=== PATIENT | female | born 1960 | race Caucasian/White ===

== ENCOUNTER → 2017-01-25 | Outpatient (CLI) | payer BC ==
[~2017-01-25] MED LIST: ALEN70TA4 PO; ASCA500 PO; ASPCH81X PO; CALC-20 PO; CHOL100010 PO; CLB/200 PO; FRRS300 PO; HYDR0.5T PO; HYDR25TA5 PO; LISI-461 PO; MAGN100C2 PO; METR1GEL3 TOP; OMEG10007 PO; OMEP40CA PO; ONDA8TAB7 PO; PRED-301 PO; SENNTAB23 PO; SIMV10TA2 PO; SYN137 PO; TOFA1TAB PO; TRAM-10 PO
--- NOTE | 2017-01-26 13:55 | MAMMOGRAPHY REPORT ---
BILATERAL DIGITAL SCREENING MAMMOGRAM TOMOSYNTHESIS WITH CAD: 01/25/2017 CLINICAL HISTORY: Routine screening. Patient has no complaints. TECHNIQUE: Breast tomosynthesis in addition to standard 2D mammography was performed. Current study was also evaluated with a Computer Aided Detection (CAD) system. COMPARISON: Comparison is made to exams dated: 01/23/2016 mammogram, 02/12/2015 mammogram, 02/06/2014 m ammogram, 01/15/2013 mammogram, 04/14/2011 mammogram, and 04/06/2010 mammogram - [facility] nter. BREAST COMPOSITION: The tissue of both breasts is almost entirely fatty. FINDINGS: There is stable nodularity anteriorly in the breasts. Scattered benign-appearing calcific ations bilaterally. No suspicious mass, architectural distortion or cluster of new, suspicious micr ocalcifications is seen. IMPRESSION: ACR BI-RADS CATEGORY 1: NEGATIVE There is no mammographic evidence of malignancy. A 1 year screening mammogram is recommended. The p atient will receive written notification of the results. Approximately 10% of breast cancers are not detected with mammography. A negative mammographic repor t should not delay biopsy if a clinically suggestive mass is present. Jailyn Treadwell M.D. ay/:01/25/2017 17:19:07 Snow Removal/Plowing: Dana MAGAÑA(Jose)(Sarah)(BD), [facility] letter sent: Normal 1/2 BI-RADS Code: ACR BI-RADS Category 1: Negative
== END | disposition home or self-care (01) ==
LOC: C.MAMM 16:10
PROVIDERS: ATTEND Internal Medicine
DX: Z12.31 Encounter for screening mammogram for malignant neoplasm of breast (principal)

== ENCOUNTER → 2017-02-23 | Outpatient (CLI) | payer BC ==
[2017-02-23 09:41] LABS: MEAN CELL VOLUME 95.9 fL (80-100); MEAN CORPUSCULAR HEMOGLOBIN 31.5 pg (25-34); MEAN CORPUSCULAR HGB CONC 32.9 g/dl (32-36); MEAN PLATELET VOLUME 12.4 fL (7.4-10.4); PLATELET COUNT 201 K/uL (130-400); RED BLOOD COUNT 4.38 M/uL (4.2-5.4); WHITE BLOOD COUNT 9.37 K/uL (4.8-10.8)
[2017-02-23 10:04] LABS: ALT/SGPT 97 U/L (12-78); AST/SGOT 94 U/L (15-37); BLOOD UREA NITROGEN 10 mg/dl (7-18); BUN/CREATININE RATIO 15.1 (10-20); CARBON DIOXIDE 33 mmol/L (21-32); CHLORIDE 105 mmol/L (98-107); CREATININE 0.67 mg/dl (0.60-1.20); GLUCOSE 112 mg/dl (70-99); POTASSIUM 3.7 mmol/L (3.5-5.1); SODIUM 143 mmol/L (136-145)
[2017-02-23 10:15] LABS: ESTIMATED AVERAGE GLUCOSE 154 mg/dl; HA1C FLAG Normal (Normal)
[2017-02-23 10:18] LABS: ALKALINE PHOSPHATASE 59 U/L (45-117); CHOLESTEROL 150 mg/dl (0-200); CHOLESTEROL/HDL RATIO 2.1; HDL CHOLESTEROL 70 mg/dl; LDL CHOLESTEROL CALCULATED 60 mg/dl; TRIGLYCERIDES 100 mg/dl (0-150); VERY LOW DENSITY LIPOPROT CALC 20 mg/dl
== END | disposition home or self-care (01) ==
LOC: C.LAB 06:54
PROVIDERS: ATTEND Internal Medicine
DX: E78.5 Hyperlipidemia, unspecified (principal); E87.6 Hypokalemia; K76.0 Fatty (change of) liver, not elsewhere classified; E11.9 Type 2 diabetes mellitus without complications; E03.8 Other specified hypothyroidism; M67.441 Ganglion, right hand; Z51.81 Encounter for therapeutic drug level monitoring; M05.79 Rheumatoid arthritis with rheumatoid factor of multiple sites without organ or systems involvement

== ENCOUNTER → 2017-04-19 | Outpatient (CLI) | payer BC ==
[2017-04-19 07:28] LABS: BASO % 0.6 %; BASO ABS # 0.04 K/uL (0-0.2); EOS % 1.6 %; HEMATOCRIT 40.7 % (37-47); IG% 0.3 %; LYMPH % 21.4 %; LYMPH ABS # 1.51 K/uL (1.2-3.4); MEAN CELL VOLUME 91.7 fL (80-100); MEAN CORPUSCULAR HEMOGLOBIN 30.6 pg (25-34); MEAN PLATELET VOLUME 11.6 fL (7.4-10.4); MONO % 8.1 %; PLATELET COUNT 171 K/uL (130-400); RED BLOOD COUNT 4.44 M/uL (4.2-5.4); WHITE BLOOD COUNT 7.06 K/uL (4.8-10.8)
[2017-04-19 07:37] LABS: COMPLETE YES; MEAN CORPUSCULAR HGB CONC 33.4 g/dl (32-36)
== END | disposition home or self-care (01) ==
LOC: C.LAB 07:03
PROVIDERS: ATTEND Physician Assistant
DX: Z01.812 Encounter for preprocedural laboratory examination (principal)

== ENCOUNTER → 2017-04-19 | Outpatient (CLI) | payer BC ==
[2017-04-19 10:05] LABS: ESTIMATED AVERAGE GLUCOSE 163 mg/dl; HA1C FLAG Normal (Normal)
[2017-04-19 10:32] LABS: THYROID STIMULATING HORMONE 0.273 uIu/ml (0.300-4.500)
== END | disposition home or self-care (01) ==
LOC: C.LAB 07:04
PROVIDERS: ATTEND Internal Medicine
DX: E11.9 Type 2 diabetes mellitus without complications (principal); E03.9 Hypothyroidism, unspecified; R94.5 Abnormal results of liver function studies

== ENCOUNTER → 2017-08-31 | Outpatient (CLI) | payer BC ==
[~2017-08-31] MED LIST changes: -PRED-301 PO
[2017-08-31 13:15] LABS: LYME DISEASE AB IGG NEG (NEG); LYME DISEASE AB IGM NEG (NEG)
== END | disposition home or self-care (01) ==
LOC: C.LAB 09:59
PROVIDERS: ATTEND Nurse Practitioner Family
DX: M75.81 Other shoulder lesions, right shoulder (principal)

== ENCOUNTER → 2017-10-31 | Outpatient (CLI) | payer BC | END | disposition home or self-care (01) | LOC: C.LAB 07:07 | PROVIDERS: ATTEND Family Medicine | DX: E03.9 Hypothyroidism, unspecified (principal) ==

== ENCOUNTER → 2017-11-08 | Outpatient (CLI) | payer BC ==
[2017-11-08 09:32] LABS: BASO % 0.7 %; BASO ABS # 0.05 K/uL (0-0.2); EOS % 1.6 %; EOS ABS # 0.12 K/uL (0-0.5); HEMATOCRIT 40.1 % (37-47); HEMOGLOBIN 13.8 g/dL (12.0-16.0); IG# 0.02 K/uL (0.00-0.02); LYMPH % 24.1 %; MEAN CELL VOLUME 93.5 fL (80-100); MEAN CORPUSCULAR HEMOGLOBIN 32.2 pg (25-34); MEAN CORPUSCULAR HGB CONC 34.4 g/dl (32-36); MEAN PLATELET VOLUME 12.2 fL (7.4-10.4); MONO % 8.6 %; MONO ABS # 0.64 K/uL (0.11-0.59); NEUT % 64.7 %; NEUT ABS # 4.83 K/uL (1.4-6.5); PLATELET COUNT 194 K/uL (130-400); RED CELL DISTRIBUTION WIDTH CV 12.8 % (11.5-14.5); RED CELL DISTRIBUTION WIDTH SD 43.4 fL (36.4-46.3); WHITE BLOOD COUNT 7.46 K/uL (4.8-10.8)
[2017-11-08 09:53] LABS: ALKALINE PHOSPHATASE 59 U/L (45-117); ALT/SGPT 74 U/L (12-78); BLOOD UREA NITROGEN 9 mg/dl (7-18); CALCIUM 9.3 mg/dl (8.5-10.1); CARBON DIOXIDE 26 mmol/L (21-32); CREATININE 0.72 mg/dl (0.60-1.20); GLUCOSE 133 mg/dl (70-99); POTASSIUM 3.5 mmol/L (3.5-5.1); SODIUM 137 mmol/L (136-145)
[2017-11-08 09:59] LABS: ALBUMIN 3.4 gm/dl (3.4-5.0); AST/SGOT 86 U/L (15-37); CHOLESTEROL 140 mg/dl (0-200); LDL CHOLESTEROL CALCULATED 54 mg/dl; TOTAL PROTEIN 7.8 gm/dl (6.4-8.2)
== END | disposition home or self-care (01) ==
LOC: C.LAB 06:38
PROVIDERS: ATTEND Internal Medicine Rheumatology
DX: M05.89 Other rheumatoid arthritis with rheumatoid factor of multiple sites (principal); Z79.899 Other long term (current) drug therapy; Z51.81 Encounter for therapeutic drug level monitoring

== ENCOUNTER → 2018-02-28 | Outpatient (CLI) | payer BC ==
--- NOTE | 2018-03-01 14:21 | MAMMOGRAPHY REPORT ---
BILATERAL DIGITAL SCREENING MAMMOGRAM TOMOSYNTHESIS WITH CAD: 02/28/2018 CLINICAL HISTORY: Routine screening. Patient has no complaints. TECHNIQUE: Breast tomosynthesis in addition to standard 2D mammography was performed. Current study was also evaluated with a Computer Aided Detection (CAD) system. COMPARISON: Comparison is made to exams dated: 01/25/2017 mammogram, 01/23/2016 mammogram, 02/12/2015 ma mmogram, 02/06/2014 mammogram, 01/15/2013 mammogram, and 04/14/2011 mammogram - [facility] er. BREAST COMPOSITION: The tissue of both breasts is almost entirely fatty. FINDINGS: There is a 6 mm lobulated and circumscribed mass in the upper outer anterior right breast for which additional targeted ultrasound and possible additional mammographic views are recommended. No other new suspicious mass, architectural distortion or cluster of microcalcifications is seen. IMPRESSION: ACR BI-RADS CATEGORY 0: INCOMPLETE EVALUATION: NEED ADDITIONAL IMAGING EVALUATION The 6 mm lobulated mass in the upper outer anterior right breast needs additional evaluation. The patient will be called to schedule an appointment. Approximately 10% of breast cancers are not detected with mammography. A negative mammographic report should not delay biopsy if a clinically suggestive mass is present. Jailyn Treadwell M.D. ay/:02/28/2018 15:21:42 Handbook Writer: Kelsey GOODE)(Sarah), [facility] letter sent: Addl Imaging 0 BI-RADS Code: ACR BI-RADS Category 0: Incomplete Evaluation: Need Additional Imaging Evaluation
== END | disposition home or self-care (01) ==
LOC: C.MAMM 14:29
PROVIDERS: ATTEND Internal Medicine
DX: Z12.31 Encounter for screening mammogram for malignant neoplasm of breast (principal); N63.11 Unspecified lump in the right breast, upper outer quadrant

== ENCOUNTER 2022-04-26 05:15 | Observation (INO) ==
--- NOTE | 2022-03-24 08:32 | PAT Medication Instructions ---
Medication Instructions Date of Service March 24, 2022 Home Medications Medication Instructions Recorded ibuprofen 800 mg tablet 800 mg PO Q6H PRN #30 tab 04/06/21 ondansetron HCl 4 mg tablet 4 mg PO Q6H PRN #20 tab 09/25/21 (Zofran) celecoxib 200 mg capsule (Celebrex) 200 mg PO Q12H 90 Days #180 cap 11/10/21 levothyroxine 175 mcg tablet 175 mcg PO QAM #90 tab 12/14/21 famotidine 40 mg tablet 40 mg PO PM #90 tab 01/19/22 omeprazole 40 mg capsule,delayed 40 mg PO QAM #90 cap 02/08/22 release semaglutide (Ozempic) 0.25 mg SUBCUT .COMPLEX #1.5 ml 02/08/22 hydrochlorothiazide 25 mg tablet 25 mg PO QAM #90 tab 02/15/22 atorvastatin 10 mg tablet 10 mg PO QPM #90 tab 03/10/22 ascorbic acid (vitamin C) 1,000 mg tablet (Vitamin C) 1 g PO QAM calcium carb,cit ER 600 mg-vit D3 12.5 mcg (500 unit) tablet,ext.rel 1 tab PO BID cholecalciferol (vitamin D3) 50 mcg (2,000 unit) tablet (Vitamin D3) 2,000 unit PO QAM magnesium 250 mg tablet 250 mg PO QAM omega 9-kso-fyv-fish oil 1,000 mg (120 mg-180 mg) capsule (Fish Oil) 1,000 mg PO BID ferrous sulfate, dried 159 mg (45 mg iron) tablet,extended release (iron ER) 159 mg PO QAM golimumab 50 mg/0.5 mL subcutaneous pen injector (Simponi) 50 mg SUBCUT MONTHLY ibuprofen 800 mg tablet 800 mg PO Q6H PRN aspirin 81 mg tablet,delayed release 81 mg PO QAM ondansetron HCl 4 mg tablet (Zofran) 4 mg PO Q6H PRN celecoxib 200 mg capsule (Celebrex) 200 mg PO Q12H prednisone 20 mg tablet 20 mg PO DAILY PRN levothyroxine 175 mcg tablet 175 mcg PO QAM famotidine 40 mg tablet 40 mg PO PM omeprazole 40 mg capsule,delayed release 40 mg PO QAM semaglutide (Ozempic) 0.25 mg SUBCUT .COMPLEX hydrochlorothiazide 25 mg tablet 25 mg PO QAM atorvastatin 10 mg tablet 10 mg PO QPM hydroxychloroquine 200 mg tablet (Plaquenil) 400 mg PO QPM lisinopril 10 mg tablet 10 mg PO QAM metformin 1,000 mg tablet 2,000 mg PO BID potassium chloride 20 mEq tablet,extended release 20 meq PO QAM Continue as directed ondansetron HCl 4 mg tablet (Zofran) 4 mg PO Q6H PRN(if needed) prednisone 20 mg tablet 20 mg PO DAILY PRN(if needed) ASK your surgeon for instructions ibuprofen 800 mg tablet 800 mg PO Q6H PRN celecoxib 200 mg capsule (Celebrex) 200 mg PO Q12H ASK your prescriber and surgeon golimumab 50 mg/0.5 mL subcutaneous pen injector (Simponi) 50 mg SUBCUT MONTHLY hydroxychloroquine 200 mg tablet (Plaquenil) 400 mg PO QPM STOP taking 2 weeks before surgery omega 9-nnu-jog-fish oil 1,000 mg (120 mg-180 mg) capsule (Fish Oil) 1,000 mg PO BID DO NOT take the morning of surgery ascorbic acid (vitamin C) 1,000 mg tablet (Vitamin C) 1 g PO QAM calcium carb,cit ER 600 mg-vit D3 12.5 mcg (500 unit) tablet,ext.rel 1 tab PO BID cholecalciferol (vitamin D3) 50 mcg (2,000 unit) tablet (Vitamin D3) 2,000 unit PO QAM magnesium 250 mg tablet 250 mg PO QAM ferrous sulfate, dried 159 mg (45 mg iron) tablet,extended release (iron ER) 159 mg PO QAM semaglutide (Ozempic) 0.25 mg SUBCUT .COMPLEX hydrochlorothiazide 25 mg tablet 25 mg PO QAM lisinopril 10 mg tablet 10 mg PO QAM metformin 1,000 mg tablet 2,000 mg PO BID potassium chloride 20 mEq tablet,extended release 20 meq PO QAM Take morning of surgery With a small sip of water, OTHERWISE NOTHING TO EAT OR DRINK AFTER MIDNIGHT: aspirin 81 mg tablet,delayed release 81 mg PO QAM (unless directed otherwise by surgeon) levothyroxine 175 mcg tablet 175 mcg PO QAM omeprazole 40 mg capsule,delayed release 40 mg PO QAM Take evening before surgery calcium carb,cit ER 600 mg-vit D3 12.5 mcg (500 unit) tablet,ext.rel 1 tab PO BID famotidine 40 mg tablet 40 mg PO PM atorvastatin 10 mg tablet 10 mg PO QPM metformin 1,000 mg tablet 2,000 mg PO BID Other Notes If you have any questions please call us at [phone] or [phone] or [phone] or [phone]
--- NOTE | 2022-03-25 08:47 | Anesthesiology Consultation ---
Date of Service March 25, 2022 Assessment & Plan (1) Encounter for pre-operative examination: Chart Review Chart Review: Acceptable Risk for Surgery (pending preop Covid testing results ) and Patient seen in Pre Admission Testing - Check BSG AM DOS Per PAT appt on 03/25/22, patient denies any recent travel or large group activities. No known Covid positive exposures or Covid related symptoms. No known Covid infection in the past 90 days. Pt is vaccinated for Covid. Preop Covid testing scheduled 04/22/22 = will await results. Educated on importance of self quarantining, social distancing and wearing mask in public for the patient one week prior to surgery and after Covid testing done Pt last seen by PCP 02/08/22= seen for wellness exam. DM- controlled. Will start Ozempic and stop Invokana. HTN- well controlled. Hyperlipidemia- on statin. Obesity- encouraged weight loss. Hypothyroidism- on levothyroxine. GERD- well controlled. RA- continue with rheum. Teaching & Discussion Pre-Anesthesia Teaching/Discussion Notes: Instructed NPO after midnight before surgery,except medications with 15 cc of water. Medication instructions provided according to the [facility] guidelines. History Surgery Operation Date: 04/26/22 08:50 Proposed Procedures p Right Anterior Total Hip Arthroplasty - Juvenal Gil, DO Height/Weight Height: 5 ft 8 in Weight: 119.2 kg Allergies Allergy/AdvReac Type Severity Reaction Status Date / Time levofloxacin Allergy Mild RASH Verified 03/24/22 08:03 codeine AdvReac Mild N & V Verified 03/24/22 08:03 sulfamethoxazole AdvReac Mild mental Verified 03/24/22 08:03 [From Bactrim] changes tocilizumab [From Actemra] AdvReac Mild Hives Verified 03/24/22 08:03 trimethoprim [From Bactrim] AdvReac Mild mental Verified 03/24/22 08:03 changes Medications Home Medications Medication Instructions Recorded Confirmed Last Taken ascorbic acid (vitamin C) 1,000 mg 1 g PO QAM 07/27/18 03/24/22 08/03/20 tablet (Vitamin C) calcium carb,cit ER 600 mg-vit D3 1 tab PO BID 07/27/18 03/24/22 08/03/20 12.5 mcg (500 unit) tablet,ext.rel cholecalciferol (vitamin D3) 50 2,000 unit PO QAM 07/27/18 03/24/22 08/03/20 mcg (2,000 unit) tablet (Vitamin D3) magnesium 250 mg tablet 250 mg PO QAM 07/27/18 03/24/22 08/03/20 omega 6-ldl-rmh-fish oil 1,000 mg 1,000 mg PO BID 07/27/18 03/24/22 08/03/20 (120 mg-180 mg) capsule (Fish Oil) ferrous sulfate, dried 159 mg (45 159 mg PO QAM 06/01/20 03/24/22 08/03/20 mg iron) tablet,extended release (iron ER) golimumab 50 mg/0.5 mL 50 mg SUBCUT MONTHLY ml 01/19/21 03/24/22 Unknown subcutaneous pen injector (Simponi) ibuprofen 800 mg tablet 800 mg PO Q6H PRN #30 tab 04/06/21 03/24/22 Unknown aspirin 81 mg tablet,delayed 81 mg PO QAM 07/22/21 03/24/22 Unknown release ondansetron HCl 4 mg tablet 4 mg PO Q6H PRN #20 tab 09/25/21 03/24/22 Unknown (Zofran) celecoxib 200 mg capsule (Celebrex) 200 mg PO Q12H 90 Days #180 cap 11/10/21 03/24/22 Unknown prednisone 20 mg tablet 20 mg PO DAILY PRN 11/23/21 03/24/22 Unknown levothyroxine 175 mcg tablet 175 mcg PO QAM #90 tab 12/14/21 03/24/22 Unknown famotidine 40 mg tablet 40 mg PO PM #90 tab 01/19/22 03/24/22 Unknown omeprazole 40 mg capsule,delayed 40 mg PO QAM #90 cap 02/08/22 03/24/22 Unknown release semaglutide (Ozempic) 0.25 mg SUBCUT .COMPLEX #1.5 ml 02/08/22 03/24/22 Unknown hydrochlorothiazide 25 mg tablet 25 mg PO QAM #90 tab 02/15/22 03/24/22 Unknown atorvastatin 10 mg tablet 10 mg PO QPM #90 tab 03/10/22 03/24/22 Unknown hydroxychloroquine 200 mg tablet 400 mg PO QPM 03/24/22 03/24/22 Unknown (Plaquenil) lisinopril 10 mg tablet 10 mg PO QAM 03/24/22 03/24/22 Unknown metformin 1,000 mg tablet 2,000 mg PO BID 03/24/22 03/24/22 Unknown potassium chloride 20 mEq 20 meq PO QAM 03/24/22 03/24/22 Unknown tablet,extended release Past Medical History Medical History Anemia Hx - taking iron Depression situational, therapy. no medications. Diabetes mellitus, type 2 NIDDM Glucose stable per patient GERD (gastroesophageal reflux disease) Well controlled and stable History of COVID-19 08/2021 - home test - headache - no hospitalization - resolved Hyperlipidemia Hypertension Hypothyroidism Lumbar facet joint syndrome Nausea and vomiting after administration of anesthetic agent Rheumatoid arthritis Follows Dr. Juan in [place]- stable Spinal stenosis Exercise / Class Metabolic Activity II 4-5 Yardwork/Stairs/Walk up hill (one flight of stairs - no chest pain or SOB ) Past Family History Family History Mother Stroke Diabetes Hypertension Liver cancer Aunt Stroke Colorectal cancer Father Cognitive changes Hypertension Brother No known health problems Other Family history non-contributory Denies family history of Colon cancer Ovarian cancer Prostate cancer Myocardial infarction Breast cancer Past Surgical History Surgical History History of cataract surgery bilateral History of cholecystectomy History of colonoscopy History of total abdominal hysterectomy (~2010) Hx of hand surgery S/P LASIK surgery of both eyes S/P lumbar fusion Total knee replacement status bilateral Past Anesthesia History No Hx of Anesthesia Complications (with exception to PONV ) and No Family Hx of Anesthesia Complications History of PONV No Hx of Motion Sickness and History of PONV (occ relieved with pre-medication with IV anti-nausea medications ) Social History Smoking Status: Former smoker tobacco type: cigarettes Do You Dip or Chew Tobacco: No Smoking End Date: 1997 Hx Alcohol Use: Yes Alcohol type: beer, wine and hard liquor alcohol intake frequency: a few times a week Hx Substance Use: No substance use type: does not use Review of Systems Hx of snoring - hx of sleep study- no NALINI Patient denies chest pain, shortness of breath, dyspnea on exertion, cough, wheezing, palpitations. No hx of seizures, stroke, MT. No hx of blood clots or blood transfusions Physical Exam Vital Signs VITALS BP 138/81 P 87 TEMP 98.2 SP02 96% RESP 16 Constitutional no acute distress ENMT Mouth: no TMJ clicking Thyromental Distance: < 3.5 Finger Breadths (3.0) Mallampati Class: II (smaller airway ) Full upper denture Missing bottom molars Neck neck extension not limited Respiratory normal respiratory effort; no respiratory distress Auscultation: lungs clear to auscultation bilaterally; no wheezes Cardiovascular Rate/Rhythm: regular rate and regular rhythm Heart Sounds: no murmur Vessels: no carotid bruit Musculoskeletal Spine: no pain with cervical ROM Extremities: extremities normal to inspection Psychiatric Orientation: alert Lab Results Anesthesia Preop Results Results Anesthesia Widget: WBC 7.77 K/uL (4.8-10.8) 03/25/22 Hgb 11.8 g/dL (12.0-16.0) L 03/25/22 Hct 37.0 % (37-47) 03/25/22 Plt 222 K/uL (130-400) 03/25/22 Na 140 mmol/L (136-145) 03/25/22 K 4.5 mmol/L (3.5-5.1) 03/25/22 Cl 104 mmol/L (98-107) 03/25/22 CO2 27 mmol/L (21-32) 03/25/22 BUN 13 mg/dl (6-23) 03/25/22 Creat 0.95 mg/dl (0.6-1.2) 03/25/22 Glucose Level 100 mg/dl (70-99(Fasting)) H 03/25/22 PT 11.4 Seconds (9.0-12.0) 03/25/22 PTT 28.6 Seconds (21.0-31.0) 03/25/22 INR 1.1 (0.9-1.1) 03/25/22 HA1c 6.4 % (4.5-5.6) H 03/25/22 Blood Type A Positive 03/25/22 Antibody Screen NEGATIVE 03/25/22 Testing Electrocardiogram Date: 03/25/22 Ectopic atrial rhythm at 85bpm. (Discussed EKG findings with Dr. Wilkins who reviewed the EKG- pt has no known arrhythmias noted in PMH, good functional status. Pt can proceed as scheduled) Chest X-Ray Date: 03/25/22 Findings: + NAD Cervical Spine Date: 03/25/22 No acute abnormality
--- NOTE | 2022-04-22 09:49 | History & Physical Report ---
Date of Service April 22, 2022 Assessment & Plan (1) Osteoarthritis of right hip: We will proceed with a right anterior total arthroplasty. Postoperatively she will be started on aspirin for DVT prophylaxis and kept overnight in the hospital for postop medical management. She plans to go to outpatient physical therapy upon discharge. History of Present Illness Chief Complaint: Osteoarthritis of the right hip. Primary Care Provider: Lubna Barker MD Lucy is a 61-year-old female who has been having longstanding history of increasing right hip pain. It is becoming very debilitating for her. She has treated it conservatively over the years with cortisone injections and ablation however they are becoming ineffective at this time. X-rays have been diagnostic for osteoarthritis of the right hip. After failing conservative treatment, she has elected to proceed with a right total hip arthroplasty. Allergies Allergy/AdvReac Type Severity Reaction Status Date / Time levofloxacin Allergy Mild RASH Verified 03/24/22 08:03 codeine AdvReac Mild N & V Verified 03/24/22 08:03 sulfamethoxazole AdvReac Mild mental Verified 03/24/22 08:03 [From Bactrim] changes tocilizumab [From Actemra] AdvReac Mild Hives Verified 03/24/22 08:03 trimethoprim [From Bactrim] AdvReac Mild mental Verified 03/24/22 08:03 changes Home Medications Medication Instructions Recorded Confirmed Type ascorbic acid (vitamin C) 1,000 mg 1 g PO QAM 07/27/18 03/24/22 History tablet (Vitamin C) calcium carb,cit ER 600 mg-vit D3 1 tab PO BID 07/27/18 03/24/22 History 12.5 mcg (500 unit) tablet,ext.rel cholecalciferol (vitamin D3) 50 2,000 unit PO QAM 07/27/18 03/24/22 History mcg (2,000 unit) tablet (Vitamin D3) magnesium 250 mg tablet 250 mg PO QAM 07/27/18 03/24/22 History omega 6-qmz-wpv-fish oil 1,000 mg 1,000 mg PO BID 07/27/18 03/24/22 History (120 mg-180 mg) capsule (Fish Oil) ferrous sulfate, dried 159 mg (45 159 mg PO QAM 06/01/20 03/24/22 History mg iron) tablet,extended release (iron ER) golimumab 50 mg/0.5 mL 50 mg subcut MONTHLY 01/19/21 03/24/22 History subcutaneous pen injector (Simponi) ibuprofen 800 mg tablet 800 mg PO Q6H PRN pain #30 tabs 04/06/21 03/24/22 Rx aspirin 81 mg tablet,delayed 81 mg PO QAM 07/22/21 03/24/22 History release ondansetron HCl 4 mg tablet 4 mg PO Q6H PRN nausea and 09/25/21 03/24/22 Rx (Zofran) vomiting #20 tabs celecoxib 200 mg capsule (Celebrex) 200 mg PO Q12H 90 days #180 caps 11/10/21 03/24/22 Rx prednisone 20 mg tablet 20 mg PO DAILY PRN for flare up 11/23/21 03/24/22 History levothyroxine 175 mcg tablet 175 mcg PO QAM #90 tabs 12/14/21 03/24/22 Rx famotidine 40 mg tablet 40 mg PO PM #90 tabs 01/19/22 03/24/22 Rx omeprazole 40 mg capsule,delayed 40 mg PO QAM #90 caps 02/08/22 03/24/22 Rx release semaglutide (Ozempic) 0.25 mg (0.2 mL) subcut .COMPLEX 02/08/22 03/24/22 Rx #1.5 mL hydrochlorothiazide 25 mg tablet 25 mg PO QAM #90 tabs 02/15/22 03/24/22 Rx atorvastatin 10 mg tablet 10 mg PO QPM #90 tabs 03/10/22 03/24/22 Rx hydroxychloroquine 200 mg tablet 400 mg PO QPM 03/24/22 03/24/22 History (Plaquenil) lisinopril 10 mg tablet 10 mg PO QAM 03/24/22 03/24/22 History metformin 1,000 mg tablet 2,000 mg PO BID 03/24/22 03/24/22 History potassium chloride 20 mEq 20 meq PO QAM 03/24/22 03/24/22 History tablet,extended release Past Med/Surg History Medical History Anemia Hx - taking iron Depression situational, therapy. no medications. Diabetes mellitus, type 2 NIDDM Glucose stable per patient GERD (gastroesophageal reflux disease) Well controlled and stable History of COVID-19 08/2021 - home test - headache - no hospitalization - resolved Hyperlipidemia Hypertension Hypothyroidism Lumbar facet joint syndrome Nausea and vomiting after administration of anesthetic agent Rheumatoid arthritis Follows Dr. Juan in [place]- stable Spinal stenosis Surgical History History of cataract surgery bilateral History of cholecystectomy History of colonoscopy History of total abdominal hysterectomy (~2010) Hx of hand surgery S/P LASIK surgery of both eyes S/P lumbar fusion Total knee replacement status bilateral Family History Mother Stroke Diabetes Hypertension Liver cancer Aunt Stroke Colorectal cancer Father Cognitive changes Hypertension Brother No known health problems Other Family history non-contributory Denies family history of Colon cancer Ovarian cancer Prostate cancer Myocardial infarction Breast cancer Social History Smoking Status: Former smoker Age Started Using Tobacco: 17; Age Quit Using Tobacco: 46; packs per day: 1; Second Hand Exposure: No; Hx Alcohol Use: Yes Alcohol type: beer, wine and hard liquor Alcohol Intake Frequency: 2-3 x/Week Hx Substance Use: No Preferred Language: Lithuanian Communication Ability: Effective Visual Impairment: No Limitations Hearing Ability: Normal Manager Photography Required: No Beliefs That Will Affect Care: None marital status: Single Current Living Situation: Significant Other current occupational status: employed 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 Physical Exam On physical examination of the right hip, she walks with antalgic gait. I can flex to 90 degrees but she has limitations on internal and external rotation. All of her pain is located in her groin.. Constitutional WD/WN, vitals as above Eyes PERRL, conjunctivae normal, anicteric sclerae ENMT external ear and nose normal, oropharynx normal Neck trachea midline, no thyromegaly Respiratory normal respiratory effort, lungs clear to auscultation Cardiovascular RRR, no murmur, no edema Gastrointestinal (Abdomen) normal bowel sounds, soft, nontender, no hepatosplenomegaly Skin no rashes, warm and dry Psychiatric A+Ox3, euthymic affect Results & Data Results & Data Laboratory Results . Diagnostic Findings X-rays of the right hip show advanced osteoarthritis with joint space narrowing, osteophyte formation, and [id number] articulation. PG Care Time/CCT Total # of Minutes Spent Total Time Spent with Patient: Total time spent is greater than 50% in coordination of care (as documented) at patient's floor/unit and/or counseling patient: Coding Level of Care Code None Diagnoses Osteoarthritis of right hip M16.11
[2022-04-26] MEDS ORDERED: GABAPENTIN 600 MG DOSE PO SCH (06:00)
[2022-04-26] MEDS ORDERED: TRANEXAMIC ACID 1,000 MG **IV Intra-op IV SCH (06:00)
[2022-04-26] MEDS ORDERED: TRANEXAMIC ACID 1,000 MG **IV Pre-op IV SCH (06:00)
[2022-04-26] MEDS ORDERED: LR 500ML BOLUS, THEN 15ML/HR IV SCH (06:00)
[2022-04-26] MEDS ORDERED: ACETAMINOPHEN 500 MG TAB PO SCH (06:00)
[2022-04-26] MEDS ORDERED: dexAMETHasone 4 MG TAB PO SCH (06:00)
[2022-04-26] MEDS ORDERED: LR 60ML/HR IV SCH (06:00)
[2022-04-26] MEDS ORDERED: Ketorolac (*for OR use only*) 30 MG, dexAMETHasone 4 MG, KETAMINE HCL (**OR use only) 1... INFIL SCH (06:00)
[2022-04-26] MEDS ORDERED: ceFAZolin 2000MG 2,000 MG/15 ML SYR IV SCH (06:00)
[2022-04-26] MEDS ORDERED: BUPIVACAINE 0.5 % 5 MG/1 ML PF 10ML VIAL ONE (06:24)
[2022-04-26] MEDS ORDERED: ORTHO JOINT ANESTHETIC ONE (06:40)
[2022-04-26] MEDS ORDERED: MIDAZOLAM HCL 1 MG/ML 2ML VIAL ONE ×2 (06:42→06:49)
--- NOTE | 2022-04-26 06:58 | History & Physical Bridge Note ---
Date of Service April 26, 2022 History & Physical Bridge Note I have examined the patient, reviewed the History & Physical and in the interval since the performance of the History & Physical I have noted the following changes of clinical significance: no changes noted
[2022-04-26] MEDS ORDERED: ePHEDrine sulfate 50 MG/ML AMP IV PRN (07:07)
[2022-04-26] MEDS ORDERED: ATROPINE SULFATE 0.1 MG/ML 10ML SYR IV PRN (07:07)
[2022-04-26] MEDS ORDERED: fentaNYL citrate 100 MCG/2 ML VIAL IV PRN (07:07)
[2022-04-26] MEDS ORDERED: ONDANSETRON INJ 2 MG/ML 2 ML VIAL IV PRN ×2 (07:07→10:09)
[2022-04-26] MEDS ORDERED: HYDROmorphone INJ 2 MG/ML SYR/VIAL IV PRN (07:07)
[2022-04-26] MEDS ORDERED: PROPOFOL IV EMULSION 10 MG/ML 20 ML VIAL IV ONE ×3 (07:41→08:33)
[2022-04-26] MEDS ORDERED: PHENYLEPHRINE HCL 10 MG/ML VIAL ONE (07:41)
[2022-04-26] MEDS ORDERED: KETAMINE 50 MG/5 ML SYRINGE ONE (07:44)
--- NOTE | 2022-04-26 08:51 | Operative Report ---
PG Post Operative Report Pre & Post Diagnosis Operation Date: 04/26/22 07:00 Pre-Op Diagnosis: Degenerative joint disease Right Hip Post-Op Diagnosis: Degenerative joint disease Right Hip I identified the patient and participated in the time-out.: Yes Procedure Operation Date: 04/26/22 07:00 Actual Procedures p Right Anterior Total Hip Arthroplasty(Right) - Juvenal Gil DO Surgeon Juvenal Gil DO Mirror Inspector Everette Askew, PAC Estimated Blood Loss 250 Findings Consistent with Post-Op Diagnosis Specimens Right femoral head Description of Procedure Implants used I used a [employer]immer[employer]omet total hip arthroplasty system with a size 7.5 standard offset Avenir Complete stem, a 48 mm G7 cup with a 25mm screw, an E1 poly ethylene liner, a 32 mm ceramic head with a +7 neck. Lucy arrived at the hospital for the above procedure. She was seen in the preoperative holding area and the operative extremity was identified and signed. She was given a spinal anesthetic, a preoperative antibiotic, and TXA. She was then taken back to the operating room and laid on the table in the supine position. She was given basic sedation. The operative leg was secured to a Puristst leg positioner. The hip was then prepped and draped in sterile fashion. A timeout was done and the patient and the operative extremity was properly identified. An anterior approach was used. Dissection was taken down through the fascia and the tensor muscle belly was retracted laterally and the rectus was retracted medially. The circumflex vessels were identified and ligated. The capsule was then incised and tagged for later repair. The femoral neck was then cut and the femoral head was removed. The acetabulum was exposed. Time was spent doing a complete circumferential labral release. Sequential reaming of the acetabulum up to a size 47 reamer was done. Final reamings were done under fluoroscopy to ensure appropriate version. A Biomet 48 mm G7 cup was then impacted into place. A single 25 mm screw was placed. The E1 polyethylene liner was then snapped into place. Surrounding soft tissues were then injected with 100 cc of an orthopedic pain control cocktail. The proximal femur was then exposed. Sequential broaching up to a size 7.5 broach was done. Off that broach a size 32 head with a +7 neck was trialed. The hip was reduced and fluoroscopic images showed anatomic alignment of the implants in acceptable length. The broach was removed. The final size 7.5 standard offset Avenir Complete stem was then impacted into place. A ceramic 32 mm head with a +7 neck was then impacted onto the stem and the hip was reduced. Final fluoroscopic images showed anatomic alignment of the hip. The capsule was then closed with #1 Vicryl suture. A dilute betadyne lavage was then done for 3 minutes. The joint was then irrigated with normal saline solution. The fascia was closed with #1 PDS suture. Skin was closed with 2-0 Vicryl, belkis, and a Silverlon dressing. She was then transferred to a hospital bed and taken to the post anesthesia care unit in stable condition. She tolerated the procedure well. Juvenal Draper PA-C, was present for the entire procedure. He was critical for patient positioning, prepping, draping, retraction exposure, wound closure and application of sterile dressing. I attest to the content of the Intraoperative Record and any orders documented therein. Any exceptions are noted below.
--- NOTE | 2022-04-26 08:59 | Fluoroscopy Report ---
FL hip RT 1V CLINICAL HISTORY: RT ANTERIOR TECHNIQUE: 2 views were obtained with the C-arm in the OR with the above procedure. Total fluoroscopy time was 27.0 seconds. Total skin dose was 3.65 mGy. Comparison: None available at the time of this dictation. FINDINGS/IMPRESSION: Intraoperative images were obtained of right hip total arthroplasty. Please correlate with intraoperative fluoroscopy and operative report. ACT 112: Negative or not required by law. Electronically signed by: Nacho Strickland M.D. 04/26/2022 8:58 AM
--- NOTE | 2022-04-26 09:47 | XRay Report ---
AP PELVIS, CROSSTABLE LATERAL RIGHT HIP History: Right total hip arthroplasty. Degenerative arthritis. Postop. FINDINGS: The patient is status post a right total hip arthroplasty. The hardware is intact. No fract ure or dislocation. IMPRESSION: Right total hip arthroplasty. No evidence for hardware complication ACT 112: Negative or not required by law. Electronically signed by: Leonard Hamilton M.D. 04/26/2022 9:45 AM
--- NOTE | 2022-04-26 10:03 | Anesthesiology Progress Note ---
Date of Service April 26, 2022 Anesthesia Post Procedure Vital Signs Vital Signs: Temp Pulse Pulse Resp BP Pulse Ox O2 Del Method 04/26/22 09:50 76 13 102/71 97 Room Air 04/26/22 09:40 36.3 C L 74 14 99/70 L 99 Room Air 04/26/22 09:30 79 15 102/51 L 100 Room Air 04/26/22 09:20 82 18 117/63 99 Room Air 04/26/22 09:10 83 15 99/62 L 100 Oxymask 04/26/22 09:00 36.6 C 87 13 99/68 L 99 Oxymask 04/26/22 05:48 37.0 C 98 H 20 142/84 H 94 Room Air O2 Flow Rate 04/26/22 09:50 04/26/22 09:40 04/26/22 09:30 04/26/22 09:20 04/26/22 09:10 4 04/26/22 09:00 6 04/26/22 05:48 Pain Intensity Right Hip: Pain Intensity: 5 Transfer of Care Handoff Completed per policy Notes Mental Status: alert / awake / arousable and participated in evaluation Patient Amnestic to Procedure: Yes Nausea / Vomiting: adequately controlled Pain: adequately controlled Airway Patency, RR, SpO2: stable & adequate BP & HR: stable & adequate Hydration State: stable & adequate Anesthetic Complications: no major complications apparent and Pt Satisfied with anesthetic care
[2022-04-26] MEDS ORDERED: metFORMIN HCL 500 MG TAB PO SCH (10:09)
[2022-04-26] MEDS ORDERED: bisacodyL 10 MG SUPP PR PRN (10:09)
[2022-04-26] MEDS ORDERED: METOCLOPRAMIDE HCL INJ 5 MG/ML 2 ML VIAL IV PRN (10:09)
[2022-04-26] MEDS ORDERED: GOLIMUMAB SQ SCH (10:09)
[2022-04-26] MEDS ORDERED: MAGNESIUM HYDROXIDE SUSP 30 ML UDC PO PRN (10:09)
[2022-04-26] MEDS ORDERED: NALOXONE HCL 0.4 MG/1 ML VIAL/CARP IV PRN (10:09)
[2022-04-26] MEDS ORDERED: NON-FORMULARY MEDICATION (Cholecalciferol (Vitamin D3) [Vitamin D3] 2,000 unit Tablet) PO SCH (10:09)
[2022-04-26] MEDS ORDERED: ONDANSETRON 4 MG OD TAB PO PRN (10:45)
[2022-04-26] MEDS: SODIUM CHLORIDE 0.9% 1000ML 1,000 ML IV SCH ×2 (11:03→21:32)
[2022-04-26] MEDS: KETOROLAC 30 MG/ML VIAL IV SCH ×3 (11:05→21:47)
[2022-04-26] MEDS: lisinopril 10 MG TAB PO SCH (11:06)
[2022-04-26] MEDS: LEVOTHYROXINE SODIUM 175 MCG TABLET PO SCH (11:09)
[2022-04-26] MEDS ORDERED: PHARMACY GLYCEMIC MGMT CONSULT PRN (13:03)
[2022-04-26] MEDS ORDERED: NovoLIN-N (NPH) PER UNIT CHARGE SQ ONE (13:15)
--- NOTE | 2022-04-26 13:18 | Pharmacy Report ---
Pharmacy Glycemic Short Note 2 - Date of Service April 26, 2022 - Glycemic Short BSG Results (Last 24 hours): 04/26/22 04/26/22 04/26/22 05:33 09:03 12:16 POC Glucose 115 H 144 H 270 H OUTPATIENT ANTIDIABETIC REGIMEN: * Metformin * Semaglutide * HbA1c 6.4% on 03/25/22 ASSESSMENT: * 61 yo F with T2DM now POD 0 s/p R LIZZ. Post-op BSG with notable elevation to 270 mg/dL * Will give NPH 0.3 units/kg - may not need ongoing basal as steroids are not continuing post-op * Will start weight-based severe stress estimate of Novolog with one overnight check PLAN FOR INPATIENT GLYCEMIC CONTROL: * Hold outpatient oral diabetes medications * Basal insulin * NPH 30 units SQ x1 * Bolus insulin * NovoLog per scale ACHS or Q6hrs while NPO * Goal Range: Low 110 mg/dL - High 140 mg/dL * Correction Factor: 15 mg/dL/unit * Nutritional / Prandial insulin per carb ratio of 1 unit per 5 grams CHO consumed
[2022-04-26] MEDS: hydroCHLOROthiazide 25 MG TAB PO SCH (13:22)
[2022-04-26] MEDS: DOCUSATE SODIUM 100 MG CAP PO SCH ×2 (13:24→21:49)
[2022-04-26] MEDS: POTASSIUM CHLORIDE CRTAB 20 MEQ TABCR PO SCH (13:24)
[2022-04-26] MEDS: MULTIVITAMIN TAB PO SCH (13:25)
[2022-04-26] MEDS: ACETAMINOPHEN 500 MG TAB PO SCH ×2 (13:25→21:51)
[2022-04-26] MEDS: ASPIRIN 81 MG ECTAB PO SCH ×2 (13:25→21:50)
[2022-04-26] MEDS ORDERED: GLUCOSE 10 TAB/TUBE PO PRN (13:30)
[2022-04-26] MEDS ORDERED: CARBOHYDRATES FOR HYPOGLYCEMIA PO PRN (13:30)
[2022-04-26] MEDS ORDERED: GLUCAGON FOR INJ 1 MG VIAL IM PRN (13:30)
[2022-04-26] MEDS ORDERED: GLUCOSE 40% GEL 15 GM TUBE PO PRN (13:30)
[2022-04-26] MEDS ORDERED: DEXTROSE 50% 50 ML SYRINGE IV PRN (13:30)
[2022-04-26] MEDS: INSULIN ASPART PER UNIT SC SCH ×3 (13:31→21:47)
[2022-04-26] MEDS: ceFAZolin 2000MG 2,000 MG/15 ML SYR IV SCH ×2 (15:55→23:20)
[2022-04-26] MEDS ORDERED: HYDROXYCHLOROQUINE SULFATE 200 MG TAB PO SCH (21:00)
[2022-04-26] MEDS ORDERED: ATORVASTATIN 10 MG TAB PO SCH (21:00)
[2022-04-26] MEDS ORDERED: SENNA 8.6 MG TAB PO SCH (21:00)
[2022-04-26] MEDS ORDERED: FAMOTIDINE 40 MG TABLET PO SCH (21:00)
[2022-04-26] MEDS: CALCIUM 600MG + VIT D 400 IU TAB PO SCH (21:48)
[2022-04-26] MEDS: OMEGA-3 (PURIFIED FISH OIL) 1 GM CAP PO SCH (21:48)
[2022-04-27] MEDS ORDERED: INSULIN ASPART PER UNIT SC ONE (02:00)
[2022-04-27] MEDS: LEVOTHYROXINE SODIUM 175 MCG TABLET PO SCH (04:56)
[2022-04-27] MEDS: ACETAMINOPHEN 500 MG TAB PO SCH ×2 (04:56→13:07)
[2022-04-27] MEDS: KETOROLAC 30 MG/ML VIAL IV SCH (04:58)
[2022-04-27] MEDS: SODIUM CHLORIDE 0.9% 1000ML 1,000 ML IV SCH (07:01)
[2022-04-27 07:22] LABS: Basophils # (auto) 0.02 K/uL (0-0.2); Basophils % (auto) 0.2 %; Hematocrit (blood only) 27.3 % (34.1-44.9); Hemoglobin 9.1 g/dl (12.0-16.0); Immature Granulocytes # (auto) 0.06 K/uL (0.00-0.02); Immature Granulocytes % (auto) 0.5 %; Lymphocytes # (auto) 1.11 K/uL (1.2-3.4); Lymphocytes % (auto) 9.8 %; Mean Corpuscular Hemoglobin 30.3 pg (25.0-34.0); Mean Corpuscular Hgb Conc 33.3 g/dL (32.0-36.0); Mean Platelet Volume 11.7 fL (9.4-12.3); Monocytes % (auto) 7.1 %; Neutrophils # (auto) 9.29 K/uL (1.4-6.5); Neutrophils % (auto) 82.4 %; Platelet Count 133 K/uL (130-400); RDW Coefficient of Variation 12.3 % (11.5-14.5); RDW Standard Deviation 40.9 fL (36.4-46.3); White Blood Count 11.28 K/ul (4.8-10.8)
[2022-04-27 07:51] LABS: BUN Creatinine Ratio 26.9 (10-20); Calcium 8.4 mg/dl (8.5-10.1); Creatinine Clr Calc Pharmacy 70.9 ml/min; Est GFR (African American) 63.7 ml/min
[2022-04-27] MEDS ORDERED: ASCORBIC ACID 500 MG TAB PO SCH (09:00)
[2022-04-27] MEDS ORDERED: PANTOprazole 40 MG TAB PO SCH (09:00)
[2022-04-27] MEDS ORDERED: MAGNESIUM OXIDE 400 MG TAB PO SCH (09:00)
[2022-04-27] MEDS ORDERED: FERROUS SULFATE 325 MG TAB PO SCH (09:00)
[2022-04-27] MEDS: ASPIRIN 81 MG ECTAB PO SCH (09:28)
[2022-04-27] MEDS: DOCUSATE SODIUM 100 MG CAP PO SCH (09:28)
[2022-04-27] MEDS: OMEGA-3 (PURIFIED FISH OIL) 1 GM CAP PO SCH (09:28)
[2022-04-27] MEDS: CALCIUM 600MG + VIT D 400 IU TAB PO SCH (09:29)
[2022-04-27] MEDS: lisinopril 10 MG TAB PO SCH (09:29)
[2022-04-27] MEDS: hydroCHLOROthiazide 25 MG TAB PO SCH (09:29)
[2022-04-27] MEDS: POTASSIUM CHLORIDE CRTAB 20 MEQ TABCR PO SCH (09:29)
[2022-04-27] MEDS: MULTIVITAMIN TAB PO SCH (09:30)
[2022-04-27] MEDS: INSULIN ASPART PER UNIT SC SCH ×2 (09:41→13:05)
--- NOTE | 2022-05-05 07:16 | Discharge Summary ---
Date of Service May 05, 2022 Admission HPI (Per Admitting) Lucy is a 61-year-old female who has been having longstanding history of increasing right hip pain. It is becoming very debilitating for her. She has treated it conservatively over the years with cortisone injections and ablation however they are becoming ineffective at this time. X-rays have been diagnostic for osteoarthritis of the right hip. After failing conservative treatment, she has elected to proceed with a right total hip arthroplasty. Admission Exam (Per Admitting) On physical examination of the right hip, she walks with antalgic gait. I can flex to 90 degrees but she has limitations on internal and external rotation. All of her pain is located in her groin.. Principal Diagnosis Same as "Discharge Diagnosis" noted below under Discharge Instructions. Discharge Data Procedures Performed Operation Date: 04/26/22 07:00 Actual Procedures p Right Anterior Total Hip Arthroplasty(Right) - Juvenal Gil DO Ordered Studies 04/26/22 07:00 FL hip RT 1V Routine Hospital Course (1) Status post right hip replacement: On April 26, 2022 Lucy arrived at [facility] and underwent a right hip replaced without complication. She had a spinal anesthetic. Postoperatively she was started on aspirin for DVT prophylaxis and transferred to the general orthopedic floors. Her hospital course was uneventful. On postop day #1, her vital signs were stable and her pain was well controlled. She was able participate well with physical therapy doing ambulation and range of motion exercises. She was then discharged home. She will follow-up with orthopedics in 2 weeks. PG Care Time/CCT Total # of Minutes Spent Total Time Spent with Patient: Total time spent is greater than 50% in coordination of care (as documented) at patient's floor/unit and/or counseling patient: Discharge Plan Discharge Items Patient Disposition: Home - Home Health Services Reason For Visit: DJD Right Hip Discharge Diagnosis: Right hip replacement Activity: Per Instructions section Non-emergency contact: Surgeon Call non-emergency contact if: your wound has increased redness and your wound has increased drainage Follow-up/Referrals: Lubna Barker MD [Primary Care Provider] - Diet: Regular Addtl Attending Provider Instructions: Activity and Therapy Recommendations: * If you are using [facility] then therapy will be provided at your home until they feel you have accomplished all of your goals. * If you are using [facility] then Physical Therapy will be provided until they feel you are ready to start Outpatient Physical Therapy. * If you are not using home therapy then Outpatient Physical Therapy should start about 3-5 days from your day of surgery. Therapy will last about 6-10 weeks * You were shown a series of exercises in the hospital. Do these exercises three times each day including the exercises you were shown in physical therapy. * Get up and walk several times each day.~ For the first four weeks, try not to stand or walk for more than one hour at a time. If you do stand or walk for more than one hour, you will not hurt anything, but your leg will likely swell.~~ * As you feel comfortable, you may change from the walker or crutches to a cane and~then to independent walking. Medications: * Narcotic You will likely be sent home from the hospital with a prescription for the narcotic pain medication that worked best throughout your stay. * Aspirin Most patients will be required to take Aspirin 81mg twice a day for 6 weeks after surgery. This is obtained [id number] and a prescription is not necessary. * Other medications may be prescribed for specific circumstances. If you have any questions, please call the office at . * Resume previous home medications unless otherwise instructed TEDs/Elastic Stockings: The white elastic stockings help limit swelling and prevent blood clots from forming in your legs. The more you wear them, the more they work. Wear them for six weeks. Dressing Care: Leave the Silverlon dressing in place for 7 days. After 7 days you may remove the dressing. If the incision is not draining then you may leave the belkis open to air. If there is a little bit of drainage or if the belkis are getting stuck on your clothing then cover the incision with a dry dressing. The belkis will be removed at your 2 week follow-up appointment. Showering: You may shower with the Silverlon dressing in place. Do not let the shower spray hit the dressing directly. Pat the Silverlon dressing dry. If the dressing becomes wet underneath, then simply remove the dressing. Keep the incision dry until you are 7 days out from the day of surgery. After 7 days you may remove the Silverlon dressing and shower with the belkis exposed. Let soapy water run over the belkis and pat them dry. Do not scrub or soak the incision. Things To Watch For: * Drainage from the incision site that occurs more than one week after your surgery. * Increased redness at the incision site. * Fever above 102 degrees Fahrenheit. * Unusual chest pain or shortness of breath. * Call [facility] at with any of the above problems Follow-Up Visit: Follow-up with Dr. Gil's PA (Juvenal Draper) 2-3 weeks after your day of surgery. He will remove your belkis and answer any questions. If you have any additional questions or concerns, Dr Gil is usually in the office at the same time and will be available An appointment was probably scheduled when you signed-up for surgery in the office. If you have any questions call Office Instructions: More detailed instructions as well as Frequently Asked Questions were provided in a folder by our office when you signed-up for surgery. Please review these instructions when you get home. If you have any further questions or concerns, please feel free to call the office at [phone] Pending Studies at Discharge: No Stand-Alone Forms: My [facility], Smoking Cessation Medications and DC Order Prescriptions: Continued ondansetron HCl [Zofran] 4 mg tablet 4 mg PO Q6H PRN (Reason: nausea and vomiting) Qty: 20 0RF celecoxib [Celebrex] 200 mg capsule 200 mg PO Q12H 90 Days Qty: 180 3RF levothyroxine 175 mcg tablet 175 mcg PO QAM Qty: 90 3RF famotidine 40 mg tablet 40 mg PO PM Qty: 90 1RF Ozempic 0.25 mg or 0.5 mg(2 mg/1.5 mL) pen injector 0.25 mg subcut .COMPLEX Qty: 1.5 3RF Rx Instructions: 0.25 mg subcut once weekly; administer 30 minutes before the first food, beverage, or other medications of the day omeprazole 40 mg capsule,delayed release(DR/EC) 40 mg PO QAM Qty: 90 1RF hydrochlorothiazide 25 mg tablet 25 mg PO QAM Qty: 90 1RF atorvastatin 10 mg tablet 10 mg PO QPM Qty: 90 3RF Simponi 50 mg/0.5 mL pen injector 50 mg subcut MONTHLY ibuprofen 800 mg tablet 800 mg PO Q6H PRN (Reason: pain) Qty: 30 1RF prednisone 20 mg tablet 20 mg PO DAILY PRN (Reason: for flare up ) Rx Instructions: patient take 20mg x1 week then 10mg x1 ascorbic acid (vitamin C) [Vitamin C] 1,000 mg Tablet 1 g PO QAM calcium carb and citrate-vitD3 600 mg calcium- 500 unit Tablet Extended Release 1 tab PO BID magnesium 250 mg Tablet 250 mg PO QAM cholecalciferol (vitamin D3) [Vitamin D3] 2,000 unit Tablet 2,000 unit PO QAM omega 3-ebv-agk-fish oil [Fish Oil] 1,000 mg (120 mg-180 mg) Capsule 1,000 mg PO BID iron 159 mg (45 mg iron) Tablet Extended Release 159 mg PO QAM hydroxychloroquine [Plaquenil] 200 mg Tablet 400 mg PO QPM metformin 1,000 mg tablet 2,000 mg PO BID lisinopril 10 mg tablet 10 mg PO QAM Rx Instructions: TAKE 1 TABLET DAILY potassium chloride 20 mEq tablet extended release 20 meq PO QAM Changed aspirin 81 mg Tablet,Delayed Release (Dr/Ec) 81 mg PO BID 42 Days Qty: 0 0RF Discharge Orders: Discharge Order (Routine); Ordered 04/27/22 Ordered By: Juvenal Beck/Other Patient Handouts: Hip Arthroscopy: After Surgery, After Hip Surgery- Getting Dressed, Hip Precautions, Hip Safety: Sleeping Positions, Hip Replace Sitting Safely Admission Data Admit Date/Time: 04/26/22 09:17 Attending Provider: Juvenal Gil Admit Provider: Juvenal Gil Primary Care Provider: Lubna Barker Other Interventions: Discharge Summary Assessment (RN) Last Done: 04/27/22 13:32
== END 2022-04-27 14:03 | disposition home health service (06) | DRG 470 ==
LOC: ASU 05:15 → 3E 09:17 → INTOOBSV 09:17

== ENCOUNTER 2022-11-29 12:32 | Inpatient (IN) ==
--- NOTE | 2022-11-29 12:49 | Emergency Department Note ---
Impression & Plan Closed hip fracture, Fall ED Provider Note NAME: KAREN LARSEN AGE: 62 SEX: F : 1960 ARRIVES VIA: Ambulance INFORMANT: Patient, ED PROVIDER(S): Ronnie Truong MD CHIEF COMPLAINT: Hip pain, fall MEDICAL DECISION MAKING: Patient presents due to concern for fall and associated hip pain that occurred earlier this morning. The patient did not have any dizziness or lightheadedness without her left side. The patient denies any head strike or LOC. Blood work was obtained and IV was established. A as needed dose of fentanyl was ordered as the patient did receive 200 mics of fentanyl in route. Patient did have left hip and pelvis x-rays obtained. Clinically the patient's left lower extremity is somewhat shortened. Patient does have pain in the left hip no obvious pain in the pelvis. Neurovascular intact distally. Patient does have a hip fracture. Patient has a normal white count mild anemia hemoglobin 11.4 platelet count is unremarkable with normal kidney function and coags. Urinalysis does not show ev idence of obvious infection. COVID-negative. Patient's chest x-ray shows no acute process. Prior /Outside records reviewed: I did review the patient's total right hip note from Dr. Gil from April 2022. Differential diagnosis: Fracture, subluxation, dislocation, contusion, ligamentous injury, neurovascular, compartment syndrome, rhabdomyolysis, as well as other pathologies. Diagnostics, as interpreted by me: ECG: Normal sinus rhythm, rate 95, normal OH and QRS, normal QT with prolonged QTc no ST elevations. Cardiac monitoring: An order was placed for continuous cardiac monitoring. The monitor shows a rate of 88 with sinus rhythm. Patient was placed on pulse oximetry Medical decision rules: none Imaging studies: See below HPI: Patient presents due to concern for left-sided hip pain status post fall. The patient states that she believes it was a slip trip and fall. The patient denies any lightheadedness or dizziness. Patient denies any head strike LOC or head or neck pain. The patient denies any chest back abdomen or upper extremity pain. The patient did fall onto her left side immediately had pain. The patient was unable to get up. EMS did arrive and transported the patient the patient did receive 200 mcg of fentanyl in route and did have improvement in symptoms. The patient did receive for Zofran as well. Patient last ate something at 8 AM and last had something to drink around 11. PAST MEDICAL HISTORY: See Below PAST SURGICAL HISTORY: See Below SOCIAL HISTORY: See Below HOME MEDICATIONS: See Below ALLERGIES: See Below VITALS: See Below PHYSICAL EXAMINATION: GENERAL: NAD, wearing a mask, non-toxic. EYE EXAM: Normal conjunctiva. PERRL, no anisocoria and EOM's grossly intact w/o pain. NECK: Supple, no nuchal rigidity, no adenopathy, non-tender. No signs of meningismus. FROM of the neck with good chin to chest and neck extension. No stridor. LUNGS: Clear to auscultation. Normal chest wall mechanics. HEART: NSR, no MRG. ABDOMEN: Abdomen soft, non-tender, normo-active bowel sounds, no masses, no rebound or guarding. BACK: No CVA TTP. SKIN: No rashes and no bruising. UPPER EXTREMITIES: Upper extremities are grossly normal. LOWER EXTREMITIES: Left lower extremity slightly shortened, SP DP and tibialis nerves intact with good left pedal pulse. Normal sensation. No obvious deformity but pain to the left hip/proximal femur area NEURO EXAM: A&O x3, cranial nerves II-XII grossly intact, normal speech, moves all 4 extremities. Past Med/Surg History Medical History Anemia Hx - taking iron Depression situational, therapy. no medications. Diabetes mellitus, type 2 NIDDM Glucose stable per patient GERD (gastroesophageal reflux disease) Well controlled and stable History of COVID-19 08/2021 - home test - headache - no hospitalization - resolved Hyperlipidemia Hypertension Hypothyroidism Lumbar facet joint syndrome Nausea and vomiting after administration of anesthetic agent Rheumatoid arthritis Follows Dr. Juan in [place]- stable Spinal stenosis Surgical History History of cataract surgery bilateral History of cholecystectomy History of colonoscopy History of total abdominal hysterectomy (~2010) Hx of hand surgery S/P LASIK surgery of both eyes S/P lumbar fusion Total knee replacement status bilateral Family History Mother Stroke Diabetes Hypertension Liver cancer Aunt Stroke Colorectal cancer Father Cognitive changes Hypertension Brother No known health problems Other Family history non-contributory Denies family history of Colon cancer Ovarian cancer Prostate cancer Myocardial infarction Breast cancer Social History Smoking Status: Former smoker Age Started Using Tobacco: 17; Age Quit Using Tobacco: 46; packs per day: 1; Second Hand Exposure: No; Hx Alcohol Use: Yes Alcohol type: beer, wine and hard liquor Alcohol Intake Frequency: 2-3 x/Week Hx Substance Use: No Preferred Language: Danish Communication Ability: Effective Visual Impairment: No Limitations Hearing Ability: Normal Director Of Manufacturing Operations Required: No Beliefs That Will Affect Care: None marital status: Life Partner Current Living Situation: Significant Other current occupational status: employed 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 Feels Safe at Home: Yes Childhood Exposure to Second-Hand Smoke: Yes Diet Comment: regular caffeine: Yes during the past year weight has: remained stable Dental Care, Regularly: Yes Physical Activity Frequency: Does not Exercise Seatbelt Use: always Sunscreen Use: Yes Do you think of yourself as: lesbian/ge/homosexual Assistive Devices: None Allergies Allergies Allergy/AdvReac Type Severity Reaction Status Date / Time tocilizumab [From Actemra] Allergy Intermediate Hives Verified 11/29/22 16:29 levofloxacin Allergy Mild RASH Verified 11/29/22 16:29 codeine AdvReac Intermediate N & V Verified 11/29/22 16:29 sulfamethoxazole AdvReac Intermediate mental Verified 11/29/22 16:29 [From Bactrim] changes trimethoprim [From Bactrim] AdvReac Intermediate mental Verified 11/29/22 16:29 changes Home Meds Home Medications Medication Instructions Recorded Confirmed calcium carb,cit ER 600 mg-vit D3 1 tab PO BID 07/27/18 11/29/22 12.5 mcg (500 unit) tablet,ext.rel cholecalciferol (vitamin D3) 50 2,000 unit PO QAM 07/27/18 11/29/22 mcg (2,000 unit) tablet (Vitamin D3) magnesium 250 mg tablet 250 mg PO QAM 07/27/18 11/29/22 omega 7-iqm-[id number]-fish oil 1,000 mg 1,000 mg PO BID 07/27/18 11/29/22 (120 mg-180 mg) capsule (Fish Oil) ferrous sulfate, dried 159 mg (45 159 mg PO QAM 06/01/20 11/29/22 mg iron) tablet,extended release (iron ER) golimumab 50 mg/0.5 mL 50 mg subcut MONTHLY 01/19/21 11/29/22 subcutaneous pen injector (Simponi) prednisone 20 mg tablet 20 mg PO DAILY PRN for flare up 11/23/21 11/29/22 hydroxychloroquine 200 mg tablet 400 mg PO QPM 03/24/22 11/29/22 (Plaquenil) potassium chloride 20 mEq 20 meq PO QAM 03/24/22 11/29/22 tablet,extended release amoxicillin 500 mg tablet 2,000 mg PO DIRECTED PRN 11/29/22 11/29/22 prophylaxis aspirin 81 mg tablet,delayed 81 mg PO QAM 11/29/22 11/29/22 release triamcinolone acetonide 0.1 % 1 applic topical BID PRN Skin 11/29/22 11/29/22 topical cream Irritation Previous Rx's Medication Instructions Recorded levothyroxine 175 mcg tablet 175 mcg PO QAM #90 tabs 12/14/21 atorvastatin 10 mg tablet 10 mg PO QPM #90 tabs 03/10/22 metformin 1,000 mg tablet 1,000 mg PO BID 90 days #180 tabs 08/03/22 omeprazole 40 mg capsule,delayed 40 mg PO QAM #90 caps 08/09/22 release hydrochlorothiazide 25 mg tablet 25 mg PO QAM #90 tabs 08/12/22 semaglutide 0.25 mg or 0.5 mg (2 0.5 mg (0.4 mL) subcut WK #1.5 mL 08/20/22 mg/1.5 mL) subcutaneous pen injector (Ozempic) lisinopril 10 mg tablet 10 mg PO QAM #90 tabs 09/09/22 famotidine 40 mg tablet 40 mg PO PM #90 tabs 09/13/22 celecoxib 200 mg capsule (Celebrex) 200 mg PO Q12H 90 days #180 caps 11/05/22 Results & Data (ED) Vital Signs Vital Signs - 24 hr 11/29/22 12:44 11/29/22 12:44 11/29/22 12:49 Temperature 37.1 C 37.1 C Temperature Source Oral Oral Pulse Rate 103 H 96 H Pulse Rate [Apical] 103 H Pulse Rhythm Regular Pulse Rhythm [Apical] Regular Pulse Strength Normal Pulse Strength [Apical] Respiratory Rate 18 18 Respiratory Effort / Characteristics Respiratory Depth Normal Respiratory Pattern Blood Pressure 166/80 H Blood Pressure [Right Arm] 166/80 H Blood Pressure Mean 108 Blood Pressure Mean [Right Arm] 108 Blood Pressure Position [Right Arm] Lying Pulse Oximetry 97 97 Oxygen Delivery Method Room Air Room Air Sepsis Recent Fever Within 48 Hours No Sepsis New/Unexplained Change in Mental Status No Sepsis Action Taken by Nursing No Action Required 11/29/22 16:30 11/29/22 16:00 11/29/22 15:30 Temperature Temperature Source Pulse Rate Pulse Rate [Apical] 96 H 93 H 95 H Pulse Rhythm Pulse Rhythm [Apical] Regular Regular Regular Pulse Strength Pulse Strength [Apical] Normal Normal Normal Respiratory Rate 20 18 20 Respiratory Effort / Characteristics Non-Labored Spontaneous Non-Labored Spontaneous Non-Labored Spontaneous Respiratory Depth Normal Normal Normal Respiratory Pattern Regular Regular Regular Blood Pressure Blood Pressure [Right Arm] 157/99 H 203/107 H 188/110 H Blood Pressure Mean Blood Pressure Mean [Right Arm] 118 139 136 Blood Pressure Position [Right Arm] Sitting Sitting Sitting Pulse Oximetry 95 93 Oxygen Delivery Method Room Air Sepsis Recent Fever Within 48 Hours Sepsis New/Unexplained Change in Mental Status Sepsis Action Taken by Nursing 11/29/22 15:19 11/29/22 17:07 11/29/22 18:31 Temperature Temperature Source Pulse Rate 98 H Pulse Rate [Apical] 99 H 98 H Pulse Rhythm Pulse Rhythm [Apical] Regular Regular Pulse Strength Pulse Strength [Apical] Normal Respiratory Rate 20 16 Respiratory Effort / Characteristics Non-Labored Spontaneous Respiratory Depth Normal Respiratory Pattern Regular Blood Pressure Blood Pressure [Right Arm] 154/112 H 157/99 H Blood Pressure Mean Blood Pressure Mean [Right Arm] 126 118 Blood Pressure Position [Right Arm] Sitting Pulse Oximetry 94 100 Oxygen Delivery Method Room Air Room Air Sepsis Recent Fever Within 48 Hours Sepsis New/Unexplained Change in Mental Status Sepsis Action Taken by [facility] Medications Current Medication List: was personally reviewed by me Laboratory Data Attestation: I reviewed the patient's lab results. 11/29/22 13:43 11/29/22 13:43 Lab Results 11/29/22 11/29/22 11/29/22 Range/Units 13:43 13:43 13:43 WBC 9.67 (4.8-10.8) K/ul RBC 3.70 L (4.20-5.40) M/uL Hgb 11.4 L (12.0-16.0) g/dl Hct 33.6 L (37.0-47.0) % MCV 90.8 (80.0-100.0) fL MCH 30.8 (25.0-34.0) pg MCHC 33.9 (32.0-36.0) g/dL RDW Std Deviation 40.8 (36.4-46.3) fL RDW Coeff of Jose R 12.3 (11.5-14.5) % Plt Count 179 (130-400) K/uL MPV 11.0 (9.4-12.4) fL Immature Gran % (Auto) 0.3 % Neut % (Auto) 69.4 % Lymph % (Auto) 18.8 % C[place]shaw % (Auto) 8.7 % Eos % (Auto) 2.0 % Baso % (Auto) 0.8 % Neut # (Auto) 6.71 H (1.40-6.50) K/uL Lymph # (Auto) 1.82 (1.2-3.4) K/uL [place]shaw # (Auto) 0.84 H (0.11-0.59) K/uL Eos # (Auto) 0.19 (0-0.50) K/uL Baso # (Auto) 0.08 (0-0.2) K/uL Immature Gran # (Auto) 0.03 (0.01-0.20) K/uL PT 11.9 (9.0-12.0) Seconds INR 1.1 (0.9-1.1) APTT 27.0 (21.0-31.0) Seconds PTT Ratio 1.0 Sodium 139 (136-145) mmol/L Potassium 3.6 (3.5-5.1) mmol/L Chloride 106 (98-107) mmol/L Carbon Dioxide 23 (21-32) mmol/L Anion Gap 10 (3-11) BUN 14 (6-23) mg/dl Creatinine 0.87 (0.6-1.2) mg/dl Est Cr Clr Drug Dosing 87.6 ml/min Est GFR ( Amer) 82.2 ml/min Est GFR (Non-Af Amer) 70.9 ml/min BUN/Creatinine Ratio 16.1 (10-20) Glucose 113 H (70-99(Fasting)) mg/dl Calcium 9.5 (8.5-10.1) mg/dl Total Bilirubin 0.6 (0.2-1.0) mg/dl AST 26 (13-39) U/L ALT 16 (7-52) U/L Alkaline Phosphatase 46 (34-104) U/L Total Protein 7.3 (6.0-8.3) gm/dl Albumin 3.9 (3.4-5.0) gm/dl Globulin 3.4 (2.5-4.0) gm/dl Albumin/Globulin Ratio 1.1 (0.9-2) Urine Color Urine Appearance (Clear) Urine pH (4.5-7.5) Ur Specific [place] (1.000-1.030) Urine Protein (Negative) Urine Glucose (UA) (Negative) Urine Ketones (Negative) Urine Blood (Negative) Urine Nitrite (Negative) Urine Bilirubin (Negative) Urine Urobilinogen (Negative) Ur Leukocyte Esterase (Negative) SARS-CoV-2, RNA, NAAT (NEGATIVE) Blood Type Antibody Screen 11/29/22 11/29/22 11/29/22 Range/Units 17:03 17:58 Unknown WBC (4.8-10.8) K/ul RBC (4.20-5.40) M/uL Hgb (12.0-16.0) g/dl Hct (37.0-47.0) % MCV (80.0-100.0) fL MCH (25.0-34.0) pg MCHC (32.0-36.0) g/dL RDW Std Deviation (36.4-46.3) fL RDW Coeff of Jose R (11.5-14.5) % Plt Count (130-400) K/uL MPV (9.4-12.4) fL Immature Gran % (Auto) % Neut % (Auto) % Lymph % (Auto) % [place] % (Auto) % Eos % (Auto) % Baso % (Auto) % Neut # (Auto) (1.40-6.50) K/uL Lymph # (Auto) (1.2-3.4) K/uL [place] # (Auto) (0.11-0.59) K/uL Eos # (Auto) (0-0.50) K/uL Baso # (Auto) (0-0.2) K/uL Immature Gran # (Auto) (0.01-0.20) K/uL PT (9.0-12.0) Seconds INR (0.9-1.1) APTT (21.0-31.0) Seconds PTT Ratio Sodium (136-145) mmol/L Potassium (3.5-5.1) mmol/L Chloride (98-107) mmol/L Carbon Dioxide (21-32) mmol/L Anion Gap (3-11) BUN (6-23) mg/dl Creatinine (0.6-1.2) mg/dl Est Cr Clr Drug Dosing ml/min Est GFR ( Amer) ml/min Est GFR (Non-Af Amer) ml/min BUN/Creatinine Ratio (10-20) Glucose (70-99(Fasting)) mg/dl Calcium (8.5-10.1) mg/dl Total Bilirubin (0.2-1.0) mg/dl AST (13-39) U/L ALT (7-52) U/L Alkaline Phosphatase (34-104) U/L Total Protein (6.0-8.3) gm/dl Albumin (3.4-5.0) gm/dl Globulin (2.5-4.0) gm/dl Albumin/Globulin Ratio (0.9-2) Urine Color Yellow Urine Appearance Clear (Clear) Urine pH 5.0 (4.5-7.5) Ur Specific [place] 1.021 (1.000-1.030) Urine Protein Negative (Negative) Urine Glucose (UA) Negative (Negative) Urine Ketones Trace H (Negative) Urine Blood Negative (Negative) Urine Nitrite Negative (Negative) Urine Bilirubin Negative (Negative) Urine Urobilinogen Negative (Negative) Ur Leukocyte Esterase Negative (Negative) SARS-CoV-2, RNA, NAAT NEGATIVE (NEGATIVE) Blood Type A Positive Antibody Screen NEGATIVE Administered Medications Acetaminophen (Acetaminophen 325 Mg Tab) 650 mg PO Q6H [facility] Stop: 12/29/22 16:59 Last Admin: 11/29/22 17:35 Dose: 650 mg Documented By: NRB Discontinued Medications Baclofen (Baclofen 10 Mg Tab) 10 mg PO TID PHYLICIA Stop: 12/29/22 16:59 Last Admin: 11/29/22 19:22 Dose: Not Given Documented By: THIAGO Baclofen (Baclofen 10 Mg Tab) 10 mg PO ONCE ONE Stop: 11/29/22 17:17 Last Admin: 11/29/22 17:35 Dose: 10 mg Documented By: NRB Fentanyl Citrate (Fentanyl Citrate 100 Mcg/2 Ml Vial) 50 mcg IV Q4H PRN PRN Reason: Pain Stop: 11/29/22 15:16 Last Admin: 11/29/22 13:26 Dose: 50 mcg Documented By: NRB Fentanyl Citrate (Fentanyl Citrate 100 Mcg/2 Ml Vial) 75 mcg IV NOW STA Stop: 11/29/22 15:17 Last Admin: 11/29/22 15:27 Dose: 75 mcg Documented By: NRB Morphine Sulfate (Morphine Sulfate 4 Mg/Ml 1 Ml Carp\Vial) 4 mg IV NOW STA Stop: 11/29/22 18:24 Last Admin: 11/29/22 18:38 Dose: 4 mg Documented By: NRB Ondansetron HCl (Ondansetron Inj 2 Mg/Ml 2 Ml Vial) 4 mg IV NOW STA Stop: 11/29/22 16:39 Last Admin: 11/29/22 16:46 Dose: 4 mg Documented By: NRB Imaging Data Radiologist's Impression: Hip/Pelvis X-Ray 11/29/22 13:02 SINGLE VIEW PELVIS; 2 VIEWS LEFT HIP CLINICAL HISTORY: Fall. Left leg injury. FINDINGS: AP view of the pelvis with AP and crosstable lateral views of the left hip are compared to study dated 04/26/2022. The skeletal structures are osteopenic. There is an impacted and comminuted intertrochanter ic/subtrochanteric fracture of the left femur with numerous displaced fragments. There is medial displacement of the lesser trochanter. There is angulation and mild overriding of fragments. Overlying soft tissue edema is noted. No additional fracture is seen involving the bony pelvis or right hip. A right hip arthroplasty is in near anatomic alignment. No prior prosthetic lucency is seen. Mild degenerative change is noted in the left hip. Degenerative sclerosis is seen in the sacroiliac joints. Spondylosis and fusion hardware is noted in the lower lumbar spine. Phleboliths are noted in the pelvis. IMPRESSION: 1. Comminuted, angulated, and displaced intertrochanteric/subtrochanteric fracture of the proximal femur. 2. No additional acute fracture is seen involving the right hip or the bony pelvis. Electronically signed by: Alessio Ahmadi M.D. 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 FINDINGS: The lungs are clear. Cardiac silhouette is normal in size. No pleural effusions. No pneumothorax. Mild elevation of the right hemidiaphragm, unchanged. Prior cholecystectomy. IMPRESSION: No significant change compared to the prior study. No acute process. ACT 112: Negative or not required by law. Electronically signed by: Leonard Hamilton M.D. 11/29/2022 3:04 PM Discharge Plan Visit Data Chief Complaint: Hip Pain Stated Complaint: fall- hip pain ED Provider: Ronnie Truong Discharge Problem: Closed hip fracture, Fall Patient Disposition: Admitted As Inpatient Forms Stand Alone Forms: [facility] Prescriptions Prescriptions: No Action levothyroxine 175 mcg tablet 175 mcg PO QAM Qty: 90 3RF atorvastatin 10 mg tablet 10 mg PO QPM Qty: 90 3RF metformin 1,000 mg tablet 1,000 mg PO BID 90 Days Qty: 180 1RF omeprazole 40 mg capsule,delayed release(DR/EC) 40 mg PO QAM Qty: 90 1RF hydrochlorothiazide 25 mg tablet 25 mg PO QAM Qty: 90 1RF Ozempic 0.25 mg or 0.5 mg(2 mg/1.5 mL) pen injector 0.5 mg subcut WK Qty: 1.5 3RF Rx Instructions: TAKES ON WEDNESDAYS lisinopril 10 mg tablet 10 mg PO QAM Qty: 90 3RF Rx Instructions: TAKE 1 TABLET DAILY famotidine 40 mg tablet 40 mg PO PM Qty: 90 1RF celecoxib [Celebrex] 200 mg capsule 200 mg PO Q12H 90 Days Qty: 180 3RF Simponi 50 mg/0.5 mL pen injector 50 mg subcut MONTHLY Rx Instructions: TAKES ON THE OF THE MONTH prednisone 20 mg tablet 20 mg PO DAILY PRN (Reason: for flare up ) Rx Instructions: patient take 20mg x1 week then 10mg x1 calcium carb and citrate-vitD3 600 mg calcium- 500 unit Tablet Extended Release 1 tab PO BID magnesium 250 mg Tablet 250 mg PO QAM cholecalciferol (vitamin D3) [Vitamin D3] 2,000 unit Tablet 2,000 unit PO QAM omega 5-ebl-ejh-fish oil [Fish Oil] 1,000 mg (120 mg-180 mg) Capsule 1,000 mg PO BID iron 159 mg (45 mg iron) Tablet Extended Release 159 mg PO QAM hydroxychloroquine [Plaquenil] 200 mg Tablet 400 mg PO QPM potassium chloride 20 mEq tablet extended release 20 meq PO QAM aspirin 81 mg tablet,delayed release (DR/EC) 81 mg PO QAM triamcinolone acetonide 0.1 % cream 1 applic topical BID PRN (Reason: Skin Irritation) Rx Instructions: Use for no longer than 2 wks. amoxicillin 500 mg tablet 2,000 mg PO DIRECTED PRN (Reason: prophylaxis) Rx Instructions: ONE HOUR PRIOR TO DENTAL PROCEDURE Referrals Referrals: Lubna Barker MD [Primary Care Provider] -
[2022-11-29] MEDS ORDERED: fentaNYL citrate 100 MCG/2 ML VIAL IV PRN (13:02)
[2022-11-29 14:02] LABS: Basophils # (auto) 0.08 K/uL (0-0.2); Basophils % (auto) 0.8 %; Eosinophils # (auto) 0.19 K/uL (0-0.50); Hematocrit (blood only) 33.6 % (37.0-47.0); Hemoglobin 11.4 g/dl (12.0-16.0); Immature Granulocytes # (auto) 0.03 K/uL (0.01-0.20); Immature Granulocytes % (auto) 0.3 %; Lymphocytes # (auto) 1.82 K/uL (1.2-3.4); Lymphocytes % (auto) 18.8 %; Mean Corpuscular Hemoglobin 30.8 pg (25.0-34.0); Mean Corpuscular Hgb Conc 33.9 g/dL (32.0-36.0); Mean Corpuscular Volume 90.8 fL (80.0-100.0); Monocytes # (auto) 0.84 K/uL (0.11-0.59); Monocytes % (auto) 8.7 %; Neutrophils # (auto) 6.71 K/uL (1.40-6.50); Neutrophils % (auto) 69.4 %; Platelet Count 179 K/uL (130-400); RDW Coefficient of Variation 12.3 % (11.5-14.5); RDW Standard Deviation 40.8 fL (36.4-46.3); White Blood Count 9.67 K/ul (4.8-10.8)
[2022-11-29 14:19] LABS: INR 1.1 (0.9-1.1); Prothrombin Time 11.9 Seconds (9.0-12.0)
--- NOTE | 2022-11-29 15:04 | XRay Report ---
SINGLE VIEW PELVIS; 2 VIEWS LEFT HIP CLINICAL HISTORY: Fall. Left leg injury. FINDINGS: AP view of the pelvis with AP and crosstable lateral views of the left hip are compared to study dated 04/26/2022. The skeletal structures are osteopenic. There is an impacted and comminuted in tertrochanteric/subtrochanteric fracture of the left femur with numerous displaced fragments. There i s medial displacement of the lesser trochanter. There is angulation and mild overriding of fragments. Overlying soft tissue edema is noted. No additional fracture is seen involving the bony pelvis or ri ght hip. A right hip arthroplasty is in near anatomic alignment. No prior prosthetic lucency is seen. Mild degenerative change is noted in the left hip. Degenerative sclerosis is seen in the sacroiliac joints. Spondylosis and fusion hardware is noted in the lower lumbar spine. Phleboliths are noted in the pelvis. IMPRESSION: 1. Comminuted, angulated, and displaced intertrochanteric/subtrochanteric fracture of the proximal fe mur. 2. No additional acute fracture is seen involving the right hip or the bony pelvis. Electronically signed by: Alessio Ahmadi M.D. 11/29/2022 3:03 PM
--- NOTE | 2022-11-29 15:05 | XRay Report ---
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 FINDINGS: The lungs are clear. Cardiac silhouette is normal in size. No pleural effusions. No pneumot horax. Mild elevation of the right hemidiaphragm, unchanged. Prior cholecystectomy. IMPRESSION: No significant change compared to the prior study. No acute process. ACT 112: Negative or not required by law. Electronically signed by: Leonard Hamilton M.D. 11/29/2022 3:04 PM
[2022-11-29 15:14] LABS: Albumin Globulin Ratio 1.1 (0.9-2); Albumin Level 3.9 gm/dl (3.4-5.0); BUN Creatinine Ratio 16.1 (10-20); Bilirubin,Total 0.6 mg/dl (0.2-1.0); Calcium 9.5 mg/dl (8.5-10.1); Creatinine Clr Calc Pharmacy 87.6 ml/min; Est GFR (African American) 82.2 ml/min; Est GFR (Non-African American) 70.9 ml/min; Globulin 3.4 gm/dl (2.5-4.0); Potassium 3.6 mmol/L (3.5-5.1); Total Protein 7.3 gm/dl (6.0-8.3)
[2022-11-29] MEDS ORDERED: fentaNYL citrate 100 MCG/2 ML VIAL IV STA (15:16)
--- NOTE | 2022-11-29 15:52 | Orthopedic Consultation ---
Date of Service November 29, 2022 Assessment & Plan (1) Intertrochanteric fracture of left hip: We discussed the diagnosis and treatment options with her at bedside. I recommended intramedullary nail fixation of the left hip. We discussed the risk, benefits, and alternatives to procedure and she is elected to proceed. She would be admitted to the hospitalist service. She is currently not on any anticoagulants. She will be n.p.o. past midnight tonight. Myself, or one of my partners, plan to perform the surgery tomorrow. History of Present Illness Reason for Consultation: Intertrochanteric fracture of the left hip. Requesting Physician: . Lucy is a pleasant 62-year-old female who recently had her right hip replaced. She has been doing very well. She is a community ambulator without assistance. Earlier today she was ambulating in her home when she slipped and twisted her left leg. She felt a snap in her left hip and fell. She had immediate left hip pain. She was brought to the emergency room by EMS. Radiographs demonstrated an intertrochanteric/subtrochanteric fracture of the left proximal femur. Orthopedics was consulted to evaluate and treat.. Allergies Allergy/AdvReac Type Severity Reaction Status Date / Time levofloxacin Allergy Mild RASH Verified 08/31/22 15:50 codeine AdvReac Mild N & V Verified 08/31/22 15:50 sulfamethoxazole AdvReac Mild mental Verified 08/31/22 15:50 [From Bactrim] changes tocilizumab [From Actemra] AdvReac Mild Hives Verified 08/31/22 15:50 trimethoprim [From Bactrim] AdvReac Mild mental Verified 08/31/22 15:50 changes Home Medications Medication Instructions Recorded Confirmed Type calcium carb,cit ER 600 mg-vit D3 1 tab PO BID 07/27/18 08/31/22 History 12.5 mcg (500 unit) tablet,ext.rel cholecalciferol (vitamin D3) 50 2,000 unit PO QAM 07/27/18 08/31/22 History mcg (2,000 unit) tablet (Vitamin D3) magnesium 250 mg tablet 250 mg PO QAM 07/27/18 08/31/22 History omega 3-jvq-zkn-fish oil 1,000 mg 1,000 mg PO BID 07/27/18 08/31/22 History (120 mg-180 mg) capsule (Fish Oil) ferrous sulfate, dried 159 mg (45 159 mg PO QAM 06/01/20 08/31/22 History mg iron) tablet,extended release (iron ER) golimumab 50 mg/0.5 mL 50 mg subcut MONTHLY 01/19/21 08/31/22 History subcutaneous pen injector (Simponi) prednisone 20 mg tablet 20 mg PO DAILY PRN for flare up 11/23/21 08/31/22 History levothyroxine 175 mcg tablet 175 mcg PO QAM #90 tabs 12/14/21 08/31/22 Rx atorvastatin 10 mg tablet 10 mg PO QPM #90 tabs 03/10/22 08/31/22 Rx hydroxychloroquine 200 mg tablet 400 mg PO QPM 03/24/22 08/31/22 History (Plaquenil) potassium chloride 20 mEq 20 meq PO QAM 03/24/22 08/31/22 History tablet,extended release aspirin 81 mg tablet,delayed 81 mg PO BID 42 days #0 tabs 04/27/22 08/31/22 Rx release amoxicillin 500 mg tablet 2,000 mg PO ONCE PRN prophylaxis 06/28/22 08/31/22 Rx #4 tabs metformin 1,000 mg tablet 1,000 mg PO BID 90 days #180 tabs 08/03/22 08/31/22 Rx omeprazole 40 mg capsule,delayed 40 mg PO QAM #90 caps 08/09/22 08/31/22 Rx release hydrochlorothiazide 25 mg tablet 25 mg PO QAM #90 tabs 08/12/22 08/31/22 Rx semaglutide 0.25 mg or 0.5 mg (2 0.5 mg (0.4 mL) subcut WK #1.5 mL 08/20/22 08/31/22 Rx mg/1.5 mL) subcutaneous pen injector (Ozempic) triamcinolone acetonide 0.1 % 1 applic topical BID #15 grams 08/31/22 08/31/22 Rx topical cream lisinopril 10 mg tablet 10 mg PO QAM #90 tabs 09/09/22 Rx famotidine 40 mg tablet 40 mg PO PM #90 tabs 09/13/22 Rx celecoxib 200 mg capsule (Celebrex) 200 mg PO Q12H 90 days #180 caps 11/05/22 Rx Past Med/Surg History Medical History Anemia Hx - taking iron Depression situational, therapy. no medications. Diabetes mellitus, type 2 NIDDM Glucose stable per patient GERD (gastroesophageal reflux disease) Well controlled and stable History of COVID-19 08/2021 - home test - headache - no hospitalization - resolved Hyperlipidemia Hypertension Hypothyroidism Lumbar facet joint syndrome Nausea and vomiting after administration of anesthetic agent Rheumatoid arthritis Follows Dr. Juan in [place]- stable Spinal stenosis Surgical History History of cataract surgery bilateral History of cholecystectomy History of colonoscopy History of total abdominal hysterectomy (~2010) Hx of hand surgery S/P LASIK surgery of both eyes S/P lumbar fusion Total knee replacement status bilateral Family History Mother Stroke Diabetes Hypertension Liver cancer Aunt Stroke Colorectal cancer Father Cognitive changes Hypertension Brother No known health problems Other Family history non-contributory Denies family history of Colon cancer Ovarian cancer Prostate cancer Myocardial infarction Breast cancer Social History Smoking Status: Former smoker Age Started Using Tobacco: 17; Age Quit Using Tobacco: 46; packs per day: 1; Second Hand Exposure: No; Hx Alcohol Use: Yes Alcohol type: beer, wine and hard liquor Alcohol Intake Frequency: 2-3 x/Week Hx Substance Use: No Preferred Language: Bengali Communication Ability: Effective Visual Impairment: No Limitations Hearing Ability: Normal Brand Strategy Manager Required: No Beliefs That Will Affect Care: None marital status: Life Partner Current Living Situation: Significant Other current occupational status: employed 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 Physical Exam On physical examination of left hip, her left leg is shortened and actually rotated. She has significant pain with logroll of the left hip. All of her pain is located at the fracture site.. Constitutional WD/WN, vitals as above Eyes PERRL, conjunctivae normal, anicteric sclerae ENMT external ear and nose normal, oropharynx normal Neck trachea midline, no thyromegaly Respiratory normal respiratory effort, lungs clear to auscultation Cardiovascular RRR, no murmur, no edema Gastrointestinal (Abdomen) normal bowel sounds, soft, nontender, no hepatosplenomegaly Skin no rashes, warm and dry Psychiatric A+Ox3, euthymic affect Results & Data Results & Data Laboratory Results . Diagnostic Findings X-rays of the left hip show an intertrochanteric fracture with some subtrochanteric extension. There is significant varus deformity.. PG Care Time/CCT Total # of Minutes Spent Total Time Spent with Patient: Total time spent is greater than 50% in coordination of care (as documented) at patient's floor/unit and/or counseling patient: Coding Level of Care Code INP/OBS CONSULT LVL 4, 60 MIN (57 - DECISION FOR SURGERY) Diagnoses Intertrochanteric fracture of left hip S72.142A
[2022-11-29] MEDS ORDERED: ONDANSETRON INJ 2 MG/ML 2 ML VIAL IV STA (16:38)
--- NOTE | 2022-11-29 16:46 | History & Physical Report ---
Date of Service November 29, 2022 Assessment & Plan (1) Intertrochanteric fracture of left hip: Plan: -Admit to med/surge -The patient is currently afebrile, hemodynamically stable, and stable on RA -The patient sustained a mechanical fall from standing this am, now with a Comminuted, angulated, and displaced intertrochanteric/subtrochanteric fracture of the proximal left femur. -No other acute trauma noted -Ortho was evaluated and will be taking her to the OR tomorrow -The patient is of appropriate risk from a cardiovascular standpoint given her pain and dysfunction, and is stable for her procedure tomorrow -Will hold her Aspirin for now to avoid perioperative hemorrhage for now -Pain control with the following: >650 mg PO tylenol q6h >10 mg PO baclofen TID >Oxycodone 5 mg PO IR q4h prn pain 4,5,6+ >Ice and lidocaine patch to the affected area -BL SCDs for DVT PPX for now -AM CBC, BMP, MAG PT/INR (2) Hypothyroidism: Plan: -Continue levothyroxine (3) Asthma: Plan: -Stable on RA -Start pulm hygiene and prn albuterol (4) GERD (gastroesophageal reflux disease): Plan: -Continue famotidine (5) Diabetes: Plan: -Hold metformin and semaglutide -Will monitor BSG ACHS, goal is 110-140 -Will start with 5 units lantus BID, correction factor of 40 and carb ratio of 15 -Adjust regimen as needed (6) Hypertension: Plan: -Will continue hydrochlorothiazide, mag, and potassium chloride -Will hold home Lisinopril for now (7) Hyperlipidemia: Plan: -Continue atorvastatin (8) Rheumatoid arthritis: Plan: -Patient currently on Hydroxychloroquine, will continue her 400 mg PO Qpm -Only takes prednisone for flares and not currently in a flare, continue to hold Plan The patient was discussed with Dr. Maher at the time of the admission History of Present Illness Chief Complaint: Fall, hip pain Primary Care Provider: Lubna Barker MD Lucy is a 62 year old female with a PMH significant for DM II, hypothyroidism, GERD, HTN, hyperlipidemia, asthma, and obesity who presented to the [facility] ED due to a fall and hip pain. In the ED the patient was found to be afebrile hemodynamically stable, and stable on RA. Labs were remarkable for a CBC with WBC WNL, stable Hgb and platelets, CMP WNL. Chest xray was read as "No significant change compared to the prior study. No acute process.". Xrays of the left hip/pelvis was read as "1. Comminuted, angulated, and displaced intertrochanteric/subtrochanteric fracture of the proximal femur. 2. No additional acute fracture is seen involving the right hip or the bony pelvis". Prior to admission the patient was given 125 total mcg of fentanyl and 4 mg IV zofran. At the time of the exam the patient was lying in bed in no acute distress with her significant other sitting bedside. She states that she was in her normal state of health this am and was walking around 11:30 am when she tripped and fell to the ground. She denies any lightheadedness, dizziness, chest pain, SOB, palpitation, or seizure-like activity before or after her fall. She fell on her left side and denies hitting her head or losing consciousness. Her left hip pain is currently a 5/10 after receiving the fentanyl by the ED but she describes her pain currently as muscle spasms in the left hip. She denies current fever, chills, changes in vision, hearing, taste, and smell, chest pain, SOB, cough, abdominal pain, nausea, vomiting, diarrhea, dysuria, hematuria, lower extremity swelling, head, neck, and back pain. Please refer to Dr. Maher's attestation for any changes to the treatment plan Allergies Allergy/AdvReac Type Severity Reaction Status Date / Time tocilizumab [From Actemra] Allergy Intermediate Hives Verified 11/29/22 16:29 levofloxacin Allergy Mild RASH Verified 11/29/22 16:29 codeine AdvReac Intermediate N & V Verified 11/29/22 16:29 sulfamethoxazole AdvReac Intermediate mental Verified 11/29/22 16:29 [From Bactrim] changes trimethoprim [From Bactrim] AdvReac Intermediate mental Verified 11/29/22 16:29 changes Home Medications Medication Instructions Recorded Confirmed Type calcium carb,cit ER 600 mg-vit D3 1 tab PO BID 07/27/18 11/29/22 History 12.5 mcg (500 unit) tablet,ext.rel cholecalciferol (vitamin D3) 50 2,000 unit PO QAM 07/27/18 11/29/22 History mcg (2,000 unit) tablet (Vitamin D3) magnesium 250 mg tablet 250 mg PO QAM 07/27/18 11/29/22 History omega 7-rum-yfc-fish oil 1,000 mg 1,000 mg PO BID 07/27/18 11/29/22 History (120 mg-180 mg) capsule (Fish Oil) ferrous sulfate, dried 159 mg (45 159 mg PO QAM 06/01/20 11/29/22 History mg iron) tablet,extended release (iron ER) golimumab 50 mg/0.5 mL 50 mg subcut MONTHLY 01/19/21 11/29/22 History subcutaneous pen injector (Simponi) prednisone 20 mg tablet 20 mg PO DAILY PRN for flare up 11/23/21 11/29/22 Hist ory levothyroxine 175 mcg tablet 175 mcg PO QAM #90 tabs 12/14/21 11/29/22 Rx atorvastatin 10 mg tablet 10 mg PO QPM #90 tabs 03/10/22 11/29/22 Rx hydroxychloroquine 200 mg tablet 400 mg PO QPM 03/24/22 11/29/22 History (Plaquenil) potassium chloride 20 mEq 20 meq PO QAM 03/24/22 11/29/22 History tablet,extended release metformin 1,000 mg tablet 1,000 mg PO BID 90 days #180 tabs 08/03/22 11/29/22 Rx omeprazole 40 mg capsule,delayed 40 mg PO QAM #90 caps 08/09/22 11/29/22 Rx release hydrochlorothiazide 25 mg tablet 25 mg PO QAM #90 tabs 08/12/22 11/29/22 Rx semaglutide 0.25 mg or 0.5 mg (2 0.5 mg (0.4 mL) subcut WK #1.5 mL 08/20/22 11/29/22 Rx mg/1.5 mL) subcutaneous pen injector (Ozempic) lisinopril 10 mg tablet 10 mg PO QAM #90 tabs 09/09/22 11/29/22 Rx famotidine 40 mg tablet 40 mg PO PM #90 tabs 09/13/22 11/29/22 Rx celecoxib 200 mg capsule (Celebrex) 200 mg PO Q12H 90 days #180 caps 11/05/22 11/29/22 Rx amoxicillin 500 mg tablet 2,000 mg PO DIRECTED PRN 11/29/22 11/29/22 History prophylaxis aspirin 81 mg tablet,delayed 81 mg PO QAM 11/29/22 11/29/22 History release triamcinolone acetonide 0.1 % 1 applic topical BID PRN Skin 11/29/22 11/29/22 History topical cream Irritation Past Med/Surg History Medical History Anemia Hx - taking iron Depression situational, therapy. no medications. Diabetes mellitus, type 2 NIDDM Glucose stable per patient GERD (gastroesophageal reflux disease) Well controlled and stable History of COVID-19 08/2021 - home test - headache - no hospitalization - resolved Hyperlipidemia Hypertension Hypothyroidism Lumbar facet joint syndrome Nausea and vomiting after administration of anesthetic agent Rheumatoid arthritis Follows Dr. Juan in [place]- stable Spinal stenosis Surgical History History of cataract surgery bilateral History of cholecystectomy History of colonoscopy History of total abdominal hysterectomy (~2010) Hx of hand surgery S/P LASIK surgery of both eyes S/P lumbar fusion Total knee replacement status bilateral Family History Mother Stroke Diabetes Hypertension Liver cancer Aunt Stroke Colorectal cancer Father Cognitive changes Hypertension Brother No known health problems Other Family history non-contributory Denies family history of Colon cancer Ovarian cancer Prostate cancer Myocardial infarction Breast cancer Social History Smoking Status: Former smoker Age Started Using Tobacco: 17; Age Quit Using Tobacco: 46; packs per day: 1; Second Hand Exposure: No; Hx Alcohol Use: Yes Alcohol type: beer, wine and hard liquor Alcohol Intake Frequency: 2-3 x/Week Hx Substance Use: No Preferred Language: Mexican Communication Ability: Effective Visual Impairment: No Limitations Hearing Ability: Normal Assistant Offset Press Operator Required: No Beliefs That Will Affect Care: None marital status: Life Partner Current Living Situation: Significant Other current occupational status: employed 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 Feels Safe at Home: Yes Childhood Exposure to Second-Hand Smoke: Yes Diet Comment: regular caffeine: Yes during the past year weight has: remained stable Dental Care, Regularly: Yes Physical Activity Frequency: Does not Exercise Seatbelt Use: always Sunscreen Use: Yes Do you think of yourself as: lesbian/ge/homosexual Assistive Devices: None Review of Systems Review of Systems: Denies current fever, chills, headache, changes in vision, hearing, taste, and smell, chest pain, SOB, cough, abdominal pain, nausea, vomiting, diarrhea, hematemesis, melena, dysuria, hematuria All systems have been reviewed and are otherwise negative. Physical Exam Physical Exam: Physical Exam: General: In no acute distress, stated age, well-nourished, good hygiene HEENT: Normocephalic, atraumatic, no scleral icterus, pupils around round, symmetrical, and reactive to light, moist mucus membranes, trachea midline, no thyromegaly Chest/Pulm: No respiratory distress, symmetrical chest expansion, clear breath sounds throughout Cardiac: RRR, no murmurs noted Abdomen: Negative for ascites and bruising, normoactive bowel sounds, soft, non-tender to palpation throughout Musculoskeletal: Patient with a shortened and externally rotated left LE, ROM in the BL UEs and RLE are intact, patient with intact sensation and motor function of the BL LE's Extremities: Radial, dorsalis pedis, and posterior tibial pulses are intact and symmetrical, no edema noted in the BL LE's Skin: Warm, dry, no rashes , lesions, or scars noted Neuro: Alert and oriented to person, place, month, year, and president, no focal defects, CN II-XII tested and intact, no tremors noted Psych: No acute distress, calm and cooperative during the exam Results & Data Results & Data ([facility]) Vital Signs (Past 12 Hours) Vital Signs Temp Pulse Pulse Resp BP BP Pulse Ox 11/29/22 12:49 96 H 11/29/22 12:44 37.1 C 103 H 18 166/80 H 97 11/29/22 12:44 37.1 C 103 H 18 166/80 H 97 O2 Del Method 11/29/22 12:49 11/29/22 12:44 Room Air 11/29/22 12:44 Room Air Laboratory Results Abnormal lab results 11/29/22 11/29/22 Range/Units 13:43 13:43 RBC 3.70 L (4.20-5.40) M/uL Hgb 11.4 L (12.0-16.0) g/dl Hct 33.6 L (37.0-47.0) % Neut # (Auto) 6.71 H (1.40-6.50) K/uL [place] # (Auto) 0.84 H (0.11-0.59) K/uL Glucose 113 H (70-99(Fasting)) mg/dl Diagnostic Findings Hip/Pelvis X-Ray 11/29/22 13:02 SINGLE VIEW PELVIS; 2 VIEWS LEFT HIP CLINICAL HISTORY: Fall. Left leg injury. FINDINGS: AP view of the pelvis with AP and crosstable lateral views of the left hip are compared to study dated 04/26/2022. The skeletal structures are osteopenic. There is an impacted and comminuted intertrochanteric/subtrochanteric fracture of the left femur with numerous displaced fragments. There is medial displacement of the lesser trochanter. There is angulation and mild overriding of fragments. Overlying soft tissue edema is noted. No additional fracture is seen involving the bony pelvis or right hip. A right hip arthroplasty is in near anatomic alignment. No prior prosthetic lucency is seen. Mild degenerative change is noted in the left hip. Degenerative sclerosis is seen in the sacroiliac joints. Spondylosis and fusion hardware is noted in the lower lumbar spine. Phleboliths are noted in the pelvis. IMPRESSION: 1. Comminuted, angulated, and displaced intertrochanteric/subtrochanteric fracture of the proximal femur. 2. No additional acute fracture is seen involving the right hip or the bony pelvis. Electronically signed by: Alessio Ahmadi M.D. 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 FINDINGS: The lungs are clear. Cardiac silhouette is normal in size. No pleural effusions. No pneumothorax. Mild elevation of the right hemidiaphragm, unchanged. Prior cholecystectomy. IMPRESSION: No significant change compared to the prior study. No acute process. ACT 112: Negative or not required by law. Electronically signed by: Leonard Hamilton M.D. 11/29/2022 3:04 PM ECG Additional Comments: Normal sinus rhythm Prolonged QT Abnormal ECG When compared with ECG of 25-MAR-2022 09:21, Sinus rhythm has replaced Ectopic atrial rhythm Code Status & VTE Plan Code Status Full code VTE Prophylaxis Plan VTE Prophylaxis will be ordered: Yes Supervising Physician Co-Signing Physician Notes PA Supervision Note: I personally saw and examined the patient. I verified all robertson points and agree with BELINDA Brown with the following exceptions and/or additions: Subjective: 62-year-old female past medical history significant for DM 2, asthma, anemia, GERD presented to the ER after a fall without loss of consciousness or presyncopal sensation during which she fell onto her left side and had immediate left hip pain. Noted on imaging to have left hip fracture and Dr. Gil with orthopedic group is aware with plans for surgery tomorrow. Patient herself does not have any other complaints including no chest pain, shortness of breath, abdominal pain, nausea. She reports severe left hip pain. Physical exam: Vitals reviewed Gen: Alert and oriented, in pain from left hip fracture HEENT: anicteric sclerae, EOMI CV: RRR no murmurs Pulm: CTAB no wheezes or crackles Abd: +BS soft nontender Ext: no edema, 2+ DP pulses Skin: no rashes, warm/dry Neuro: No focal neurologic deficits, did not do full bilateral lower extremity exam due to pain, but patient can wiggle toes of both feet and has good sensation in bilateral lower extremities Labs, Rads, and ECG reviewed: Hemoglobin of 11.4(Close to baseline over the last 6 months), CMP normal, UA no evidence of infection, COVID-negative. X-ray suggests comminuted, angulated, displaced intertrochanteric fracture of the proximal left femur. Assessment and Plan: Intertrochanteric fracture of the left hip: Sustained fall from standing height and caused hip fracture, suspect possible osteoporosis given pathologic fracture. Will need follow-up with PCP regarding possible bisphosphonate therapy. For left hip surgery tomorrow by either Dr. Gil another provider in his group. Will need PT and OT following surgery. Morphine IV x1 given, with Tylenol/oxycodone/morphine as needed for pain with pain parameters. Daily monitoring of hemoglobin especially in the setting of acute fracture and surgery tomorrow. Diabetes: Patient is not on insulin in the outpatient setting, however will transition to basal bolus insulin while admitted with ultimate transition to her oral regimen on discharge. Hypothyroidism: Continue home levothyroxine Plan otherwise as stated above. PG Care Time/CCT Total # of Minutes Spent Total Time Spent with Patient: Total time spent is greater than 50% in coordination of care (as documented) at patient's floor/unit and/or counseling patient: Coding [place] [address] INT INP/OBS CARE 375MIN Patient Type Established Medical Decision Making High Complexity Diagnoses Intertrochanteric fracture of left hip S72.142A Hypothyroidism E03.9 Asthma J45.909 GERD (gastroesophageal reflux disease) K21.9 Diabetes E11.9 Diabetes mellitus complication status: with hyperglycemia Diabetes mellitus type: type 2 Hypertension I10 Hyperlipidemia E78.5 Rheumatoid arthritis M06.9 (5) Diabetes Diabetes mellitus complication status: with hyperglycemia Diabetes mellitus type: type 2
[2022-11-29] MEDS ORDERED: NALOXONE HCL 0.4 MG/1 ML VIAL/CARP IV PRN (16:48)
[2022-11-29] MEDS ORDERED: bisacodyL 10 MG SUPP PR PRN (16:48)
[2022-11-29] MEDS ORDERED: MAGNESIUM HYDROXIDE SUSP 30 ML UDC PO PRN (16:48)
[2022-11-29] MEDS ORDERED: CARBOHYDRATES FOR HYPOGLYCEMIA PO PRN (16:49)
[2022-11-29] MEDS ORDERED: GLUCOSE 10 TAB/TUBE PO PRN (16:49)
[2022-11-29] MEDS ORDERED: GLUCOSE 40% GEL 15 GM TUBE PO PRN (16:49)
[2022-11-29] MEDS ORDERED: GLUCAGON FOR INJ 1 MG VIAL SQ PRN (16:49)
[2022-11-29] MEDS ORDERED: DEXTROSE 50% 50 ML SYRINGE IV PRN (16:49)
[2022-11-29] MEDS ORDERED: BACLOFEN 10 MG TAB PO SCH (17:00)
[2022-11-29] MEDS ORDERED: BACLOFEN 10 MG TAB PO ONE (17:16)
[2022-11-29] MEDS ORDERED: ALBUTEROL 0.5% NEB SOLN 2.5 MG/0.5 ML VIAL NEB PRN (17:20)
--- NOTE | 2022-11-29 17:20 | Electrocardiogram Report ---
Test Reason : Blood Pressure : / mmHG Vent. Rate : 095 BPM Atrial Rate : 095 BPM P-R Int : 184 ms QRS Dur : 094 ms QT Int : 390 ms P-R-T Axes : 072 035 047 degrees QTc Int : 490 ms Normal sinus rhythm Prolonged QT possible old inferior VT Abnormal ECG When compared with ECG of 25-MAR-2022 09:21, Sinus rhythm has replaced Ectopic atrial rhythm Confirmed by Macario Sahu ([id number]) on 11/29/2022 5:20:12 PM Referred By: REFERRED SELF Confirmed By:Jason Sahu
[2022-11-29] MEDS: ACETAMINOPHEN 325 MG TAB PO SCH ×2 (17:35→22:17)
[2022-11-29] MEDS ORDERED: MoRPHine SULFATE 4 MG/ML 1 ML CARP\\VIAL IV STA (18:23)
[2022-11-29 18:24] LABS: Appearance Urine Clear (Clear); Bilirubin Urine Negative (Negative); Blood Urine Negative (Negative); Color Urine Yellow; Glucose Urine UA Negative (Negative); Ketones Urine Trace (Negative); Leukocyte Esterase Urine Negative (Negative); Nitrite Urine Negative (Negative); Protein Urine Negative (Negative); Specific Gravity Urine 1.021 (1.000-1.030); Urobilinogen Urine Negative (Negative)
[2022-11-29] MEDS ORDERED: fentaNYL citrate 100 MCG/2 ML VIAL ONE ×2 (20:20→20:24)
[2022-11-29] MEDS ORDERED: ACETAMINOPHEN 325 MG TAB PO PRN (20:43)
[2022-11-29] MEDS ORDERED: INSULIN ASPART PER UNIT SC SCH (21:00)
[2022-11-29] MEDS: LANTUS PER UNIT CHARGE SQ SCH (21:43)
[2022-11-29] MEDS: ATORVASTATIN 10 MG TAB PO SCH (21:44)
[2022-11-29] MEDS: FAMOTIDINE 40 MG TABLET PO SCH (21:44)
[2022-11-29] MEDS: BACLOFEN 10 MG TAB PO SCH (21:45)
[2022-11-29] MEDS: DOCUSATE SODIUM/SENNA 50/8.6MG TAB PO SCH (21:47)
[2022-11-29] MEDS ORDERED: PROCHLORPERAZINE MALEATE 5 MG TAB PO ONE (21:59)
[2022-11-29] MEDS: HYDROXYCHLOROQUINE SULFATE 200 MG TAB PO SCH (22:13)
[2022-11-29] MEDS: MoRPHine SULFATE 2 MG/ML CARP IV PRN (22:13)
[2022-11-29] MEDS ORDERED: MoRPHine SULFATE 2 MG/ML CARP IV ONE (23:54)
[2022-11-30] MEDS: MoRPHine SULFATE 2 MG/ML CARP IV PRN ×4 (03:17→20:30)
[2022-11-30] MEDS: ACETAMINOPHEN 325 MG TAB PO SCH ×2 (05:52→15:37)
[2022-11-30] MEDS: LEVOTHYROXINE SODIUM 175 MCG TABLET PO SCH (05:53)
[2022-11-30 06:59] LABS: Hematocrit (blood only) 30.7 % (37.0-47.0); Hemoglobin 10.4 g/dl (12.0-16.0); Mean Corpuscular Hemoglobin 30.8 pg (25.0-34.0); Mean Corpuscular Hgb Conc 33.9 g/dL (32.0-36.0); Mean Corpuscular Volume 90.8 fL (80.0-100.0); Mean Platelet Volume 11.1 fL (9.4-12.4); Platelet Count 169 K/uL (130-400); RDW Coefficient of Variation 12.5 % (11.5-14.5); RDW Standard Deviation 41.4 fL (36.4-46.3); Red Blood Count 3.38 M/uL (4.20-5.40); White Blood Count 7.11 K/ul (4.8-10.8)
[2022-11-30] MEDS ORDERED: Nursing to Pharmacy Communication SCH ×2 (07:00→17:00)
[2022-11-30 07:16] LABS: BUN Creatinine Ratio 14.3 (10-20); Calcium 9.2 mg/dl (8.5-10.1); Creatinine Clr Calc Pharmacy 83.8 ml/min; Est GFR (African American) 77.8 ml/min; Est GFR (Non-African American) 67.1 ml/min; Magnesium 1.5 mg/dl (1.7-2.4); Potassium 3.6 mmol/L (3.5-5.1)
--- NOTE | 2022-11-30 07:22 | Anesthesiology Consultation ---
Date of Service November 30, 2022 Assessment & Plan Chart Review Chart Review: rod placer initiated History Surgery Operation Date: 11/30/22 07:00 Proposed Procedures p Left IM Nail - Cole Jones MD Height/Weight Height: 5 ft 8 in Weight: 113.8 kg Allergies Allergy/AdvReac Type Severity Reaction Status Date / Time tocilizumab [From Actemra] Allergy Intermediate Hives Verified 11/29/22 16:29 levofloxacin Allergy Mild RASH Verified 11/29/22 16:29 codeine AdvReac Intermediate N & V Verified 11/29/22 16:29 sulfamethoxazole AdvReac Intermediate mental Verified 11/29/22 16:29 [From Bactrim] changes trimethoprim [From Bactrim] AdvReac Intermediate mental Verified 11/29/22 16:29 changes Medications Home Medications Medication Instructions Recorded Confirmed Last Taken calcium carb,cit ER 600 mg-vit D3 1 tab PO BID 07/27/18 11/29/22 11/29/22 08:00 12.5 mcg (500 unit) tablet,ext.rel cholecalciferol (vitamin D3) 50 2,000 unit PO QAM 07/27/18 11/29/22 11/29/22 mcg (2,000 unit) tablet (Vitamin D3) magnesium 250 mg tablet 250 mg PO QAM 07/27/18 11/29/22 11/29/22 omega 7-vge-uft-fish oil 1,000 mg 1,000 mg PO BID 07/27/18 11/29/22 11/29/22 08:00 (120 mg-180 mg) capsule (Fish Oil) ferrous sulfate, dried 159 mg (45 159 mg PO QAM 06/01/20 11/29/22 11/29/22 mg iron) tablet,extended release (iron ER) golimumab 50 mg/0.5 mL 50 mg subcut MONTHLY 01/19/21 11/29/22 11/24/22 subcutaneous pen injector (Simponi) prednisone 20 mg tablet 20 mg PO DAILY PRN for flare up 11/23/21 11/29/22 Unknown levothyroxine 175 mcg tablet 175 mcg PO QAM #90 tabs 12/14/21 11/29/22 11/29/22 atorvastatin 10 mg tablet 10 mg PO QPM #90 tabs 03/10/22 11/29/22 11/28/22 hydroxychloroquine 200 mg tablet 400 mg PO QPM 03/24/22 11/29/22 11/28/22 (Plaquenil) potassium chloride 20 mEq 20 meq PO QAM 03/24/22 11/29/22 11/29/22 tablet,extended release metformin 1,000 mg tablet 1,000 mg PO BID 90 days #180 tabs 08/03/22 11/29/22 11/29/22 08:00 omeprazole 40 mg capsule,delayed 40 mg PO QAM #90 caps 08/09/22 11/29/22 11/29/22 release hydrochlorothiazide 25 mg tablet 25 mg PO QAM #90 tabs 08/12/22 11/29/22 11/29/22 semaglutide 0.25 mg or 0.5 mg (2 0.5 mg (0.4 mL) subcut WK #1.5 mL 08/20/22 11/29/22 11/24/22 mg/1.5 mL) subcutaneous pen injector ([facility] [employer]) lisinopril 10 mg tablet 10 mg PO QAM #90 tabs 09/09/22 11/29/22 11/29/22 famotidine 40 mg tablet 40 mg PO PM #90 tabs 09/13/22 11/29/22 11/28/22 celecoxib 200 mg capsule (Celebrex) 200 mg PO Q12H 90 days #180 caps 11/05/22 11/29/22 11/29/22 08:00 amoxicillin 500 mg tablet 2,000 mg PO DIRECTED PRN 11/29/22 11/29/22 Unknown prophylaxis aspirin 81 mg tablet,delayed 81 mg PO QAM 11/29/22 11/29/22 11/29/22 release triamcinolone acetonide 0.1 % 1 applic topical BID PRN Skin 11/29/22 11/29/22 Unknown topical cream Irritation Active Medications Generic Name Dose Route Start Last Admin Trade Name Freq PRN Reason Stop Dose Admin Acetaminophen 650 mg 11/29/22 17:00 11/30/22 05:52 Acetaminophen 325 Mg Tab PO 12/29/22 16:59 650 mg Q6H PHYLICIA Administration Atorvastatin Calcium 10 mg 11/29/22 21:00 11/29/22 21:44 Atorvastatin 10 Mg Tab PO 12/29/22 20:59 10 mg QPM PHYLICIA Administration Baclofen 10 mg 11/29/22 21:00 11/29/22 21:45 Baclofen 10 Mg Tab PO 12/29/22 20:59 10 mg TID PHYLICIA Administration Famotidine 40 mg 11/29/22 21:00 11/29/22 21:44 Famotidine 40 Mg Tablet PO 12/29/22 20:59 40 mg PM PHYLICIA Administration Hydroxychloroquine Sulfate 400 mg 11/29/22 21:45 11/29/22 22:13 Hydroxychloroquine Sulfate 200 Mg Tab PO 12/29/22 21:44 400 mg QPM PHYLICIA Administration Insulin Glargine 5 units 11/29/22 21:00 11/29/22 21:43 Lantus Per Unit Charge SQ 12/29/22 20:59 5 units BID PHYLICIA Administration Levothyroxine Sodium 175 mcg 11/30/22 06:30 11/30/22 05:53 Levothyroxine Sodium 175 Mcg Tablet PO 12/30/22 06:29 175 mcg DAILYBB PHYLICIA Administration Miscellaneous 1 each 11/29/22 21:00 11/29/22 21:45 Remove Lidoderm Patch N/A 12/29/22 20:59 Not Given DAILY@2100 PHYLICIA Morphine Sulfate 2 mg 11/29/22 21:57 11/30/22 06:36 Morphine Sulfate 2 Mg/Ml Carp IV 12/13/22 21:56 2 mg Q3H PRN Administration Pain Senna/Docusate Sodium 2 tab 11/29/22 21:00 11/29/22 21:47 Docusate Sodium/Senna 50/8.6mg Tab PO 12/29/22 20:59 2 tab HS PHYLICIA Administration Past Medical History Medical History Anemia Hx - taking iron Depression situational, therapy. no medications. Diabetes mellitus, type 2 NIDDM Glucose stable per patient GERD (gastroesophageal reflux disease) Well controlled and stable History of COVID-19 08/2021 - home test - headache - no hospitalization - resolved Hyperlipidemia Hypertension Hypothyroidism Lumbar facet joint syndrome Nausea and vomiting after administration of anesthetic agent Rheumatoid arthritis Follows Dr. Juan in [place]- stable Spinal stenosis Past Family History Family History Mother Stroke Diabetes Hypertension Liver cancer Aunt Stroke Colorectal cancer Father Cognitive changes Hypertension Brother No known health problems Other Family history non-contributory Denies family history of Colon cancer Ovarian cancer Prostate cancer Myocardial infarction Breast cancer Past Surgical History Surgical History History of cataract surgery bilateral History of cholecystectomy History of colonoscopy History of total abdominal hysterectomy (~2010) Hx of hand surgery S/P LASIK surgery of both eyes S/P lumbar fusion Total knee replacement status bilateral Social History Smoking Status: Never smoker tobacco type: cigarettes Hx Alcohol Use: Yes Alcohol type: hard liquor alcohol intake frequency: a few times a week Hx Substance Use: No substance use type: does not use Physical Exam Vital Signs Last Vital Signs Temp 98.8 F 11/29/22 20:48 Pulse 93 H 11/29/22 20:48 Resp 20 11/29/22 20:48 BP 137/83 11/29/22 20:48 Pulse Ox 94 11/29/22 20:48 O2 Del Method Room Air 11/29/22 20:48 Testing Laboratory Results 11/30/22 06:22 11/30/22 06:22 PT 11.9 Seconds (9.0-12.0) 11/29/22 13:43 INR 1.1 (0.9-1.1) 11/29/22 13:43 APTT 27.0 Seconds (21.0-31.0) 11/29/22 13:43 Urine Color Yellow 11/29/22 17:58 Urine Appearance Clear (Clear) 11/29/22 17:58 Urine pH 5.0 (4.5-7.5) 11/29/22 17:58 Ur Specific [place] 1.021 (1.000-1.030) 11/29/22 17:58 Urine Protein Negative (Negative) 11/29/22 17:58 Urine Glucose (UA) Negative (Negative) 11/29/22 17:58 Urine Ketones Trace (Negative) H 11/29/22 17:58 Urine Nitrite Negative (Negative) 11/29/22 17:58 Ur Leukocyte Esterase Negative (Negative) 11/29/22 17:58 Blood Type A Positive 11/29/22 17:03 Antibody Screen NEGATIVE 11/29/22 17:03 11/30/22 11/29/22 06:53 20:46 POC Glucose 109 H 148 H Electrocardiogram Date: 11/29/22 Normal sinus rhythm, rate 95 bpm Prolonged QT possible old inferior LA Abnormal ECG When compared with ECG of 25-MAR-2022 09:21, Sinus rhythm has replaced Ectopic atrial rhythm Confirmed by Macario Sahu ([id number]) on 11/29/2022 5:20:12 PM Chest X-Ray Date: 11/29/22 FINDINGS: The lungs are clear. Cardiac silhouette is normal in size. No pleural effusions. No pneumothorax. Mild elevation of the right hemidiaphragm, unchanged. Prior cholecystectomy. IMPRESSION: No significant change compared to the prior study. No acute process. Cervical Spine Date: 03/25/22 IMPRESSION: 1. No acute abnormality.
[2022-11-30 07:29] LABS: INR 1.1 (0.9-1.1); Prothrombin Time 11.9 Seconds (9.0-12.0)
--- NOTE | 2022-11-30 08:26 | Hospitalist Progress Note ---
Date of Service November 30, 2022 Assessment & Plan (1) Intertrochanteric fracture of left hip: Plan: acute significant risk -The patient sustained a mechanical fall from standing this am, now with a Comminuted, angulated, and displaced intertrochanteric/subtrochanteric fracture of the proximal left femur. - -Dr Jones planning on IM nailing -The patient is of appropriate risk from a cardiovascular standpoint given her pain and dysfunction, and is stable for her procedure hold her Aspirin -Pain control with the following: >650 mg PO tylenol q6h >10 mg PO baclofen TID >Oxycodone 5 mg PO IR q4h prn pain 4,5,6+ >Ice and lidocaine patch to the affected area -BL SCDs for DVT PPX for now - (2) Diabetes: Plan: chronic and stable , will need acute management in perioperative period -Hold metformin and semaglutide -Will monitor BSG ACHS, goal is 110-140 -Will start with 5 units lantus BID, correction factor of 40 and carb ratio of 15 (3) Hypothyroidism: Plan: chronic and stable Continue levothyroxine (4) Asthma: Plan: chronic and -Stable on RA - prn albuterol (5) GERD (gastroesophageal reflux disease): Plan: -Continue famotidine (6) Hypertension: Plan: -Will continue hydrochlorothiazide, mag, and potassium chloride -Will hold home Lisinopril for now (7) Hyperlipidemia: Plan: -Continue atorvastatin (8) Rheumatoid arthritis: Plan: -Chronic and stable, Patient currently on Hydroxychloroquine, will continue her 400 mg PO Qpm Admission and Anticipated Discharge Date Admission Date: November 29, 2022 Subjective Patient was seen preoperatively she distill denies chest pain shortness of breath nausea or vomiting. She has pain at the left hip she has good distal strength and sensation to her foot for the operating room today with acceptable surgical risk as best we can tell Physical Exam Physical Exam: Awake alert appropriate. Cardiac exam is regular no murmurs lungs are clear listened anterior laterally abdomen NABS soft and nontender her left hip is uncomfortable to exam her leg is not shortened or rotated there is good dorsalis pedis pulse and sensation along with capillary refill to her distal left leg Results & Data Results & Data ([facility]) Vital Signs (Past 12 Hours) Vital Signs Temp Pulse Resp BP Pulse Ox O2 Del Method 11/30/22 07:31 97.5 F L 89 18 141/81 H 94 Room Air 11/29/22 20:48 Room Air 11/29/22 20:48 98.8 F 93 H 20 137/83 94 Room Air Laboratory Results Reviewed CBC Reviewed coagulation studies Reviewed chemistry PG Care Time/CCT Total # of Minutes Spent Total Time Spent with Patient: Total time spent is greater than 50% in coordination of care (as documented) at patient's floor/unit and/or counseling patient: Coding Level of Care Code 91367 SUB INP/OBS CARE 2/35MIN Diagnoses Intertrochanteric fracture of left hip S72.142A Diabetes E11.9 Diabetes mellitus complication status: with hyperglycemia Diabetes mellitus type: type 2 Hypothyroidism E03.9 Asthma J45.909 GERD (gastroesophageal reflux disease) K21.9 Hypertension I10 Hyperlipidemia E78.5 Rheumatoid arthritis M06.9 (2) Diabetes Diabetes mellitus complication status: with hyperglycemia Diabetes mellitus type: type 2
[2022-11-30] MEDS: INSULIN ASPART PER UNIT SC SCH ×4 (09:38→21:02)
[2022-11-30] MEDS: MAGNESIUM SULFATE / D5W 1 GM/100 ML BAG IV SCH ×2 (09:47→15:25)
[2022-11-30] MEDS ORDERED: fentaNYL citrate 100 MCG/2 ML VIAL ONE ×2 (11:05→12:47)
[2022-11-30] MEDS ORDERED: MIDAZOLAM HCL 1 MG/ML 2ML VIAL ONE (11:05)
[2022-11-30] MEDS ORDERED: ceFAZolin 2,000 MG/15 ML IV PUSH IV ONE (11:16)
[2022-11-30] MEDS ORDERED: ePHEDrine sulfate 50 MG/ML AMP IV PRN (11:17)
[2022-11-30] MEDS ORDERED: ATROPINE SULFATE 0.1 MG/ML 10ML SYR IV PRN (11:17)
[2022-11-30] MEDS ORDERED: ONDANSETRON INJ 2 MG/ML 2 ML VIAL IV PRN (11:17)
--- NOTE | 2022-11-30 11:27 | History & Physical Bridge Note ---
Date of Service November 30, 2022 History & Physical Bridge Note I have examined the patient, reviewed the History & Physical and in the interval since the performance of the History & Physical I have noted the following changes of clinical significance: no changes noted
[2022-11-30] MEDS ORDERED: BUPIVACAINE/EPINEPHRINE 0.5% MPF 1:200,000 30 ML VIAL ONE (12:00)
[2022-11-30] MEDS ORDERED: LIDOCAINE 2% MPF LOCAL 5 ML VIAL INFIL ONE (12:03)
[2022-11-30] MEDS ORDERED: ONDANSETRON INJ 2 MG/ML 2 ML VIAL ONE (12:03)
[2022-11-30] MEDS ORDERED: PROPOFOL IV EMULSION 10 MG/ML 20 ML VIAL IV ONE (12:03)
[2022-11-30] MEDS ORDERED: DEXAMETHASONE SOD INJ 4 MG/ML VIAL ONE (12:03)
[2022-11-30] MEDS ORDERED: PHENYLEPHRINE HCL 10 MG/ML VIAL ONE (13:14)
--- NOTE | 2022-11-30 13:31 | Operative Report ---
PG Post Operative Report Pre & Post Diagnosis Operation Date: 11/30/22 07:00 Pre-Op Diagnosis: Intertrochanteric fracture of left hip, with subtrochanteric extension Post-Op Diagnosis: Intertrochanteric fracture of left hip, with subtrochanteric extension I identified the patient and participated in the time-out.: Yes Procedure Operation Date: 11/30/22 07:00 Actual Procedures p Left Trochanteric Femoral Nail(Left) - Mickey Manuel MD Complexity modifier: Patient BMI was greater than 35. The fracture pattern was with subtrochanteric extension. Additional measures were needed for patient positioning, radiographic visualization, instrumentation, and reduction maneuvers to achieve appropriate reduction and fixation. The excess of BMI and fracture pattern extended the time and difficulty of the surgery. Surgeon Mickey Manuel MD Hoisting Engineer Everette Askew PA-C and Jaqui Duval PA-C Estimated Blood Loss 100 Findings See Below Comminuted, three-part intertrochanteric fracture with subtrochanteric extension, stabilized with a long trochanteric fixation nail by [employer]ynthe[employer]. All Synthes implants: 11 mm/130 degree titanium cannulated trochanteric fixation nail of 360 mm length. 11.0 mm titanium helical blade of 100 mm length. Distal interlock screw measuring 46 mm. Specimens none Anesthesia Type MAC Spinal Regional Complications none Disposition Accompanied Patient To Recovery: No Disposition: Surgical ICU Indications 62-year-old female sustained a fall onto her hip yesterday, resulting in immediate pain and inability to bear weight. She was diagnosed with a i ntertrochanteric femur fracture in the emergency room and admitted to the hospitalist service for medical optimization. Orthopedics was consulted for definitive management of the fracture. She was seen and evaluated by Dr. Gil, and recommended for surgery. Today, I was available to do the surgery in a timely manner. I met independently with the patient and explained the diagnosis, prognosis, and recommended treatment of surgery with a long trochanteric femur fracture nail. Patient was agreeable, and informed consent was obtained today in the preoperative holding area. Description of Procedure On the day of surgery should be was greeted in the preoperative holding area and the informed consent was reviewed and confirmed. The surgical site was then identified by the patient and signed by myself. The patient was taken to the operating placed by the OR table and anesthesia was induced. The patient is then positioned on the fracture table. All genna prominences were well padded. The operative foot was placed in the fracture boot with abundant padding. The well leg was secured. We then positioned the lower extremities in a scissor fashion with a non-op leg flexed down to allow visualization with fluoroscopy which was confirmed before we prepped and draped. Surgical timeout was called and verified by all present. Antibiotics were infused, and equipment was available and functional. The procedure was initiated with a closed reduction maneuvers. Gentle in-line traction pulled the fracture out to length. The limb was then internally rotated to reduce the proximal femur. Flexion and adduction were used to adjust the reduction and allow access to the greater trochanter. Additional fluoroscopic views were needed to visualize his fracture due to the subtrochanteric unstable pattern and body habitus. To get appropriate reduction, we had to hold the femur out of varus and flexion. We had adequate reduction prior to prepping and draping. The leg was then prepped and draped in usual sterile fashion. Surgical timeout was reconfirmed. We initiated the surgical internal fixation portion with finding the start point with the tip of the greater trochanter. Fluoroscopic guidance was used and a small poke hole was established. The start point was confirmed on fluoroscopy in AP and lateral planes and the pin was advanced using a mallet. An incision was made about the pin to allow access for the reamers. The incision was extended due to excessive soft tissue to allow the jig to fit appropriately. The pin was then advanced past the lesser trochanter, and its position was confirmed using AP and lateral fluoroscopy. Extraordinary manual reduction was performed by my physician assistants while the guidepin was advanced appropriately. Using the protective sleeve, the opening reamer was advanced under power with fluoroscopic guidance over the guidepin while holding a manual reduction. It was advanced slowly and we did ream out some lateral bone of the trochanter. The reduction wire was then advanced down the distal femur to the level of the superior pole of the patella. Measurement was taken from the tip of the trochanter down to the end of the guidewire, and the 360 was selected. We then began sequential reaming. We started with 10 mm and used fluoroscopy to guide our reaming. We advanced the reaming in gradual increments up to a 12.5. An 11 mm nail was loaded onto the jig and advanced manually down the canal, while ensuring maintenance of the reduction on fluoroscopy. The nail was twisted and externally rotated while a manual reduction was held at the subtrochanteric region. This helped to reduce the fracture using the nail. We then tapped it down into place until we achieve the good position for our cephalo-medullary screw. The cannula was placed on the jig to allow positioning of the cephalo-medullary screw. The skin incision was made in the appropriate spot. The jig cannulas were then placed against the lateral cortex. The cephalo-medullary screw guidepin was advanced towards the femoral head. The excessive proximal tissue made it difficult to advance the jig down low enough. We had to reposition several times to advance the nail further down the femur to allow appropriate trajectory across the head and neck. Eventually, the center-center position was confirmed on fluoroscopy in AP and lateral planes. The length of the screw was measured off the guide. The helical blade screw was then opened on the back table and prepared on the screwdriver. The lateral cortical opening drill, followed by the triple drill reamer for the helical blade was advanced under fluoroscopic guidance. The helical blade was advanced over the guidepin to ap propriate position. The helical blade was locked in rotation and then the traction was taken off. Fluoroscopy confirmed maintenance of reduction and adequate position of the implant. The compression sleeve was then advanced against the lateral femur to improve the trochanteric-shaft reduction and compress the intertrochanteric region fracture. Attention was then directed distally to perform the interlock screws in using perfect [place] technique. 1 interlock screw was placed with a 5 mm diameter. The length was measured using a depth gauge, with fluoroscopic guidance. This completed the fixation. This completed the fixation of the fracture. Fluoroscopy was used in both AP and lateral planes to evaluate the entirety of the fracture and implant. Reduction and implant positions were acceptable. The wounds were then thoroughly irrigated with bulb syringe and normal saline. The deep fascial layer was approximated with 0 Vicryl suture. The dermal layer was approximated using 2-0 Vicryl suture. The final skin closure was completed with belkis. Wounds were dressed with sterile Xeroform, sterile gauze, and foam tape over ABDs. The patient tolerated procedure well, awoke from anesthesia without complication, was extubated in the operating room, and transferred to the PACU in stable condition. Disposition: The patient be weightbearing as tolerated. I recommended routine DVT prophylaxis consisting of aspirin therapy, if tolerable. DVT prophylaxis should last 6 weeks. 24 hours of antibiotic prophylaxis should be continued. Physician visitor service assistant attestation: Everette Askew PA-C was present and scrubbed for the duration of the case. He was essential to prepping/draping, patient positioning, retraction, and assistance with wound closure. In particular to this case, skilled assistance was critical to assist with manual reduction and instrumentation. I attest to the content of the Intraoperative Record and any orders documented therein. Any exceptions are noted below.
[2022-11-30] MEDS: fentaNYL citrate 100 MCG/2 ML VIAL IV PRN ×3 (14:06→14:16)
--- NOTE | 2022-11-30 14:22 | Fluoroscopy Report ---
FL hip LT 2-3V CLINICAL HISTORY: Left troch nail TECHNIQUE: 6 views were obtained with the C-arm in the OR with the above procedure. Total fluoroscopy time was 183.3 seconds. Radiation dose was 53.83 mGy. Comparison: None available at the time of this dictation. FINDINGS/IMPRESSION: Intraoperative images were obtained of left trochanteric nail placement. Please correlate with intraoperative fluoroscopy and operative report. ACT 112: Negative or not required by law. Electronically signed by: Nacho Strickland M.D. 11/30/2022 2:21 PM
--- NOTE | 2022-11-30 14:26 | XRay Report ---
XR femur LT 2V routine CLINICAL HISTORY: Post op TECHNIQUE: 2 radiographic views of the left femur were obtained. Comparison: Comparison is made to left hip radiographs 11/29/2022 FINDINGS: Patient is status medullary josesito placement with expected postsurgical changes including soft tissue sw elling and subcutaneous emphysema. No periarticular lucency or hardware fracture is seen. Incidental note is made of total knee arthroplasty. IMPRESSION: Expected postoperative appearance. ACT 112: Negative or not required by law. Electronically signed by: Nacho Strickland M.D. 11/30/2022 2:25 PM
[2022-11-30] MEDS: POTASSIUM CHLORIDE CRTAB 20 MEQ TABCR PO SCH (15:26)
[2022-11-30] MEDS: BACLOFEN 10 MG TAB PO SCH ×3 (15:30→20:28)
[2022-11-30] MEDS: FERROUS SULFATE 325 MG TAB PO SCH (15:30)
[2022-11-30] MEDS: LIDOCAINE 5% 1 PATCH TD SCH (15:31)
[2022-11-30] MEDS: hydroCHLOROthiazide 25 MG TAB PO SCH (15:31)
[2022-11-30] MEDS: LANTUS PER UNIT CHARGE SQ SCH ×2 (15:31→21:02)
[2022-11-30] MEDS: PANTOprazole 40 MG TAB PO SCH (15:32)
[2022-11-30] MEDS: MAGNESIUM OXIDE 400 MG TAB PO SCH (15:32)
[2022-11-30] MEDS: ACETAMINOPHEN 500 MG TAB PO SCH ×2 (17:44→22:51)
[2022-11-30] MEDS: oxyCODONE HCL IR 5 MG TAB (IMMEDIATE RELEASE) PO PRN (18:14)
[2022-11-30] MEDS: ceFAZolin 2000MG 2,000 MG/15 ML SYR IV SCH (18:14)
[2022-11-30] MEDS: DOCUSATE SODIUM/SENNA 50/8.6MG TAB PO SCH (20:27)
[2022-11-30] MEDS: HYDROXYCHLOROQUINE SULFATE 200 MG TAB PO SCH (20:28)
[2022-11-30] MEDS: ATORVASTATIN 10 MG TAB PO SCH (20:29)
[2022-11-30] MEDS: FAMOTIDINE 40 MG TABLET PO SCH (20:29)
[2022-12-01] MEDS: ceFAZolin 2000MG 2,000 MG/15 ML SYR IV SCH ×2 (04:34→05:59)
[2022-12-01] MEDS: LEVOTHYROXINE SODIUM 175 MCG TABLET PO SCH (05:45)
[2022-12-01] MEDS ORDERED: Nursing to Pharmacy Communication SCH (06:00)
[2022-12-01] MEDS: oxyCODONE HCL IR 5 MG TAB (IMMEDIATE RELEASE) PO PRN ×3 (07:37→19:55)
[2022-12-01] MEDS: ACETAMINOPHEN 500 MG TAB PO SCH ×2 (07:42→14:39)
[2022-12-01] MEDS ORDERED: SODIUM CHLORIDE 0.9% 500 ML IV SCH (08:00)
[2022-12-01] MEDS ORDERED: ceFAZolin 2000MG 2,000 MG/15 ML SYR IV SCH (08:00)
[2022-12-01 08:38] LABS: Hematocrit (blood only) 26.8 % (37.0-47.0); Hemoglobin 8.9 g/dl (12.0-16.0); Mean Corpuscular Hemoglobin 30.6 pg (25.0-34.0); Mean Corpuscular Hgb Conc 33.2 g/dL (32.0-36.0); Mean Corpuscular Volume 92.1 fL (80.0-100.0); Mean Platelet Volume 11.4 fL (9.4-12.4); Platelet Count 192 K/uL (130-400); RDW Coefficient of Variation 12.9 % (11.5-14.5); RDW Standard Deviation 42.7 fL (36.4-46.3); Red Blood Count 2.91 M/uL (4.20-5.40); White Blood Count 12.01 K/ul (4.8-10.8)
[2022-12-01] MEDS: ASPIRIN 325 MG ECTAB PO SCH (08:47)
[2022-12-01] MEDS: MAGNESIUM OXIDE 400 MG TAB PO SCH (08:47)
[2022-12-01] MEDS: BACLOFEN 10 MG TAB PO SCH ×3 (08:47→20:58)
[2022-12-01] MEDS: PANTOprazole 40 MG TAB PO SCH (08:47)
[2022-12-01] MEDS: FERROUS SULFATE 325 MG TAB PO SCH (08:47)
[2022-12-01] MEDS: POTASSIUM CHLORIDE CRTAB 20 MEQ TABCR PO SCH (08:48)
[2022-12-01] MEDS: LIDOCAINE 5% 1 PATCH TD SCH (08:52)
[2022-12-01 09:02] LABS: BUN Creatinine Ratio 17.2 (10-20); Calcium 8.8 mg/dl (8.5-10.1); Creatinine Clr Calc Pharmacy 56.9 ml/min; Est GFR (African American) 48.7 ml/min; Est GFR (Non-African American) 42.1 ml/min; Magnesium 1.9 mg/dl (1.7-2.4); Potassium 4.2 mmol/L (3.5-5.1)
[2022-12-01] MEDS: LANTUS PER UNIT CHARGE SQ SCH ×2 (09:02→20:49)
[2022-12-01] MEDS: hydroCHLOROthiazide 25 MG TAB PO SCH (09:32)
[2022-12-01] MEDS ORDERED: SODIUM CHLORIDE 0.9% 1000ML 500 ML IV ONE (09:50)
[2022-12-01] MEDS: INSULIN ASPART PER UNIT SC SCH ×4 (10:08→20:49)
--- NOTE | 2022-12-01 10:19 | Electrocardiogram Report ---
Test Reason : Blood Pressure : / mmHG Vent. Rate : 159 BPM Atrial Rate : 318 BPM P-R Int : 000 ms QRS Dur : 080 ms QT Int : 244 ms P-R-T Axes : 074 -09 072 degrees QTc Int : 396 ms Poor data quality, interpretation may be adversely affected Atrial flutter with 2:1 A-V conduction Abnormal ECG When compared with ECG of 29-NOV-2022 13:31, Atrial flutter has replaced Sinus rhythm Vent. rate has increased BY [address] now depressed in Inferior leads ST now depressed in Lateral leads Confirmed by Macario Sahu ([id number]) on 12/01/2022 10:19:40 AM Referred By: REFERRED SELF Confirmed By:Jason Sahu
[2022-12-01] MEDS: POTASSIUM CHLORIDE 20 MEQ in LACTATED RINGER'S 1,000 ML IV SCH (10:55)
[2022-12-01] MEDS: MoRPHine SULFATE 2 MG/ML CARP IV PRN ×2 (10:58→14:40)
[2022-12-01] MEDS ORDERED: MAGNESIUM SULFATE / D5W 1 GM/100 ML BAG IV ONE (11:01)
--- NOTE | 2022-12-01 12:42 | Electrocardiogram Report ---
Test Reason : Blood Pressure : / mmHG Vent. Rate : 136 BPM Atrial Rate : 153 BPM P-R Int : 000 ms QRS Dur : 096 ms QT Int : 310 ms P-R-T Axes : 000 034 115 degrees QTc Int : 466 ms Atrial fibrillation with rapid ventricular response Nonspecific T wave abnormality Abnormal ECG When compared with ECG of 01-DEC-2022 07:46, Atrial fibrillation has replaced Atrial flutter Criteria for Inferior infarct are no longer Present ST no longer depressed in Inferior leads ST no longer depressed in Lateral leads Confirmed by Macario Sahu ([id number]) on 12/01/2022 12:42:11 PM Referred By: REFERRED SELF Confirmed By:Jason Sahu
--- NOTE | 2022-12-01 12:59 | Orthopedic Progress Note ---
Date of Service December 01, 2022 Assessment & Plan (1) Closed hip fracture: s/p Left Trochanteric Femoral Nail (DOS 12/01/2022; Dr. Manuel) -Appears stable on POD 1 -WBAT to LLE; OOB with assistance; PT/OT consults placed -Pain stable on current regimen -ASA 325 mg daily for DVT ppx; will need for 6 weeks; defer to primary team if another agent preferred for A-fib and/or creatinine elevation. -Post op abx ordered -Reinforce dressing if saturated until POD 3 -Suspect tachycardia, mild GER, anemia related to dehydration/intraoperative blood loss; defer to Medicine for management; appreciate assistance Dispo: Needs PT/OT evaluation for disposition planning. Suspect need for inpatient rehab upon hospital discharge. Will follow along, call with questions. Discussed w/ Dr. Manuel Subjective Feels a little lethargic today. Was tachycardic this morning, now stable. Hip pain is stable. No numbness in left leg. Review of Systems All systems reviewed & are unremarkable except as noted in HPI & below. Physical Exam General: Pleasant 62 y/o/f resting comfortably in bed in NAD. AAO x 4. LLE: Dressing C/D/I. Leg lengths equal. Expected incisional tenderness, mostly over proximal incision. Distally N/V/I. Results & Data Results & Data Laboratory Results Reviewed - Meat Cutting Teacher trending up (~1.3 from ~0.9), Hgb trending down (8.9 from 10.3) Diagnostic Findings Reviewed - Expected post operative findings on post operative femur XRs . PG Care Time/CCT Total # of Minutes Spent Total Time Spent with Patient: Total time spent is greater than 50% in coordination of care (as documented) at patient's floor/unit and/or counseling patient: Supervising Physician Co-Signing Physician Notes I independently evaluated Ms. Martínez. Agree with above note. We will continue to follow. Coding Level of Care Code 12760 Post Operative Follow-Up Diagnoses Closed hip fracture S72.002A Encounter type: initial encounter Laterality: left (1) Closed hip fracture Encounter type: initial encounter Laterality: left Qualified Code(s): S72.002A - Fracture of unspecified part of neck of left femur, initial encounter for closed fracture
[2022-12-01] MEDS ORDERED: METOPROLOL TARTRATE 1 MG/ML VIAL IV PRN (13:37)
[2022-12-01] MEDS ORDERED: METOPROLOL TARTRATE 25 MG TAB PO ONE ×2 (14:02→16:06)
--- NOTE | 2022-12-01 14:32 | Hospitalist Progress Note ---
Date of Service December 01, 2022 Assessment & Plan (1) Atrial fibrillation: Plan: Acute moderate risk uncontrolled Found on morning vital signs and confirmed by EKG, rate reduced with volume resuscitation but atrial fibrillation persists. Patient transferred to higher level of care on 11/30/2022. Metoprolol tartrate 12.5 mg p.o. given with concern his blood pressures are low but stable. Parenteral metoprolol available Patient is also on Synthroid with last TSH checked last summer we will check TSH and T4 these labs are ordered for the 3 PM 12/01/2022 (2) Intertrochanteric fracture of left hip: Plan: acute significant risk -The patient sustained a mechanical fall from standing this am, now with a Comminuted, angulated, and displaced intertrochanteric/subtrochanteric fracture of the proximal left femur. - -Dr. Manuel performed surgery on 11/30/2022 Left Trochanteric Femoral Nail hold her Aspirin -Pain control with the following: >650 mg PO tylenol q6h >10 mg PO baclofen TID >Oxycodone 5 mg PO IR q4h prn pain 4,5,6+ >Ice and lidocaine patch to the affected area Aspirin 325 a day for DVT prevention as recommended by surgeon does have post operative acute blood loss anemia and acute kidney injury - (3) Diabetes: Plan: chronic and stable , will need acute management in perioperative period -Holding metformin and semaglutide -Will monitor BSG ACHS, goal is 110-140 -Will start with 5 units lantus BID, correction factor of 40 and carb ratio of 15 (4) Hypothyroidism: Plan: chronic and stable Continue levothyroxine , will check tsh and T4 (5) Asthma: Plan: chronic and -Stable on RA - prn albuterol (6) GERD (gastroesophageal reflux disease): Plan: -Continue famotidine (7) Hypertension: Plan: -Will hold hydrochlorothiazide, and lisinopri additional ivf bp is lower (8) Hyperlipidemia: Plan: -Continue atorvastatin (9) Rheumatoid arthritis: Plan: -Chronic and stable, Patient currently on Hydroxychloroquine, will continue her 400 mg PO Qpm Admission and Anticipated Discharge Date Admission Date: November 29, 2022 Subjective Patient was seen this morning she was pale she has newfound A-fib which is new diagnosis she does not have chest pain or palpitations with that she is not short of breath. We attempted to give her fluid boluses initially which did not help and she was transferred to PCU for administration of parenteral beta- blockers. Patient has replete potassium and magnesium are initially low. She has acute blood loss anemia were currently watching need for transfusion. She is acute kidney injury or evaluating after hydration Physical Exam Physical Exam: Awake alert appropriate. Pain is controlled. Patient is pale has pale conjunctiva in the palmar creases Exam is tachycardic and irregular Lungs are clear without wheezes or crackles Extremities without edema good distal sensation on the operated leg which is the left Results & Data Results & Data ([facility]) Vital Signs (Past 12 Hours) Vital Signs Temp Pulse Pulse Pulse Resp BP BP 12/01/22 13:48 98.4 F 155 H 20 102/72 12/01/22 13:46 156 H 102/72 12/01/22 11:33 97.9 F 135 H 136 H 18 116/79 12/01/22 10:32 86 109/76 12/01/22 08:43 132 H 109/76 12/01/22 07:00 98.2 F 158 H 18 98/60 L 12/01/22 03:49 98.2 F 73 17 109/73 Pulse Ox O2 Del Method 12/01/22 13:48 92 Room Air 12/01/22 13:46 12/01/22 11:33 96 Room Air 12/01/22 10:32 12/01/22 08:43 95 Room Air 12/01/22 07:00 96 Room Air 12/01/22 03:49 96 Room Air Laboratory Results Reviewed CBC reviewed PRP reviewed magnesium Reviewed EKG before cardiac service had read it shows atrial fibrillation with rapid ventricular response no acute ST or T wave changes PG Care Time/CCT Total # of Minutes Spent Total Time Spent with Patient: Total time spent is greater than 50% in coordination of care (as documented) at patient's floor/unit and/or counseling patient: Coding Level of Care Code 70603 SUB INP/OBS CARE 3/50MIN Diagnoses Atrial fibrillation I48.91 Intertrochanteric fracture of left hip S72.142A Diabetes E11.9 Diabetes mellitus type: type 2 Diabetes mellitus complication status: with hyperglycemia Hypothyroidism E03.9 Asthma J45.909 GERD (gastroesophageal reflux disease) K21.9 Hypertension I10 Hyperlipidemia E78.5 Rheumatoid arthritis M06.9 (3) Diabetes Diabetes mellitus type: type 2 Diabetes mellitus complication status: with hyperglycemia
--- NOTE | 2022-12-01 16:38 | Communication Note ---
Date of Service: December 01, 2022 Given the new onset of atrial fibrillation discussions were had with orthopedics regarding postoperative DVT prevention. Currently the patient is ordered aspirin 325. Orthopedics is flexible with regard to this medication choice and it may be permissible to have the patient on Eliquis at atrial fibrillation doses for 1 month postoperatively which we 5 twice daily rather than 2.5 twice daily that is typically used for joint prophylaxis. However given her postoperative acute blood loss anemia we are awaiting her evening hemoglobin level checked on 12/01/2022 I would likely continue the aspirin and start this medication at a later date once her hemoglobin level is stable. Theoretically if she converts to sinus rhythm and under 72 hours we may not need to consider anticoagulation but given the fact that this could be paroxysmal or situational consideration for anticoagulation at discharge could be considered.
[2022-12-01 17:00] LABS: Hemoglobin 7.8 g/dl (12.0-16.0); Mean Corpuscular Hemoglobin 30.1 pg (25.0-34.0); Mean Corpuscular Hgb Conc 32.5 g/dL (32.0-36.0); Mean Corpuscular Volume 92.7 fL (80.0-100.0); Mean Platelet Volume 11.6 fL (9.4-12.4); Platelet Count 176 K/uL (130-400); RDW Standard Deviation 43.5 fL (36.4-46.3); Red Blood Count 2.59 M/uL (4.20-5.40); White Blood Count 12.15 K/ul (4.8-10.8)
[2022-12-01 17:06] LABS: BUN Creatinine Ratio 18.5 (10-20); Calcium 8.4 mg/dl (8.5-10.1); Creatinine Clr Calc Pharmacy 64.1 ml/min; Est GFR (African American) 56.3 ml/min; Est GFR (Non-African American) 48.5 ml/min; Potassium 4.3 mmol/L (3.5-5.1)
[2022-12-01 17:20] LABS: Thyroid Stimulating Hormone 0.01 uIu/ml (0.300-4.500)
[2022-12-01 17:22] LABS: T4 Free Thyroxine 2.04 ng/dl (0.61-1.60)
--- NOTE | 2022-12-01 18:11 | Hospitalist Progress Note ---
Date of Service December 01, 2022 Assessment & Plan (1) Atrial fibrillation: Plan: Acute moderate risk uncontrolled Found on morning vital signs and confirmed by EKG, rate reduced with volume resuscitation but atrial fibrillation persists. Patient transferred to higher level of care on 11/30/2022. Metoprolol tartrate 12.5 mg p.o. given with concern his blood pressures are low but stable. Parenteral metoprolol available Patient is also on Synthroid with last TSH checked last summer TSH returned back in the afternoon of 12/01/2022 showed suppressed TSH and elevated T4 or likely from over replacement. Subsequently her Synthroid is stopped on 12/02 likely will need a day or 2 to drift downwards and restarted at a lower level with close outpatient follow-up (2) Intertrochanteric fracture of left hip: Plan: acute significant risk -The patient sustained a mechanical fall from standing this am, now with a Comminuted, angulated, and displaced intertrochanteric/subtrochanteric fracture of the proximal left femur. - -Dr. Manuel performed surgery on 11/30/2022 Left Trochanteric Femoral Nail hold her Aspirin -Pain control with the following: >650 mg PO tylenol q6h >10 mg PO baclofen TID >Oxycodone 5 mg PO IR q4h prn pain 4,5,6+ >Ice and lidocaine patch to the affected area Aspirin 325 a day for DVT prevention as recommended by surgeon does have post operative acute blood loss anemia and acute kidney injury - (3) Diabetes: Plan: chronic and stable , will need acute management in perioperative period -Holding metformin and semaglutide -Will monitor BSG ACHS, goal is 110-140 -Will start with 5 units lantus BID, correction factor of 40 and carb ratio of 15 (4) Hypothyroidism: Plan: chronic and stable Continue levothyroxine , will check tsh and T4 (5) Asthma: Plan: chronic and -Stable on RA - prn albuterol (6) GERD (gastroesophageal reflux disease): Plan: -Continue famotidine (7) Hypertension: Plan: -Will hold hydrochlorothiazide, and lisinopri additional ivf bp is lower (8) Hyperlipidemia: Plan: -Continue atorvastatin (9) Rheumatoid arthritis: Plan: -Chronic and stable, Patient currently on Hydroxychloroquine, will continue her 400 mg PO Qpm Admission and Anticipated Discharge Date Admission Date: November 29, 2022 Results & Data Results & Data ([facility]) Vital Signs (Past 12 Hours) Vital Signs Temp Pulse Pulse Pulse Resp BP BP 12/01/22 16:00 129 H 12/01/22 15:40 98.6 F 125 H 19 119/63 12/01/22 13:48 98.4 F 155 H 20 102/72 12/01/22 14:35 120 H 104/59 L 12/01/22 13:46 156 H 102/72 12/01/22 11:33 97.9 F 135 H 136 H 18 116/79 12/01/22 10:32 86 109/76 12/01/22 08:43 132 H 109/76 12/01/22 07:00 98.2 F 158 H 18 98/60 L Pulse Ox O2 Del Method 12/01/22 16:00 12/01/22 15:40 94 Room Air 12/01/22 13:48 92 Room Air 12/01/22 14:35 12/01/22 13:46 12/01/22 11:33 96 Room Air 12/01/22 10:32 12/01/22 08:43 95 Room Air 12/01/22 07:00 96 Room Air PG Care Time/CCT Total # of Minutes Spent Total Time Spent with Patient: Total time spent is greater than 50% in coordination of care (as documented) at patient's floor/unit and/or counseling patient: Coding Level of Care Code None Diagnoses Atrial fibrillation I48.91 Intertrochanteric fracture of left hip S72.142A Diabetes E11.9 Diabetes mellitus complication status: with hyperglycemia Diabetes mellitus type: type 2 Hypothyroidism E03.9 Asthma J45.909 GERD (gastroesophageal reflux disease) K21.9 Hypertension I10 Hyperlipidemia E78.5 Rheumatoid arthritis M06.9 (3) Diabetes Diabetes mellitus complication status: with hyperglycemia Diabetes mellitus type: type 2
[2022-12-01 18:12] LABS: Hematocrit (blood only) 22.8 % (37.0-47.0); Hemoglobin 7.7 g/dl (12.0-16.0)
[2022-12-01] MEDS ORDERED: SODIUM CHLORIDE 0.9% 250 ML IV PRN (18:16)
[2022-12-01] MEDS: METOPROLOL TARTRATE 25 MG TAB PO SCH (20:58)
[2022-12-01] MEDS: FAMOTIDINE 40 MG TABLET PO SCH (20:59)
[2022-12-01] MEDS: ATORVASTATIN 10 MG TAB PO SCH (20:59)
[2022-12-01] MEDS: HYDROXYCHLOROQUINE SULFATE 200 MG TAB PO SCH (20:59)
[2022-12-01] MEDS: DOCUSATE SODIUM/SENNA 50/8.6MG TAB PO SCH (21:02)
[2022-12-02] MEDS: ACETAMINOPHEN 500 MG TAB PO SCH ×4 (00:06→20:02)
[2022-12-02 01:13] LABS: Hematocrit (blood only) 28.3 % (37.0-47.0); Hemoglobin 9.8 g/dl (12.0-16.0)
[2022-12-02 06:36] LABS: Hematocrit (blood only) 28.6 % (37.0-47.0); Hemoglobin 9.7 g/dl (12.0-16.0); Mean Corpuscular Hemoglobin 30.8 pg (25.0-34.0); Mean Corpuscular Hgb Conc 33.9 g/dL (32.0-36.0); Mean Corpuscular Volume 90.8 fL (80.0-100.0); Mean Platelet Volume 11.6 fL (9.4-12.4); Platelet Count 149 K/uL (130-400); RDW Coefficient of Variation 13.3 % (11.5-14.5); RDW Standard Deviation 43.7 fL (36.4-46.3); Red Blood Count 3.15 M/uL (4.20-5.40); White Blood Count 9.38 K/ul (4.8-10.8)
[2022-12-02 06:48] LABS: Calcium 8.8 mg/dl (8.5-10.1); Creatinine Clr Calc Pharmacy 79.9 ml/min; Est GFR (African American) 69.4 ml/min; Est GFR (Non-African American) 59.9 ml/min; Potassium 4.7 mmol/L (3.5-5.1)
[2022-12-02] MEDS: ASPIRIN 325 MG ECTAB PO SCH (08:08)
[2022-12-02] MEDS: BACLOFEN 10 MG TAB PO SCH ×3 (08:09→20:03)
[2022-12-02] MEDS: FERROUS SULFATE 325 MG TAB PO SCH (08:10)
[2022-12-02] MEDS: LIDOCAINE 5% 1 PATCH TD SCH (08:11)
[2022-12-02] MEDS: MAGNESIUM OXIDE 400 MG TAB PO SCH (08:12)
[2022-12-02] MEDS: METOPROLOL TARTRATE 25 MG TAB PO SCH ×2 (08:13→20:03)
[2022-12-02] MEDS: PANTOprazole 40 MG TAB PO SCH (08:13)
[2022-12-02] MEDS: LANTUS PER UNIT CHARGE SQ SCH ×2 (08:22→19:46)
[2022-12-02] MEDS: INSULIN ASPART PER UNIT SC SCH ×4 (08:23→19:46)
--- NOTE | 2022-12-02 08:34 | XRay Report ---
XR chest 1V portable CLINICAL HISTORY: SOB TECHNIQUE: Single frontal radiograph of the chest was obtained. Comparison: Comparison is made to chest radiograph to 2022 FINDINGS: Exam is limited by underpenetration. Cardiomegaly is noted. The aortic arch is calcified. The lungs a re clear. No evidence of pleural effusion or pneumothorax. IMPRESSION: No acute chest disease. ACT 112: Negative or not required by law. Electronically signed by: Nacho Strickland M.D. 12/02/2022 8:32 AM
[2022-12-02] MEDS ORDERED: ONDANSETRON INJ 2 MG/ML 2 ML VIAL IV STA (10:38)
[2022-12-02] MEDS: POTASSIUM CHLORIDE CRTAB 20 MEQ TABCR PO SCH (10:39)
[2022-12-02] MEDS: oxyCODONE HCL IR 5 MG TAB (IMMEDIATE RELEASE) PO PRN ×2 (10:45→14:51)
--- NOTE | 2022-12-02 11:29 | Electrocardiogram Report ---
Test Reason : Blood Pressure : / mmHG Vent. Rate : 095 BPM Atrial Rate : 416 BPM P-R Int : 000 ms QRS Dur : 104 ms QT Int : 352 ms P-R-T Axes : 000 022 048 degrees QTc Int : 442 ms Atrial fibrillation vs atrial flutter Abnormal ECG When compared with ECG of 01-DEC-2022 10:42, Nonspecific T wave abnormality no longer evident in Lateral leads Confirmed by Macario Sahu ([id number]) on 12/02/2022 11:28:52 AM Referred By: REFERRED SELF Confirmed By:Jason Sahu
--- NOTE | 2022-12-02 12:06 | Orthopedic Progress Note ---
Date of Service December 02, 2022 Assessment & Plan (1) Intertrochanteric fracture of left hip: (2) Status post-operative repair of closed fracture of left hip: Plan POD2 s/p Left Trochanteric Femoral Nail (DOS 12/01/2022; Dr. Manuel). Low to mobilize but making progress. -WBAT to LLE; OOB with assistance; PT/OT -ASA 325 mg daily for DVT ppx; will need for 6 weeks; defer to primary team if another agent preferred for A-fib and/or creatinine elevation. -Begin daily/prn dressing changes tomorrow (POD3) Dispo: Needs PT/OT evaluation for disposition planning. Suspect need for inpatient rehab upon hospital discharge. Will need belkis removed no earlier than 2 weeks after surgery. Repeat xrays and orthopedic followup at 6 weeks postop. Contact me via [employer] w any questions. Subjective Stable, expected pain. Has not mobilized much due to HR and Hct. No issues. Looking forward to therapy. Review of Systems All systems reviewed & are unremarkable except as noted in HPI & below. Physical Exam LLE: dressings c/d/i. DNVI. thigh compartments soft. Constitutional WD/WN, vitals as above no acute distress and not intoxicated appearing Respiratory normal respiratory effort; no labored breathing Cardiovascular Extremities: normal capillary refill Results & Data Results & Data Laboratory Results . H & H 11/29/22 11/30/22 12/01/22 Range/Units 13:43 06:22 08:04 Hgb 11.4 L 10.4 L 8.9 L (12.0-16.0) g/dl Hct 33.6 L 30.7 L 26.8 L (37.0-47.0) % 12/01/22 12/01/22 12/02/22 Range/Units 14:46 17:38 01:01 Hgb 7.8 L 7.7 L 9.8 L (12.0-16.0) g/dl Hct 24.0 L 22.8 L 28.3 L (37.0-47.0) % 12/02/22 Range/Units 05:31 Hgb 9.7 L (12.0-16.0) g/dl Hct 28.6 L (37.0-47.0) % Coagulation 11/29/22 11/30/22 Range/Units 13:43 06:22 INR 1.1 1.1 (0.9-1.1) Diagnostic Findings postop radiographs show acceptable alignment. no hardware complications. PG Care Time/CCT Total # of Minutes Spent Total Time Spent with Patient: Total time spent is greater than 50% in coordination of care (as documented) at patient's floor/unit and/or counseling patient: Coding Level of Care Code 60426 Post Operative Follow-Up Diagnoses Intertrochanteric fracture of left hip S72.142A Status post-operative repair of closed fracture of left hip Z98.890; Z87.81
--- NOTE | 2022-12-02 16:54 | Hospitalist Progress Note ---
Date of Service December 02, 2022 Assessment & Plan (1) Atrial fibrillation: Plan: Acute moderate risk uncontrolled Found on morning vital signs and confirmed by EKG, rate reduced with volume resuscitation but atrial fibrillation persists. Patient transferred to higher level of care on 11/30/2022. Metoprolol tartrate 12.5 mg p.o. given with concern his blood pressures are low but stable. Parenteral metoprolol available Patient is also on Synthroid with last TSH checked last summer TSH returned back in the afternoon of 12/01/2022 showed suppressed TSH and elevated T4 or likely from over replacement. Subsequently her Synthroid is stopped on 12/02 likely will need a day or 2 to drift downwards and restarted at a lower level with close outpatient follow-up. Hemoglobin is stable on 12/02. will recheck in afternoon and in AM. HR also improved to 96. (2) Intertrochanteric fracture of left hip: Plan: acute significant risk -The patient sustained a mechanical fall from standing this am, now with a Comminuted, angulated, and displaced intertrochanteric/subtrochanteric fracture of the proximal left femur. - -Dr. Manuel performed surgery on 11/30/2022 Left Trochanteric Femoral Nail hold her Aspirin -Pain control with the following: >650 mg PO tylenol q6h >10 mg PO baclofen TID >Oxycodone 5 mg PO IR q4h prn pain 4,5,6+ >Ice and lidocaine patch to the affected area Aspirin 325 a day for DVT prevention as recommended by surgeon does have post operative acute blood loss anemia and acute kidney injury Ordered mirlax on 12/02 due to constipation. - (3) Diabetes: Plan: chronic and stable , will need acute management in perioperative period -Holding metformin and semaglutide -Will monitor BSG ACHS, goal is 110-140 -Will start with 5 units lantus BID, correction factor of 40 and carb ratio of 15 (4) Hypothyroidism: Plan: chronic and stable Continue levothyroxine , will check tsh and T4 (5) Asthma: Plan: chronic and -Stable on RA - prn albuterol (6) GERD (gastroesophageal reflux disease): Plan: -Continue famotidine (7) Hypertension: Plan: -Will hold hydrochlorothiazide, and lisinopri additional ivf bp is lower (8) Hyperlipidemia: Plan: -Continue atorvastatin (9) Rheumatoid arthritis: Plan: -Chronic and stable, Patient currently on Hydroxychloroquine, will continue her 400 mg PO Qpm Admission and Anticipated Discharge Date Admission Date: November 29, 2022 Subjective Patient reports feeling well. She has no chest pain or shortness of breath. She was able to participate with physical therapy. Patient reports no new BM since admission. Patient is passing gas. Review of Systems Review of Systems: All systems reviewed & are unremarkable except as noted in HPI & below Physical Exam Physical Exam: Awake alert appropriate. Pain is controlled. Patient is pale has pale conjunctiva in the palmar creases Exam is tachycardic and irregular Lungs are clear without wheezes or crackles Extremities without edema good distal sensation on the operated leg which is the left Results & Data Results & Data ([facility]) Vital Signs (Past 12 Hours) Vital Signs Temp Pulse Pulse Pulse Resp BP Pulse Ox 12/02/22 15:47 96 H 12/02/22 15:43 36.9 C 96 H 18 124/67 96 12/02/22 12:00 12/02/22 11:25 36.7 C 96 H 16 120/80 12/02/22 10:00 97 H 12/02/22 06:54 36.6 C 95 H 18 116/83 97 Pulse Ox O2 Del Method O2 Del Method 12/02/22 15:47 12/02/22 15:43 Room Air 12/02/22 12:00 97 Room Air 12/02/22 11:25 Room Air 12/02/22 10:00 12/02/22 06:54 Room Air PG Care Time/CCT Total # of Minutes Spent Total Time Spent with Patient: Total time spent is greater than 50% in coordination of care (as documented) at patient's floor/unit and/or counseling patient: Coding Level of Care Code 35108 SUB INP/OBS CARE 2/35MIN Diagnoses Atrial fibrillation I48.91 Intertrochanteric fracture of left hip S72.142A Diabetes E11.9 Diabetes mellitus type: type 2 Diabetes mellitus complication status: with hyperglycemia Hypothyroidism E03.9 Asthma J45.909 GERD (gastroesophageal reflux disease) K21.9 Hypertension I10 Hyperlipidemia E78.5 Rheumatoid arthritis M06.9 (3) Diabetes Diabetes mellitus type: type 2 Diabetes mellitus complication status: with hyperglycemia
[2022-12-02] MEDS: POLYETHYLENE (MIRALAX) 17 GM PACK PO SCH (17:00)
[2022-12-02 17:25] LABS: Hematocrit (blood only) 29.7 % (37.0-47.0)
[2022-12-02] MEDS: POTASSIUM CHLORIDE 20 MEQ in LACTATED RINGER'S 1,000 ML IV SCH (19:31)
[2022-12-02] MEDS: ATORVASTATIN 10 MG TAB PO SCH (20:01)
[2022-12-02] MEDS: HYDROXYCHLOROQUINE SULFATE 200 MG TAB PO SCH (20:01)
[2022-12-02] MEDS: FAMOTIDINE 40 MG TABLET PO SCH (20:03)
[2022-12-02] MEDS: DOCUSATE SODIUM/SENNA 50/8.6MG TAB PO SCH (20:06)
[2022-12-03 06:41] LABS: Hematocrit (blood only) 27.1 % (37.0-47.0); Mean Corpuscular Hemoglobin 30.6 pg (25.0-34.0); Mean Corpuscular Hgb Conc 33.2 g/dL (32.0-36.0); Mean Corpuscular Volume 92.2 fL (80.0-100.0); Mean Platelet Volume 11.3 fL (9.4-12.4); Platelet Count 167 K/uL (130-400); RDW Coefficient of Variation 13.4 % (11.5-14.5); RDW Standard Deviation 44.5 fL (36.4-46.3); Red Blood Count 2.94 M/uL (4.20-5.40); White Blood Count 8.83 K/ul (4.8-10.8)
[2022-12-03 07:20] LABS: BUN Creatinine Ratio 19.3 (10-20); Calcium 8.8 mg/dl (8.5-10.1); Creatinine Clr Calc Pharmacy 91.1 ml/min; Est GFR (Non-African American) 69.9 ml/min; Magnesium 1.7 mg/dl (1.7-2.4); Potassium 4.2 mmol/L (3.5-5.1)
[2022-12-03] MEDS: oxyCODONE HCL IR 5 MG TAB (IMMEDIATE RELEASE) PO PRN (08:20)
[2022-12-03] MEDS: ACETAMINOPHEN 500 MG TAB PO SCH ×3 (08:21→19:40)
[2022-12-03] MEDS: METOPROLOL TARTRATE 25 MG TAB PO SCH ×2 (08:21→19:40)
[2022-12-03] MEDS: LIDOCAINE 5% 1 PATCH TD SCH (08:21)
[2022-12-03] MEDS: PANTOprazole 40 MG TAB PO SCH (08:21)
[2022-12-03] MEDS: POTASSIUM CHLORIDE CRTAB 20 MEQ TABCR PO SCH (08:21)
[2022-12-03] MEDS: FERROUS SULFATE 325 MG TAB PO SCH (08:21)
[2022-12-03] MEDS: POLYETHYLENE (MIRALAX) 17 GM PACK PO SCH (08:22)
[2022-12-03] MEDS: MAGNESIUM OXIDE 400 MG TAB PO SCH (08:22)
[2022-12-03] MEDS: ASPIRIN 325 MG ECTAB PO SCH (08:22)
[2022-12-03] MEDS: BACLOFEN 10 MG TAB PO SCH ×3 (08:27→19:41)
[2022-12-03] MEDS: INSULIN ASPART PER UNIT SC SCH ×4 (09:12→19:40)
[2022-12-03] MEDS: LANTUS PER UNIT CHARGE SQ SCH ×2 (09:13→19:32)
--- NOTE | 2022-12-03 11:37 | Electrocardiogram Report ---
Test Reason : Blood Pressure : / mmHG Vent. Rate : 076 BPM Atrial Rate : 076 BPM P-R Int : 184 ms QRS Dur : 094 ms QT Int : 400 ms P-R-T Axes : 036 043 061 degrees QTc Int : 450 ms Normal sinus rhythm Normal ECG When compared with ECG of 02-DEC-2022 10:46, Sinus rhythm has replaced Atrial fibrillation Confirmed by Macario Sahu ([id number]) on 12/03/2022 11:36:46 AM Referred By: REFERRED SELF Confirmed By:Jason Sahu
[2022-12-03] MEDS: traMADol HCL 50 MG TABLET PO PRN (17:25)
[2022-12-03] MEDS: HYDROXYCHLOROQUINE SULFATE 200 MG TAB PO SCH (19:39)
[2022-12-03] MEDS: DOCUSATE SODIUM/SENNA 50/8.6MG TAB PO SCH (19:39)
[2022-12-03] MEDS: FAMOTIDINE 40 MG TABLET PO SCH (19:39)
[2022-12-03] MEDS: ATORVASTATIN 10 MG TAB PO SCH (19:40)
--- NOTE | 2022-12-03 22:27 | Hospitalist Progress Note ---
Date of Service December 03, 2022 Assessment & Plan (1) Atrial fibrillation: Plan: Acute moderate risk uncontrolled Found on morning vital signs and confirmed by EKG, rate reduced with volume resuscitation but atrial fibrillation persists. Patient transferred to higher level of care on 11/30/2022. Metoprolol tartrate 12.5 mg p.o. given with concern his blood pressures are low but stable. Parenteral metoprolol available Patient is also on Synthroid with last TSH checked last summer TSH returned back in the afternoon of 12/01/2022 showed suppressed TSH and elevated T4 or likely from over replacement. Subsequently her Synthroid is stopped on 12/02 likely will need a day or 2 to drift downwards and restarted at a lower level with close outpatient follow-up. Hemoglobin is stable on 12/03. will recheck in afternoon and in AM. Patient switched to sinus rhythm overnight (2) Intertrochanteric fracture of left hip: Plan: acute significant risk -The patient sustained a mechanical fall from standing this am, now with a Comminuted, angulated, and displaced intertrochanteric/subtrochanteric fracture of the proximal left femur. - -Dr. Manuel performed surgery on 11/30/2022 Left Trochanteric Femoral Nail hold her Aspirin -Pain control with the following: >650 mg PO tylenol q6h >10 mg PO baclofen TID >Oxycodone 5 mg PO IR q4h prn pain 4,5,6+ >Ice and lidocaine patch to the affected area Aspirin 325 a day for DVT prevention as recommended by surgeon does have post operative acute blood loss anemia and acute kidney injury Ordered mirlax on 12/02 due to constipation. - (3) Diabetes: Plan: chronic and stable , will need acute management in perioperative period -Holding metformin and semaglutide -Will monitor BSG ACHS, goal is 110-140 -Will start with 5 units lantus BID, correction factor of 40 and carb ratio of 15 (4) Hypothyroidism: Plan: chronic and stable Continue levothyroxine , will check tsh and T4 (5) Asthma: Plan: chronic and -Stable on RA - prn albuterol (6) GERD (gastroesophageal reflux disease): Plan: -Continue famotidine (7) Hypertension: Plan: -Will hold hydrochlorothiazide, and lisinopri additional ivf bp is lower (8) Hyperlipidemia: Plan: -Continue atorvastatin (9) Rheumatoid arthritis: Plan: -Chronic and stable, Patient currently on Hydroxychloroquine, will continue her 400 mg PO Qpm Admission and Anticipated Discharge Date Admission Date: November 29, 2022 Subjective 62 yo female reports no new symptoms. Review of Systems Review of Systems: All systems reviewed & are unremarkable except as noted in HPI & below Physical Exam Physical Exam: Awake alert appropriate. Pain is controlled. Patient is pale has pale conjunctiva in the palmar creases Exam is tachycardic and irregular Lungs are clear without wheezes or crackles Extremities without edema good distal sensation on the operated leg which is the left. Results & Data Results & Data ([facility]) Vital Signs (Past 12 Hours) Vital Signs Temp Pulse Pulse Resp BP Pulse Ox O2 Del Method 12/03/22 19:18 36.8 C 64 19 122/77 95 Room Air 12/03/22 17:25 70 12/03/22 15:08 36.8 C 71 18 120/65 98 Room Air 12/03/22 12:00 36.8 C 74 18 135/77 96 Room Air PG Care Time/CCT Total # of Minutes Spent Total Time Spent with Patient: Total time spent is greater than 50% in coordination of care (as documented) at patient's floor/unit and/or counseling patient: Coding Level of Care Code 52113 SUB INP/OBS CARE 2/35MIN Diagnoses Atrial fibrillation I48.91 Intertrochanteric fracture of left hip S72.142A Diabetes E11.9 Diabetes mellitus complication status: with hyperglycemia Diabetes mellitus type: type 2 Hypothyroidism E03.9 Asthma J45.909 GERD (gastroesophageal reflux disease) K21.9 Hypertension I10 Hyperlipidemia E78.5 Rheumatoid arthritis M06.9 (3) Diabetes Diabetes mellitus complication status: with hyperglycemia Diabetes mellitus type: type 2
[2022-12-04] MEDS: ACETAMINOPHEN 500 MG TAB PO SCH ×2 (07:38→15:55)
[2022-12-04] MEDS: INSULIN ASPART PER UNIT SC SCH ×4 (07:45→20:00)
[2022-12-04] MEDS: LANTUS PER UNIT CHARGE SQ SCH ×2 (08:50→19:37)
[2022-12-04] MEDS: ASPIRIN 325 MG ECTAB PO SCH (08:53)
[2022-12-04] MEDS: POTASSIUM CHLORIDE CRTAB 20 MEQ TABCR PO SCH (08:53)
[2022-12-04] MEDS: METOPROLOL TARTRATE 25 MG TAB PO SCH ×2 (08:53→19:58)
[2022-12-04] MEDS: PANTOprazole 40 MG TAB PO SCH (08:53)
[2022-12-04] MEDS: MAGNESIUM OXIDE 400 MG TAB PO SCH (08:53)
[2022-12-04] MEDS: FERROUS SULFATE 325 MG TAB PO SCH (08:54)
[2022-12-04] MEDS: LIDOCAINE 5% 1 PATCH TD SCH (08:54)
[2022-12-04] MEDS: POLYETHYLENE (MIRALAX) 17 GM PACK PO SCH (08:54)
[2022-12-04] MEDS: BACLOFEN 10 MG TAB PO SCH ×3 (08:59→19:59)
[2022-12-04] MEDS: traMADol HCL 50 MG TABLET PO PRN ×3 (11:56→19:58)
[2022-12-04] MEDS: DOCUSATE SODIUM/SENNA 50/8.6MG TAB PO SCH (19:57)
[2022-12-04] MEDS: FAMOTIDINE 40 MG TABLET PO SCH (19:57)
[2022-12-04] MEDS: HYDROXYCHLOROQUINE SULFATE 200 MG TAB PO SCH (19:57)
[2022-12-04] MEDS: ATORVASTATIN 10 MG TAB PO SCH (19:58)
--- NOTE | 2022-12-04 22:50 | Hospitalist Progress Note ---
Date of Service December 04, 2022 Assessment & Plan (1) Atrial fibrillation: Plan: Acute moderate risk uncontrolled Found on morning vital signs and confirmed by EKG, rate reduced with volume resuscitation but atrial fibrillation persists. Patient transferred to higher level of care on 11/30/2022. Metoprolol tartrate 12.5 mg p.o. given with concern his blood pressures are low but stable. Parenteral metoprolol available Patient is also on Synthroid with last TSH checked last summer TSH returned back in the afternoon of 12/01/2022 showed suppressed TSH and elevated T4 or likely from over replacement. Subsequently her Synthroid is stopped on 12/02 likely will need a day or 2 to drift downwards and restarted at a lower level with close outpatient follow-up. Hemoglobin is stable on 12/03. will recheck in afternoon and in AM. Patient switched to sinus rhythm overnight on 12/02 Patient remains in sinus. Had discussion with cardio, will start on Eliquis near discharge. will monitor hemoglobin. will decrease aspirin to 81 mg or hold all together. (2) Intertrochanteric fracture of left hip: Plan: acute significant risk -The patient sustained a mechanical fall from standing this am, now with a Comminuted, angulated, and displaced intertrochanteric/subtrochanteric fracture of the proximal left femur. - -Dr. Manuel performed surgery on 11/30/2022 Left Trochanteric Femoral Nail hold her Aspirin -Pain control with the following: >650 mg PO tylenol q6h >10 mg PO baclofen TID >Oxycodone 5 mg PO IR q4h prn pain 4,5,6+ >Ice and lidocaine patch to the affected area Aspirin 325 a day for DVT prevention as recommended by surgeon does have post operative acute blood loss anemia and acute kidney injury Ordered mirlax on 12/02 due to constipation. -Patient reports she is passing gas. (3) Diabetes: Plan: chronic and stable , will need acute management in perioperative period -Holding metformin and semaglutide -Will monitor BSG ACHS, goal is 110-140 -Will start with 5 units lantus BID, correction factor of 40 and carb ratio of 15 (4) Hypothyroidism: Plan: chronic and stable Continue levothyroxine , will check tsh and T4 (5) Asthma: Plan: chronic and -Stable on RA - prn albuterol (6) GERD (gastroesophageal reflux disease): Plan: -Continue famotidine (7) Hypertension: Plan: -Will hold hydrochlorothiazide, and lisinopri additional ivf BP is at goal on 12/04 (8) Hyperlipidemia: Plan: -Continue atorvastatin (9) Rheumatoid arthritis: Plan: -Chronic and stable, Patient currently on Hydroxychloroquine, will continue her 400 mg PO Qpm Admission and Anticipated Discharge Date Admission Date: November 29, 2022 Subjective 62 yo female reports feeling well. She has no new complaints. Review of Systems Review of Systems: All systems reviewed & are unremarkable except as noted in HPI & below Physical Exam Physical Exam: Awake alert appropriate. Pain is controlled. Patient is pale has pale conjunctiva in the palmar creases Exam is tachycardic and irregular Lungs are clear without wheezes or crackles Extremities without edema good distal sensation on the operated leg which is the left. Results & Data Results & Data ([facility]) Vital Signs (Past 12 Hours) Vital Signs Temp Pulse Resp BP Pulse Ox O2 Del Method 12/04/22 19:00 36.7 C 75 18 130/69 95 Room Air 12/04/22 15:07 36.9 C 63 19 127/61 96 Room Air 12/04/22 11:44 36.9 C 70 20 117/60 98 Room Air PG Care Time/CCT Total # of Minutes Spent Total Time Spent with Patient: Total time spent is greater than 50% in coordination of care (as documented) at patient's floor/unit and/or counseling patient: Coding Level of Care Code 77491 SUB INP/OBS CARE 3/50MIN Diagnoses Atrial fibrillation I48.91 Intertrochanteric fracture of left hip S72.142A Diabetes E11.9 Diabetes mellitus complication status: with hyperglycemia Diabetes mellitus type: type 2 Hypothyroidism E03.9 Asthma J45.909 GERD (gastroesophageal reflux disease) K21.9 Hypertension I10 Hyperlipidemia E78.5 Rheumatoid arthritis M06.9 (3) Diabetes Diabetes mellitus complication status: with hyperglycemia Diabetes mellitus type: type 2
[2022-12-05] MEDS: ACETAMINOPHEN 500 MG TAB PO SCH ×4 (01:50→19:39)
[2022-12-05] MEDS: traMADol HCL 50 MG TABLET PO PRN ×2 (07:07→19:40)
[2022-12-05 07:47] LABS: Hematocrit (blood only) 30.2 % (37.0-47.0); Mean Corpuscular Hemoglobin 30.2 pg (25.0-34.0); Mean Corpuscular Hgb Conc 33.1 g/dL (32.0-36.0); Mean Corpuscular Volume 91.2 fL (80.0-100.0); Mean Platelet Volume 11.6 fL (9.4-12.4); Platelet Count 233 K/uL (130-400); RDW Coefficient of Variation 13.3 % (11.5-14.5); RDW Standard Deviation 43.1 fL (36.4-46.3); Red Blood Count 3.31 M/uL (4.20-5.40); White Blood Count 9.02 K/ul (4.8-10.8)
[2022-12-05] MEDS: INSULIN ASPART PER UNIT SC SCH ×4 (07:58→19:27)
[2022-12-05 08:29] LABS: BUN Creatinine Ratio 19.5 (10-20); Calcium 9.4 mg/dl (8.5-10.1); Creatinine Clr Calc Pharmacy 96.2 ml/min; Est GFR (African American) 88.3 ml/min; Est GFR (Non-African American) 76.2 ml/min; Potassium 4.1 mmol/L (3.5-5.1)
[2022-12-05] MEDS: LIDOCAINE 5% 1 PATCH TD SCH (08:33)
[2022-12-05] MEDS: POLYETHYLENE (MIRALAX) 17 GM PACK PO SCH (08:35)
[2022-12-05] MEDS: BACLOFEN 10 MG TAB PO SCH ×3 (08:35→19:53)
[2022-12-05] MEDS: ASPIRIN 325 MG ECTAB PO SCH (08:37)
[2022-12-05] MEDS: METOPROLOL TARTRATE 25 MG TAB PO SCH ×2 (08:37→19:39)
[2022-12-05] MEDS: MAGNESIUM OXIDE 400 MG TAB PO SCH (08:37)
[2022-12-05] MEDS: PANTOprazole 40 MG TAB PO SCH (08:37)
[2022-12-05] MEDS: FERROUS SULFATE 325 MG TAB PO SCH (08:37)
[2022-12-05] MEDS: LANTUS PER UNIT CHARGE SQ SCH ×2 (08:42→19:26)
[2022-12-05] MEDS: POTASSIUM CHLORIDE CRTAB 20 MEQ TABCR PO SCH (08:42)
[2022-12-05] MEDS: PROCHLORPERAZINE 5 MG in SYRINGE 4 ML IV PRN (12:44)
[2022-12-05] MEDS: DOCUSATE SODIUM/SENNA 50/8.6MG TAB PO SCH (19:39)
[2022-12-05] MEDS: ATORVASTATIN 10 MG TAB PO SCH (19:40)
[2022-12-05] MEDS: HYDROXYCHLOROQUINE SULFATE 200 MG TAB PO SCH (19:40)
[2022-12-05] MEDS: FAMOTIDINE 40 MG TABLET PO SCH (19:40)
--- NOTE | 2022-12-05 22:29 | Hospitalist Progress Note ---
Date of Service December 05, 2022 Assessment & Plan (1) Atrial fibrillation: Plan: Acute moderate risk uncontrolled Found on morning vital signs and confirmed by EKG, rate reduced with volume resuscitation but atrial fibrillation persists. Patient transferred to higher level of care on 11/30/2022. Metoprolol tartrate 12.5 mg p.o. given with concern his blood pressures are low but stable. Parenteral metoprolol available Patient is also on Synthroid with last TSH checked last summer TSH returned back in the afternoon of 12/01/2022 showed suppressed TSH and elevated T4 or likely from over replacement. Subsequently her Synthroid is stopped on 12/02 likely will need a day or 2 to drift downwards and restarted at a lower level with close outpatient follow-up. Hemoglobin is stable on 12/03. will recheck in afternoon and in AM. Patient switched to sinus rhythm overnight on 12/02 Patient remains in sinus. becka hold aspirin and start eliquis in AM. will consider adding aspirin at discharge. (2) Intertrochanteric fracture of left hip: Plan: acute significant risk -The patient sustained a mechanical fall from standing this am, now with a Comminuted, angulated, and displaced intertrochanteric/subtrochanteric fracture of the proximal left femur. - -Dr. Manuel performed surgery on 11/30/2022 Left Trochanteric Femoral Nail hold her Aspirin -Pain control with the following: >650 mg PO tylenol q6h >10 mg PO baclofen TID >Oxycodone 5 mg PO IR q4h prn pain 4,5,6+ >Ice and lidocaine patch to the affected area Eliquis a day for DVT prevention as recommended by surgeon does have post operative acute blood loss anemia and acute kidney injury Ordered mirlax on 12/02 due to constipation. -Patient reports she is passing gas. (3) Diabetes: Plan: chronic and stable , will need acute management in perioperative period -Holding metformin and semaglutide -Will monitor BSG ACHS, goal is 110-140 -Will start with 5 units lantus BID, correction factor of 40 and carb ratio of 15 (4) Hypothyroidism: Plan: chronic and stable Continue levothyroxine , will check tsh and T4 (5) Asthma: Plan: chronic and -Stable on RA - prn albuterol (6) GERD (gastroesophageal reflux disease): Plan: -Continue famotidine (7) Hypertension: Plan: -Will hold hydrochlorothiazide, and lisinopri additional ivf BP is at goal on 12/04 (8) Hyperlipidemia: Plan: -Continue atorvastatin (9) Rheumatoid arthritis: Plan: -Chronic and stable, Patient currently on Hydroxychloroquine, will continue her 400 mg PO Qpm Admission and Anticipated Discharge Date Admission Date: November 29, 2022 Subjective Patient reports having nausea today. She felt improvement once she had a BM today. Review of Systems Review of Systems: All systems reviewed & are unremarkable except as noted in HPI & below Physical Exam Physical Exam: Awake alert appropriate. Pain is controlled. Patient is pale has pale conjunctiva in the palmar creases Exam is tachycardic and irregular Lungs are clear without wheezes or crackles Extremities without edema good distal sensation on the operated leg which is the left. Results & Data Results & Data ([facility]) Vital Signs (Past 12 Hours) Vital Signs Temp Pulse Pulse Resp BP Pulse Ox O2 Del Method 12/05/22 19:00 36.5 C 68 20 123/75 96 Room Air 12/05/22 15:38 36.8 C 67 18 131/81 93 Room Air 12/05/22 11:30 36.7 C 78 18 121/78 98 Room Air PG Care Time/CCT Total # of Minutes Spent Total Time Spent with Patient: Total time spent is greater than 50% in coordination of care (as documented) at patient's floor/unit and/or counseling patient: Coding Level of Care Code 13743 SUB INP/OBS CARE 2/35MIN Diagnoses Atrial fibrillation I48.91 Intertrochanteric fracture of left hip S72.142A Diabetes E11.9 Diabetes mellitus type: type 2 Diabetes mellitus complication status: with hyperglycemia Hypothyroidism E03.9 Asthma J45.909 GERD (gastroesophageal reflux disease) K21.9 Hypertension I10 Hyperlipidemia E78.5 Rheumatoid arthritis M06.9 (3) Diabetes Diabetes mellitus type: type 2 Diabetes mellitus complication status: with hyperglycemia
[2022-12-06] MEDS: ACETAMINOPHEN 500 MG TAB PO SCH ×3 (07:18→23:05)
[2022-12-06 07:53] LABS: Hematocrit (blood only) 30.9 % (37.0-47.0); Mean Corpuscular Hgb Conc 32.4 g/dL (32.0-36.0); Mean Corpuscular Volume 95.7 fL (80.0-100.0); Mean Platelet Volume 11.2 fL (9.4-12.4); Platelet Count 227 K/uL (130-400); RDW Coefficient of Variation 13.7 % (11.5-14.5); RDW Standard Deviation 46.8 fL (36.4-46.3); Red Blood Count 3.23 M/uL (4.20-5.40); White Blood Count 9.92 K/ul (4.8-10.8)
[2022-12-06] MEDS: INSULIN ASPART PER UNIT SC SCH ×4 (08:06→20:47)
[2022-12-06 08:18] LABS: BUN Creatinine Ratio 21.1 (10-20); Calcium 9.3 mg/dl (8.5-10.1); Est GFR (African American) 78.9 ml/min; Potassium 4.1 mmol/L (3.5-5.1)
[2022-12-06] MEDS: LANTUS PER UNIT CHARGE SQ SCH ×2 (09:17→20:47)
[2022-12-06] MEDS: APIXABAN 5 MG TABLET PO SCH ×2 (09:20→20:48)
[2022-12-06] MEDS: FERROUS SULFATE 325 MG TAB PO SCH (09:20)
[2022-12-06] MEDS: METOPROLOL TARTRATE 25 MG TAB PO SCH ×2 (09:20→20:48)
[2022-12-06] MEDS: LIDOCAINE 5% 1 PATCH TD SCH (09:20)
[2022-12-06] MEDS: POTASSIUM CHLORIDE CRTAB 20 MEQ TABCR PO SCH (09:20)
[2022-12-06] MEDS: POLYETHYLENE (MIRALAX) 17 GM PACK PO SCH (09:20)
[2022-12-06] MEDS: MAGNESIUM OXIDE 400 MG TAB PO SCH (09:20)
[2022-12-06] MEDS: BACLOFEN 10 MG TAB PO SCH ×3 (09:20→20:47)
[2022-12-06] MEDS: traMADol HCL 50 MG TABLET PO PRN ×2 (09:21→22:00)
[2022-12-06] MEDS: PANTOprazole 40 MG TAB PO SCH (09:21)
[2022-12-06] MEDS: PROCHLORPERAZINE 5 MG in SYRINGE 4 ML IV PRN (10:44)
--- NOTE | 2022-12-06 16:29 | Hospitalist Progress Note ---
Date of Service December 06, 2022 Assessment & Plan (1) Atrial fibrillation: Plan: Acute moderate risk uncontrolled Found on morning vital signs and confirmed by EKG, rate reduced with volume resuscitation but atrial fibrillation persists. Patient transferred to higher level of care on 11/30/2022. Metoprolol tartrate 12.5 mg p.o. given with concern his blood pressures are low but stable. Parenteral metoprolol available Patient is also on Synthroid with last TSH checked last summer TSH returned back in the afternoon of 12/01/2022 showed suppressed TSH and elevated T4 or likely from over replacement. Subsequently her Synthroid is stopped on 12/02 likely will need a day or 2 to drift downwards and restarted at a lower level with close outpatient follow-up. Hemoglobin is stable on 12/06 Patient switched to sinus rhythm overnight on 12/02 Patient remains in sinus. will continue eliquis. will defer to PCP adding aspirin at discharge. will transfer to Medical on 12/06 (2) Intertrochanteric fracture of left hip: Plan: acute significant risk -The patient sustained a mechanical fall from standing this am, now with a Comminuted, angulated, and displaced intertrochanteric/subtrochanteric fracture of the proximal left femur. - -Dr. Manuel performed surgery on 11/30/2022 Left Trochanteric Femoral Nail hold her Aspirin -Pain control with the following: >650 mg PO tylenol q6h >10 mg PO baclofen TID >Oxycodone 5 mg PO IR q4h prn pain 4,5,6+ >Ice and lidocaine patch to the affected area Eliquis a day for DVT prevention as recommended by surgeon does have post operative acute blood loss anemia and acute kidney injury Ordered mirlax on 12/02 due to constipation. -Patient reports she is passing gas. (3) Diabetes: Plan: chronic and stable , will need acute management in perioperative period -Holding metformin and semaglutide -Will monitor BSG ACHS, goal is 110-140 -Will start with 5 units lantus BID, correction factor of 40 and carb ratio of 15 (4) Hypothyroidism: Plan: chronic and stable Continue levothyroxine , will check tsh and T4 (5) Asthma: Plan: chronic and -Stable on RA - prn albuterol (6) GERD (gastroesophageal reflux disease): Plan: -Continue famotidine (7) Hypertension: Plan: -Will hold hydrochlorothiazide, and lisinopri additional ivf BP is at goal on 12/06 (8) Hyperlipidemia: Plan: -Continue atorvastatin (9) Rheumatoid arthritis: Plan: -Chronic and stable, Patient currently on Hydroxychloroquine, will continue her 400 mg PO Qpm Admission and Anticipated Discharge Date Admission Date: November 29, 2022 Subjective 62 yo female reports no new symptoms. Review of Systems Review of Systems: All systems reviewed & are unremarkable except as noted in HPI & below Physical Exam Physical Exam: Awake alert appropriate. Pain is controlled. Patient is pale has pale conjunctiva in the palmar creases Exam is regular rate and rhythm Lungs are clear without wheezes or crackles Extremities without edema good distal sensation on the operated leg which is the left. Results & Data Results & Data ([facility]) Vital Signs (Past 12 Hours) Vital Signs Temp Pulse Resp BP Pulse Ox O2 Del Method 12/06/22 15:34 36.9 C 69 18 126/64 99 Room Air 12/06/22 10:47 36.7 C 66 18 110/72 98 Room Air 12/06/22 06:42 36.7 C 63 18 114/62 96 Room Air PG Care Time/CCT Total # of Minutes Spent Total Time Spent with Patient: Total time spent is greater than 50% in coordination of care (as documented) at patient's floor/unit and/or counseling patient: Coding Level of Care Code 79730 SUB INP/OBS CARE 35MIN Diagnoses Atrial fibrillation I48.91 Intertrochanteric fracture of left hip S72.142A Diabetes E11.9 Diabetes mellitus complication status: with hyperglycemia Diabetes mellitus type: type 2 Hypothyroidism E03.9 Asthma J45.909 GERD (gastroesophageal reflux disease) K21.9 Hypertension I10 Hyperlipidemia E78.5 Rheumatoid arthritis M06.9 (3) Diabetes Diabetes mellitus complication status: with hyperglycemia Diabetes mellitus type: type 2
[2022-12-06] MEDS: HYDROXYCHLOROQUINE SULFATE 200 MG TAB PO SCH (20:47)
[2022-12-06] MEDS: FAMOTIDINE 40 MG TABLET PO SCH (20:48)
[2022-12-06] MEDS: ATORVASTATIN 10 MG TAB PO SCH (20:48)
[2022-12-06] MEDS: DOCUSATE SODIUM/SENNA 50/8.6MG TAB PO SCH (20:50)
[2022-12-07] MEDS: traMADol HCL 50 MG TABLET PO PRN ×4 (04:06→23:33)
[2022-12-07] MEDS: MAGNESIUM OXIDE 400 MG TAB PO SCH (09:05)
[2022-12-07] MEDS: POTASSIUM CHLORIDE CRTAB 20 MEQ TABCR PO SCH (09:05)
[2022-12-07] MEDS: METOPROLOL TARTRATE 25 MG TAB PO SCH ×2 (09:05→20:36)
[2022-12-07] MEDS: ACETAMINOPHEN 500 MG TAB PO SCH ×3 (09:05→23:33)
[2022-12-07] MEDS: LIDOCAINE 5% 1 PATCH TD SCH (09:05)
[2022-12-07] MEDS: PANTOprazole 40 MG TAB PO SCH (09:05)
[2022-12-07] MEDS: FERROUS SULFATE 325 MG TAB PO SCH (09:05)
[2022-12-07] MEDS: APIXABAN 5 MG TABLET PO SCH ×2 (09:05→20:35)
[2022-12-07] MEDS: POLYETHYLENE (MIRALAX) 17 GM PACK PO SCH (09:05)
[2022-12-07] MEDS: BACLOFEN 10 MG TAB PO SCH ×3 (09:10→20:36)
[2022-12-07] MEDS: LANTUS PER UNIT CHARGE SQ SCH ×2 (10:13→20:37)
[2022-12-07] MEDS: INSULIN ASPART PER UNIT SC SCH ×4 (10:13→20:37)
--- NOTE | 2022-12-07 13:03 | Hospitalist Progress Note ---
Date of Service December 07, 2022 Assessment & Plan (1) Atrial fibrillation: Plan: Acute moderate risk uncontrolled Found on morning vital signs and confirmed by EKG, rate reduced with volume resuscitation but atrial fibrillation persists. Patient transferred to higher level of care on 11/30/2022. Metoprolol tartrate 12.5 mg p.o. given with concern his blood pressures are low but stable. Parenteral metoprolol available Patient is also on Synthroid with last TSH checked last summer TSH returned back in the afternoon of 12/01/2022 showed suppressed TSH and elevated T4 or likely from over replacement. Subsequently her Synthroid is stopped on 12/02 likely will need a day or 2 to drift downwards and restarted at a lower level with close outpatient follow-up. Hemoglobin is stable on 12/06 Patient switched to sinus rhythm overnight on 12/02 Patient remains in sinus. will continue eliquis. will defer to PCP adding aspirin at discharge. will transfer to Medical on 12/06 Patient's HR remains stable. will continue eliquis. (2) Intertrochanteric fracture of left hip: Plan: acute significant risk -The patient sustained a mechanical fall from standing this am, now with a Comminuted, angulated, and displaced intertrochanteric/subtrochanteric fracture of the proximal left femur. - -Dr. Manuel performed surgery on 11/30/2022 Left Trochanteric Femoral Nail hold her Aspirin -Pain control with the following: >650 mg PO tylenol q6h >10 mg PO baclofen TID >Oxycodone 5 mg PO IR q4h prn pain 4,5,6+ >Ice and lidocaine patch to the affected area Eliquis a day for DVT prevention as recommended by surgeon does have post operative acute blood loss anemia and acute kidney injury Ordered mirlax on 12/02 due to constipation. -Patient reports she is passing gas. (3) Diabetes: Plan: chronic and stable , will need acute management in perioperative period -Holding metformin and semaglutide -Will monitor BSG ACHS, goal is 110-140 -Will start with 5 units lantus BID, correction factor of 40 and carb ratio of 15 (4) Hypothyroidism: Plan: chronic and stable Continue levothyroxine , will check tsh and T4 (5) Asthma: Plan: chronic and -Stable on RA - prn albuterol (6) GERD (gastroesophageal reflux disease): Plan: -Continue famotidine (7) Hypertension: Plan: -Will hold hydrochlorothiazide, and lisinopri additional ivf BP is at goal on 12/06 (8) Hyperlipidemia: Plan: -Continue atorvastatin (9) Rheumatoid arthritis: Plan: -Chronic and stable, Patient currently on Hydroxychloroquine, will continue her 400 mg PO Qpm Admission and Anticipated Discharge Date Admission Date: November 29, 2022 Subjective Patient reports feeling well. She has no new complaints. Review of Systems Review of Systems: All systems reviewed & are unremarkable except as noted in HPI & below Physical Exam Physical Exam: Awake alert appropriate. Pain is controlled. Patient is pale has pale conjunctiva in the palmar creases Exam is regular rate and rhythm Lungs are clear without wheezes or crackles Extremities without edema good distal sensation on the operated leg which is the left. Results & Data Results & Data ([facility]) Vital Signs (Past 12 Hours) Vital Signs Temp Pulse Resp BP Pulse Ox O2 Del Method 12/07/22 07:38 36.6 C 65 16 122/77 96 Room Air PG Care Time/CCT Total # of Minutes Spent Total Time Spent with Patient: Total time spent is greater than 50% in coordination of care (as documented) at patient's floor/unit and/or counseling patient: Coding Level of Care Code 39701 SUB INP/OBS CARE MIN Diagnoses Atrial fibrillation I48.91 Intertrochanteric fracture of left hip S72.142A Diabetes E11.9 Diabetes mellitus type: type 2 Diabetes mellitus complication status: with hyperglycemia Hypothyroidism E03.9 Asthma J45.909 GERD (gastroesophageal reflux disease) K21.9 Hypertension I10 Hyperlipidemia E78.5 Rheumatoid arthritis M06.9 (3) Diabetes Diabetes mellitus type: type 2 Diabetes mellitus complication status: with hyperglycemia
[2022-12-07] MEDS: FAMOTIDINE 40 MG TABLET PO SCH (20:35)
[2022-12-07] MEDS: DOCUSATE SODIUM/SENNA 50/8.6MG TAB PO SCH (20:35)
[2022-12-07] MEDS: HYDROXYCHLOROQUINE SULFATE 200 MG TAB PO SCH (20:35)
[2022-12-07] MEDS: ATORVASTATIN 10 MG TAB PO SCH (20:36)
[2022-12-08] MEDS: traMADol HCL 50 MG TABLET PO PRN ×3 (06:17→21:39)
[2022-12-08 07:07] LABS: Creatinine Clr Calc Pharmacy 85.1 ml/min; Est GFR (African American) 75.8 ml/min; Est GFR (Non-African American) 65.4 ml/min
[2022-12-08] MEDS: POTASSIUM CHLORIDE CRTAB 20 MEQ TABCR PO SCH (08:26)
[2022-12-08] MEDS: FERROUS SULFATE 325 MG TAB PO SCH (08:27)
[2022-12-08] MEDS: METOPROLOL TARTRATE 25 MG TAB PO SCH ×2 (08:27→21:36)
[2022-12-08] MEDS: POLYETHYLENE (MIRALAX) 17 GM PACK PO SCH (08:27)
[2022-12-08] MEDS: MAGNESIUM OXIDE 400 MG TAB PO SCH (08:27)
[2022-12-08] MEDS: PANTOprazole 40 MG TAB PO SCH (08:27)
[2022-12-08] MEDS: BACLOFEN 10 MG TAB PO SCH ×3 (08:27→21:36)
[2022-12-08] MEDS: LIDOCAINE 5% 1 PATCH TD SCH (08:27)
[2022-12-08] MEDS: APIXABAN 5 MG TABLET PO SCH ×2 (08:27→21:37)
[2022-12-08] MEDS: ACETAMINOPHEN 500 MG TAB PO SCH ×2 (08:28→15:13)
[2022-12-08] MEDS: LANTUS PER UNIT CHARGE SQ SCH ×2 (08:55→21:44)
[2022-12-08] MEDS: INSULIN ASPART PER UNIT SC SCH ×4 (08:56→21:45)
--- NOTE | 2022-12-08 10:12 | Hospitalist Progress Note ---
Date of Service December 08, 2022 Assessment & Plan (1) Atrial fibrillation: Plan: Acute moderate risk uncontrolled Found on morning vital signs and confirmed by EKG, rate reduced with volume resuscitation but atrial fibrillation persists. Patient transferred to higher level of care on 11/30/2022. Metoprolol tartrate 12.5 mg p.o. given with concern his blood pressures are low but stable. Parenteral metoprolol available Hemoglobin is stable on 12/06 Patient switched to sinus rhythm overnight on 12/02 Patient remains in sinus. will continue eliquis. will defer to PCP adding aspirin at discharge. Has been in medical since 12/06 Patient's HR remains stable. will continue eliquis. (2) Intertrochanteric fracture of left hip: Plan: acute significant risk -The patient sustained a mechanical fall from standing this am, now with a Comminuted, angulated, and displaced intertrochanteric/subtrochanteric fracture of the proximal left femur. - -Dr. Manuel performed surgery on 11/30/2022 Left Trochanteric Femoral Nail hold her Aspirin -Pain control with the following: >650 mg PO tylenol q6h >10 mg PO baclofen TID >Oxycodone 5 mg PO IR q4h prn pain 4,5,6+ >Ice and lidocaine patch to the affected area Eliquis a day for DVT prevention as recommended by surgeon does have post operative acute blood loss anemia and acute kidney injury Ordered mirlax on 12/02 due to constipation. -Patient reports she is passing gas. (3) Diabetes: Plan: chronic and stable , will need acute management in perioperative period -Holding metformin and semaglutide -Will monitor BSG ACHS, goal is 110-140 -Will start with 5 units lantus BID, correction factor of 40 and carb ratio of 15 (4) Hypothyroidism: Plan: Patient is also on Synthroid with last TSH checked last summer TSH returned back in the afternoon of 12/01/2022 showed suppressed TSH and elevated T4 or likely f rom over replacement. Subsequently her Synthroid is stopped on 12/02 Patient resumed at 300 mcg on 12/08 and will continue dose at 150 mcg going forward. (5) Asthma: Plan: chronic and -Stable on RA - prn albuterol (6) GERD (gastroesophageal reflux disease): Plan: -Continue famotidine (7) Hypertension: Plan: -will resume lisinopril as BP has been slightly elevated on 12/08, but will likely hold HCTZ moving forward. (8) Hyperlipidemia: Plan: -Continue atorvastatin (9) Rheumatoid arthritis: Plan: -Chronic and stable, Patient currently on Hydroxychloroquine, will continue her 400 mg PO Qpm Admission and Anticipated Discharge Date Admission Date: November 29, 2022 Subjective 62 yo female reports no new complaints. She is tolerating the Eliquis. She denies any nausea, vomiting, diarrhea. She is moving her bowels well. Her pain is also managed. Review of Systems Review of Systems: All systems reviewed & are unremarkable except as noted in HPI & below Physical Exam Physical Exam: Awake alert appropriate. Pain is controlled. Patient has good color, no longer pale. Exam is regular rate and rhythm Lungs are clear without wheezes or crackles Extremities without edema good distal sensation on the operated leg which is the left. Ecchymosis noted on left lower leg. Results & Data Results & Data ([facility]) Vital Signs (Past 12 Hours) Vital Signs Temp Pulse Resp BP Pulse Ox O2 Del Method 12/08/22 07:59 36.8 C 66 16 142/83 H 95 Room Air PG Care Time/CCT Total # of Minutes Spent Total Time Spent with Patient: Total time spent is greater than 50% in coordination of care (as documented) at patient's floor/unit and/or counseling patient: Coding Level of Care Code 39680 SUB INP/OBS CARE 3/50MIN Diagnoses Atrial fibrillation I48.91 Intertrochanteric fracture of left hip S72.142A Diabetes E11.9 Diabetes mellitus type: type 2 Diabetes mellitus complication status: with hyperglycemia Hypothyroidism E03.9 Asthma J45.909 GERD (gastroesophageal reflux disease) K21.9 Hypertension I10 Hyperlipidemia E78.5 Rheumatoid arthritis M06.9 (3) Diabetes Diabetes mellitus type: type 2 Diabetes mellitus complication status: with hyperglycemia
[2022-12-08] MEDS ORDERED: LEVOTHYROXINE SODIUM 150 MCG TABLET PO ONE (10:18)
[2022-12-08 11:11] LABS: Hematocrit (blood only) 31.7 % (37.0-47.0); Hemoglobin 10.1 g/dl (12.0-16.0); Mean Corpuscular Hemoglobin 30.7 pg (25.0-34.0); Mean Corpuscular Hgb Conc 31.9 g/dL (32.0-36.0); Mean Corpuscular Volume 96.4 fL (80.0-100.0); Mean Platelet Volume 11.8 fL (9.4-12.4); Platelet Count 290 K/uL (130-400); RDW Coefficient of Variation 14.3 % (11.5-14.5); RDW Standard Deviation 48.7 fL (36.4-46.3); Red Blood Count 3.29 M/uL (4.20-5.40); White Blood Count 10.71 K/ul (4.8-10.8)
[2022-12-08 11:19] LABS: Albumin Level 3.5 gm/dl (3.4-5.0); BUN Creatinine Ratio 19.8 (10-20); Bilirubin Direct 0.3 mg/dl (0-0.2); Bilirubin,Total 1.4 mg/dl (0.2-1.0); Calcium 9.5 mg/dl (8.5-10.1); Creatinine Clr Calc Pharmacy 68.3 ml/min; Est GFR (Non-African American) 50.1 ml/min; Potassium 4.2 mmol/L (3.5-5.1); Total Protein 6.8 gm/dl (6.0-8.3)
[2022-12-08] MEDS: lisinopril 10 MG TAB PO SCH (11:21)
[2022-12-08] MEDS: ATORVASTATIN 10 MG TAB PO SCH (21:37)
[2022-12-08] MEDS: FAMOTIDINE 40 MG TABLET PO SCH (21:37)
[2022-12-08] MEDS: HYDROXYCHLOROQUINE SULFATE 200 MG TAB PO SCH (21:37)
[2022-12-08] MEDS: DOCUSATE SODIUM/SENNA 50/8.6MG TAB PO SCH (21:38)
[2022-12-09] MEDS: ACETAMINOPHEN 500 MG TAB PO SCH ×4 (00:15→23:06)
[2022-12-09] MEDS: traMADol HCL 50 MG TABLET PO PRN ×3 (04:02→18:27)
[2022-12-09] MEDS: LEVOTHYROXINE SODIUM 150 MCG TABLET PO SCH (06:08)
[2022-12-09] MEDS: APIXABAN 5 MG TABLET PO SCH ×2 (08:46→20:33)
[2022-12-09] MEDS: LIDOCAINE 5% 1 PATCH TD SCH (08:46)
[2022-12-09] MEDS: lisinopril 10 MG TAB PO SCH (08:46)
[2022-12-09] MEDS: BACLOFEN 10 MG TAB PO SCH ×3 (08:47→20:33)
[2022-12-09] MEDS: METOPROLOL TARTRATE 25 MG TAB PO SCH ×2 (08:47→20:33)
[2022-12-09] MEDS: FERROUS SULFATE 325 MG TAB PO SCH (08:47)
[2022-12-09] MEDS: PANTOprazole 40 MG TAB PO SCH (08:47)
[2022-12-09] MEDS: POLYETHYLENE (MIRALAX) 17 GM PACK PO SCH (08:47)
[2022-12-09] MEDS: MAGNESIUM OXIDE 400 MG TAB PO SCH (08:47)
[2022-12-09] MEDS: POTASSIUM CHLORIDE CRTAB 20 MEQ TABCR PO SCH (08:50)
[2022-12-09] MEDS: INSULIN ASPART PER UNIT SC SCH ×4 (08:51→20:33)
[2022-12-09] MEDS: LANTUS PER UNIT CHARGE SQ SCH ×2 (08:51→20:37)
--- NOTE | 2022-12-09 08:55 | Hospitalist Progress Note ---
Date of Service December 09, 2022 Assessment & Plan (1) Atrial fibrillation: Plan: Acute moderate risk now resolved and returned to NSR Metoprolol tartrate 25 mg bid continue eliquis. (2) Intertrochanteric fracture of left hip: Plan: acute significant risk -The patient sustained a mechanical fall from standing this am, with a Comminuted, angulated, and displaced intertrochanteric/subtrochanteric fracture of the proximal left femur. - -Dr. Manuel performed surgery on 11/30/2022 Left Trochanteric Femoral Nail holding her Aspirin in face of eliquis for afib, if remains in nsr can consider stopping eilquis after one month Eliquis a day for DVT prevention as recommended by surgeon does have post operative acute blood loss anemia and acute kidney injury (3) Diabetes: Plan: chronic and stable , will need acute management in perioperative period -Holding metformin and semaglutide -Will monitor BSG ACHS, goal is 110-140 - 5 units lantus BID, correction factor of 40 and carb ratio of 15 [id number] glucoses are acceptable (4) Hypothyroidism: Plan: acute hyperthyroidism, due to over replacement Patient is also on Synthroid with last TSH checked last summer TSH returned back in the afternoon of 12/01/2022 showed suppressed TSH and elevated T4 or likely from over replacement. Subsequently her Synthroid was held for one week resumed at 150 mcg going forward. (5) Asthma: Plan: chronic and -Stable on RA - prn albuterol (6) GERD (gastroesophageal reflux disease): Plan: Chronic stable asymptomatic continue famotidine (7) Hypertension: Plan: -Chronic adjusted medications, resume lisinopril as BP has been slightly elevated on 12/08, but will likely hold HCTZ moving forward. (8) Hyperlipidemia: Plan: -Chronic and stable continue atorvastatin (9) Rheumatoid arthritis: Plan: -Chronic and stable, Patient currently on Hydroxychloroquine, will continue her 400 mg PO Qpm Admission and Anticipated Discharge Date Admission Date: November 29, 2022 Subjective Patient very pleasant sitting in room she is awaiting final determination for rehabilitation Physical Exam Physical Exam: Awake alert appropriate cardiac exam is regular although she had history of A- fib early to stay converted to sinus rhythm Lungs are clear. Left distal extremities with good pulses capillary refill and sensation Results & Data Results & Data ([facility]) Vital Signs (Past 12 Hours) Vital Signs Temp Pulse Resp BP BP Pulse Ox O2 Del Method 12/09/22 07:40 98.1 F 74 18 124/69 97 Room Air 12/08/22 23:46 98.1 F 73 17 117/67 96 Room Air Laboratory Results Reviewed [id number] glucoses PG Care Time/CCT Total # of Minutes Spent Total Time Spent with Patient: Total time spent is greater than 50% in coordination of care (as documented) at patient's floor/unit and/or counseling patient: Coding Level of Care Code 81309 SUB INP/OBS CARE 2/35MIN Diagnoses Atrial fibrillation I48.91 Intertrochanteric fracture of left hip S72.142A Diabetes E11.9 Diabetes mellitus complication status: with hyperglycemia Diabetes mellitus type: type 2 Hypothyroidism E03.9 Asthma J45.909 GERD (gastroesophageal reflux disease) K21.9 Hypertension I10 Hyperlipidemia E78.5 Rheumatoid arthritis M06.9 (3) Diabetes Diabetes mellitus complication status: with hyperglycemia Diabetes mellitus type: type 2
[2022-12-09] MEDS: FAMOTIDINE 40 MG TABLET PO SCH (20:33)
[2022-12-09] MEDS: DOCUSATE SODIUM/SENNA 50/8.6MG TAB PO SCH (20:33)
[2022-12-09] MEDS: ATORVASTATIN 10 MG TAB PO SCH (20:33)
[2022-12-09] MEDS: HYDROXYCHLOROQUINE SULFATE 200 MG TAB PO SCH (20:33)
[2022-12-10] MEDS: traMADol HCL 50 MG TABLET PO PRN ×5 (02:16→20:50)
[2022-12-10] MEDS: LEVOTHYROXINE SODIUM 150 MCG TABLET PO SCH (06:25)
[2022-12-10] MEDS: ACETAMINOPHEN 500 MG TAB PO SCH ×3 (08:20→23:45)
[2022-12-10] MEDS: APIXABAN 5 MG TABLET PO SCH ×2 (08:21→20:01)
[2022-12-10] MEDS: BACLOFEN 10 MG TAB PO SCH ×3 (08:22→20:00)
[2022-12-10] MEDS: FERROUS SULFATE 325 MG TAB PO SCH (08:22)
[2022-12-10] MEDS: lisinopril 10 MG TAB PO SCH (08:23)
[2022-12-10] MEDS: MAGNESIUM OXIDE 400 MG TAB PO SCH (08:25)
[2022-12-10] MEDS: METOPROLOL TARTRATE 25 MG TAB PO SCH ×2 (08:25→20:47)
[2022-12-10] MEDS: POTASSIUM CHLORIDE CRTAB 20 MEQ TABCR PO SCH (08:26)
[2022-12-10] MEDS: PANTOprazole 40 MG TAB PO SCH (08:26)
[2022-12-10] MEDS: POLYETHYLENE (MIRALAX) 17 GM PACK PO SCH (08:27)
[2022-12-10] MEDS: LIDOCAINE 5% 1 PATCH TD SCH (08:28)
[2022-12-10] MEDS: INSULIN ASPART PER UNIT SC SCH ×4 (09:13→20:47)
[2022-12-10] MEDS: LANTUS PER UNIT CHARGE SQ SCH ×2 (09:14→20:47)
[2022-12-10] MEDS ORDERED: traMADol HCL 50 MG TABLET PO STA (14:18)
--- NOTE | 2022-12-10 16:39 | Hospitalist Progress Note ---
Date of Service December 10, 2022 Assessment & Plan (1) Atrial fibrillation: Plan: Acute moderate risk now resolved and returned to NSR Metoprolol tartrate 25 mg bid continue eliquis. (2) Intertrochanteric fracture of left hip: Plan: acute significant risk now resolved -The patient sustained a mechanical fall from standing day of admission, with a Comminuted, angulated, and displaced intertrochanteric/subtrochanteric fracture of the proximal left femur. - -Dr. Manuel performed surgery on 11/30/2022 Left Trochanteric Femoral Nail holding her Aspirin in face of eliquis for afib, if remains in nsr can consider stopping eilquis after one month Will increase Ultram dosing as needed at this time Eliquis a day for DVT prevention as recommended by surgeon does have post operative acute blood loss anemia and acute kidney injury (3) Diabetes: Plan: chronic and stable , will need acute management in perioperative period -Holding metformin and semaglutide -Will monitor BSG ACHS, goal is 110-140 - 5 units lantus BID, correction factor of 40 and carb ratio of 15 vhfnf-vb-tecn glucoses are acceptable (4) Hypothyroidism: Plan: acute hyperthyroidism, due to over replacement Patient is also on Synthroid with last TSH checked last summer TSH returned back in the afternoon of 12/01/2022 showed suppressed TSH and elevated T4 or likely from over replacement. Subsequently her Synthroid was held for one week resumed at 150 mcg going forward. (5) Asthma: Plan: chronic and -Stable on RA - prn albuterol (6) GERD (gastroesophageal reflux disease): Plan: Chronic stable asymptomatic continue famotidine (7) Hypertension: Plan: -Chronic stable adjusted medications, resume lisinopril as BP has been slightly elevated on 12/08, but will likely hold HCTZ moving forward. (8) Hyperlipidemia: Plan: -Chronic and stable continue atorvastatin (9) Rheumatoid arthritis: Plan: -Chronic and stable, Patient currently on Hydroxychloroquine, will continue her 400 mg PO Qpm Admission and Anticipated Discharge Date Admission Date: November 29, 2022 Subjective Patient very pleasant sitting in room she is awaiting final determination for rehabilitation Patient having increased pain at her surgical site after exercise requesting increased dose of Ultram will comply Physical Exam Physical Exam: Awake alert appropriate cardiac exam is regular although she had history of A- fib early to stay converted to sinus rhythm Lungs are clear. Left distal extremities with good pulses capillary refill and sensation Results & Data Results & Data ([facility]) Vital Signs (Past 12 Hours) Vital Signs Temp Pulse Pulse Resp BP Pulse Ox O2 Del Method 12/10/22 14:42 98.2 F 62 18 116/75 98 Room Air 12/10/22 08:00 97.9 F 61 16 142/86 H 99 Room Air PG Care Time/CCT Total # of Minutes Spent Total Time Spent with Patient: Total time spent is greater than 50% in coordination of care (as documented) at patient's floor/unit and/or counseling patient: Coding Level of Care Code 62862 SUB INP/OBS CARE 11/03MIN Diagnoses Atrial fibrillation I48.91 Intertrochanteric fracture of left hip S72.142A Diabetes E11.9 Diabetes mellitus type: type 2 Diabetes mellitus complication status: with hyperglycemia Hypothyroidism E03.9 Asthma J45.909 GERD (gastroesophageal reflux disease) K21.9 Hypertension I10 Hyperlipidemia E78.5 Rheumatoid arthritis M06.9 (3) Diabetes Diabetes mellitus type: type 2 Diabetes mellitus complication status: with hyperglycemia
[2022-12-10] MEDS: DOCUSATE SODIUM/SENNA 50/8.6MG TAB PO SCH (20:00)
[2022-12-10] MEDS: ATORVASTATIN 10 MG TAB PO SCH (20:01)
[2022-12-10] MEDS: FAMOTIDINE 40 MG TABLET PO SCH (20:01)
[2022-12-10] MEDS: HYDROXYCHLOROQUINE SULFATE 200 MG TAB PO SCH (20:01)
[2022-12-11] MEDS: traMADol HCL 50 MG TABLET PO PRN ×4 (02:50→21:27)
[2022-12-11] MEDS: LEVOTHYROXINE SODIUM 150 MCG TABLET PO SCH (06:01)
[2022-12-11 06:14] LABS: Creatinine Clr Calc Pharmacy 72.6 ml/min; Est GFR (African American) 62.6 ml/min
[2022-12-11] MEDS: BACLOFEN 10 MG TAB PO SCH ×3 (07:31→21:04)
[2022-12-11] MEDS: ACETAMINOPHEN 500 MG TAB PO SCH ×3 (07:32→23:33)
[2022-12-11] MEDS: PANTOprazole 40 MG TAB PO SCH (08:56)
[2022-12-11] MEDS: POTASSIUM CHLORIDE CRTAB 20 MEQ TABCR PO SCH (08:57)
[2022-12-11] MEDS: MAGNESIUM OXIDE 400 MG TAB PO SCH (08:58)
[2022-12-11] MEDS: lisinopril 10 MG TAB PO SCH (08:59)
[2022-12-11] MEDS: FERROUS SULFATE 325 MG TAB PO SCH (09:00)
[2022-12-11] MEDS: APIXABAN 5 MG TABLET PO SCH ×2 (09:01→21:04)
[2022-12-11] MEDS: INSULIN ASPART PER UNIT SC SCH ×4 (09:02→21:09)
[2022-12-11] MEDS: LANTUS PER UNIT CHARGE SQ SCH ×2 (09:04→21:08)
[2022-12-11] MEDS: LIDOCAINE 5% 1 PATCH TD SCH (09:05)
[2022-12-11] MEDS: POLYETHYLENE (MIRALAX) 17 GM PACK PO SCH (09:06)
[2022-12-11] MEDS: METOPROLOL TARTRATE 25 MG TAB PO SCH ×2 (09:06→21:05)
--- NOTE | 2022-12-11 13:16 | Hospitalist Progress Note ---
Date of Service December 11, 2022 Assessment & Plan (1) Atrial fibrillation: Plan: Acute moderate risk now resolved and returned to NSR Metoprolol tartrate 25 mg bid continue eliquis. (2) Intertrochanteric fracture of left hip: Plan: acute significant risk now resolved -The patient sustained a mechanical fall from standing day of admission, with a Comminuted, angulated, and displaced intertrochanteric/subtrochanteric fracture of the proximal left femur. - -Dr. Manuel performed surgery on 11/30/2022 Left Trochanteric Femoral Nail holding her Aspirin in face of eliquis for afib, if remains in nsr can consider stopping eilquis after one month Good results after we did increase Ultram dosing to 100 as needed Eliquis a day for DVT prevention as recommended by surgeon does have post operative acute blood loss anemia and acute kidney injury ->acute kidney injury has resolved (3) Diabetes: Plan: chronic and stable , will need acute management in perioperative period -Holding metformin and semaglutide -Will monitor BSG ACHS, goal is 110-140 - 5 units lantus BID, correction factor of 40 and carb ratio of 15 abwnw-sa-hcyl glucoses are acceptable (4) Hypothyroidism: Plan: acute hyperthyroidism, due to over replacement Patient is also on Synthroid with last TSH checked last summer TSH returned back in the afternoon of 12/01/2022 showed suppressed TSH and elevated T4 or likely from over replacement. Subsequently her Synthroid was held for one week resumed at 150 mcg going forward. (5) Asthma: Plan: chronic and -Stable on RA - prn albuterol (6) GERD (gastroesophageal reflux disease): Plan: Chronic stable asymptomatic continue famotidine (7) Hypertension: Plan: -Chronic stable adjusted medications, resume lisinopril as BP has been slightly elevated on 12/08, but will likely hold HCTZ moving forward. (8) Hyperlipidemia: Plan: -Chronic and stable continue atorvastatin (9) Rheumatoid arthritis: Plan: -Chronic and stable, Patient currently on Hydroxychloroquine, will continue her 400 mg PO Qpm Admission and Anticipated Discharge Date Admission Date: November 29, 2022 Subjective Patient very pleasant sitting in room tentatively considering going to [facility] for rehabilitation on 12/13/2022 Postsurgical pain is controlled with increased dose of Ultram Physical Exam Physical Exam: Awake alert appropriate cardiac exam is regular although she had history of A- fib early to stay converted to sinus rhythm Lungs are clear. Left distal extremities with good pulses capillary refill and sensation Results & Data Results & Data ([facility]) Vital Signs (Past 12 Hours) Vital Signs Temp Pulse Pulse Resp BP Pulse Ox O2 Del Method 12/11/22 08:28 97.7 F 58 L 16 130/80 100 Room Air 12/11/22 07:29 97.9 F 61 16 132/79 97 Room Air PG Care Time/CCT Total # of Minutes Spent Total Time Spent with Patient: Total time spent is greater than 50% in coordination of care (as documented) at patient's floor/unit and/or counseling patient: Coding Level of Care Code 93543 SUB INP/OBS CARE 11/03MIN Diagnoses Atrial fibrillation I48.91 Intertrochanteric fracture of left hip S72.142A Diabetes E11.9 Diabetes mellitus type: type 2 Diabetes mellitus complication status: with hyperglycemia Hypothyroidism E03.9 Asthma J45.909 GERD (gastroesophageal reflux disease) K21.9 Hypertension I10 Hyperlipidemia E78.5 Rheumatoid arthritis M06.9 (3) Diabetes Diabetes mellitus type: type 2 Diabetes mellitus complication status: with hyperglycemia
[2022-12-11] MEDS: ATORVASTATIN 10 MG TAB PO SCH (21:04)
[2022-12-11] MEDS: DOCUSATE SODIUM/SENNA 50/8.6MG TAB PO SCH (21:05)
[2022-12-11] MEDS: HYDROXYCHLOROQUINE SULFATE 200 MG TAB PO SCH (21:05)
[2022-12-11] MEDS: FAMOTIDINE 40 MG TABLET PO SCH (21:05)
[2022-12-12] MEDS: traMADol HCL 50 MG TABLET PO PRN ×4 (03:29→21:48)
[2022-12-12 05:58] LABS: Hematocrit (blood only) 30.5 % (37.0-47.0); Hemoglobin 9.6 g/dl (12.0-16.0); Mean Corpuscular Hemoglobin 30.8 pg (25.0-34.0); Mean Corpuscular Hgb Conc 31.5 g/dL (32.0-36.0); Mean Corpuscular Volume 97.8 fL (80.0-100.0); Mean Platelet Volume 11.5 fL (9.4-12.4); Platelet Count 254 K/uL (130-400); RDW Coefficient of Variation 14.9 % (11.5-14.5); RDW Standard Deviation 52.6 fL (36.4-46.3); Red Blood Count 3.12 M/uL (4.20-5.40); White Blood Count 8.15 K/ul (4.8-10.8)
[2022-12-12] MEDS: LEVOTHYROXINE SODIUM 150 MCG TABLET PO SCH (06:12)
[2022-12-12] MEDS: ACETAMINOPHEN 500 MG TAB PO SCH ×3 (07:29→23:33)
[2022-12-12] MEDS: APIXABAN 5 MG TABLET PO SCH ×2 (08:21→21:47)
[2022-12-12] MEDS: FERROUS SULFATE 325 MG TAB PO SCH (08:23)
[2022-12-12] MEDS: BACLOFEN 10 MG TAB PO SCH ×3 (08:23→21:48)
[2022-12-12] MEDS: LIDOCAINE 5% 1 PATCH TD SCH (08:25)
[2022-12-12] MEDS: lisinopril 10 MG TAB PO SCH (08:25)
[2022-12-12] MEDS: MAGNESIUM OXIDE 400 MG TAB PO SCH (08:26)
[2022-12-12] MEDS: METOPROLOL TARTRATE 25 MG TAB PO SCH ×2 (08:27→21:49)
[2022-12-12] MEDS: POTASSIUM CHLORIDE CRTAB 20 MEQ TABCR PO SCH (08:29)
[2022-12-12] MEDS: POLYETHYLENE (MIRALAX) 17 GM PACK PO SCH (08:30)
[2022-12-12] MEDS: INSULIN ASPART PER UNIT SC SCH ×4 (08:43→21:38)
[2022-12-12] MEDS: LANTUS PER UNIT CHARGE SQ SCH ×2 (08:44→21:38)
[2022-12-12] MEDS: PANTOprazole 40 MG TAB PO SCH (11:46)
--- NOTE | 2022-12-12 15:50 | Hospitalist Progress Note ---
Date of Service December 12, 2022 Assessment & Plan (1) Atrial fibrillation: Plan: Acute moderate risk now resolved and returned to NSR Metoprolol tartrate 25 mg bid continue eliquis. (2) Intertrochanteric fracture of left hip: Plan: acute significant risk now resolved -The patient sustained a mechanical fall from standing day of admission, with a Comminuted, angulated, and displaced intertrochanteric/subtrochanteric fracture of the proximal left femur. - -Dr. Manuel performed surgery on 11/30/2022 Left Trochanteric Femoral Nail holding her Aspirin in face of eliquis for afib, if remains in nsr can consider stopping eilquis after one month Good results after we did increase Ultram dosing to 100 as needed Eliquis a day for DVT prevention as recommended by surgeon Did have post operative acute blood loss anemia and acute kidney injury ->acute kidney injury has resolved (3) Diabetes: Plan: chronic and stable , will need acute management in perioperative period -Holding metformin and semaglutide -Will monitor BSG ACHS, goal is 110-140 - 5 units lantus BID, correction factor of 40 and carb ratio of 15 tqont-nu-mzyx glucoses are acceptable (4) Hypothyroidism: Plan: acute hyperthyroidism, due to over replacement her Synthroid was held for one week resumed at 150 mcg going forward. (5) Asthma: Plan: chronic and -Stable on RA - prn albuterol (6) GERD (gastroesophageal reflux disease): Plan: Chronic stable asymptomatic continue famotidine (7) Hypertension: Plan: -Chronic stable adjusted medications, resume lisinopril as BP has been slightly elevated on 12/08, but will likely hold HCTZ moving forward. (8) Hyperlipidemia: Plan: -Chronic and stable continue atorvastatin (9) Rheumatoid arthritis: Plan: -Chronic and stable, Patient currently on Hydroxychloroquine, will continue her 400 mg PO Qpm Admission and Anticipated Discharge Date Admission Date: November 29, 2022 Subjective Patient was seen and evaluated. There are actually no new changes. Were completely waiting on placement for rehabilitation subsequent to hip fracture that occurred at her place of work while on lunch break Physical Exam Physical Exam: Awake alert appropriate cardiac exam is regular although she had history of A- fib early to stay converted to sinus rhythm Lungs are clear. Left distal extremities with good pulses capillary refill and sensation Results & Data Results & Data ([facility]) Vital Signs (Past 12 Hours) Vital Signs Temp Pulse Pulse Resp BP Pulse Ox O2 Del Method 12/12/22 14:24 99.0 F 59 L 18 113/73 96 Room Air 12/12/22 07:30 Room Air 12/12/22 08:13 98.1 F 64 16 124/78 97 Room Air PG Care Time/CCT Total # of Minutes Spent Total Time Spent with Patient: Total time spent is greater than 50% in coordination of care (as documented) at patient's floor/unit and/or counseling patient: Coding Level of Care Code 52083 SUB INP/OBS CARE 11/03MIN Diagnoses Atrial fibrillation I48.91 Intertrochanteric fracture of left hip S72.142A Diabetes E11.9 Diabetes mellitus type: type 2 Diabetes mellitus complication status: with hyperglycemia Hypothyroidism E03.9 Asthma J45.909 GERD (gastroesophageal reflux disease) K21.9 Hypertension I10 Hyperlipidemia E78.5 Rheumatoid arthritis M06.9 (3) Diabetes Diabetes mellitus type: type 2 Diabetes mellitus complication status: with hyperglycemia
[2022-12-12] MEDS: DOCUSATE SODIUM/SENNA 50/8.6MG TAB PO SCH (21:48)
[2022-12-12] MEDS: FAMOTIDINE 40 MG TABLET PO SCH (21:48)
[2022-12-12] MEDS: HYDROXYCHLOROQUINE SULFATE 200 MG TAB PO SCH (21:49)
[2022-12-12] MEDS: ATORVASTATIN 10 MG TAB PO SCH (21:50)
[2022-12-13] MEDS: traMADol HCL 50 MG TABLET PO PRN ×3 (04:11→16:33)
[2022-12-13] MEDS: LEVOTHYROXINE SODIUM 150 MCG TABLET PO SCH (06:03)
[2022-12-13] MEDS: ACETAMINOPHEN 500 MG TAB PO SCH ×2 (07:28→15:02)
[2022-12-13] MEDS: APIXABAN 5 MG TABLET PO SCH (08:43)
[2022-12-13] MEDS: BACLOFEN 10 MG TAB PO SCH ×2 (08:44→13:38)
[2022-12-13] MEDS: FERROUS SULFATE 325 MG TAB PO SCH (08:45)
[2022-12-13] MEDS: lisinopril 10 MG TAB PO SCH (08:46)
[2022-12-13] MEDS: METOPROLOL TARTRATE 25 MG TAB PO SCH (08:47)
[2022-12-13] MEDS: MAGNESIUM OXIDE 400 MG TAB PO SCH (08:47)
[2022-12-13] MEDS: PANTOprazole 40 MG TAB PO SCH (08:48)
[2022-12-13] MEDS: POTASSIUM CHLORIDE CRTAB 20 MEQ TABCR PO SCH (08:48)
[2022-12-13] MEDS: POLYETHYLENE (MIRALAX) 17 GM PACK PO SCH (08:50)
[2022-12-13] MEDS: LIDOCAINE 5% 1 PATCH TD SCH (08:52)
[2022-12-13] MEDS: INSULIN ASPART PER UNIT SC SCH ×2 (09:11→13:04)
[2022-12-13] MEDS: LANTUS PER UNIT CHARGE SQ SCH (09:13)
--- NOTE | 2022-12-13 14:46 | XRay Report ---
LEFT FEMUR 2 VIEWS CLINICAL HISTORY: Postoperative examination. FINDINGS: AP and crosstable lateral views of the left femur are compared to study dated 11/30/2022. Th e skeletal structures are osteopenic. There is unchanged alignment of a comminuted intertrochanteric/ subtrochanteric fracture of the left proximal femur status post intertrochanteric and intramedullary nail fixation. The orthopedic hardware appears intact. A single cortical lag screw transfixes the dis adalberto end of the nail. There is persistent medial displacement of the lesser trochanter and offset of t he largest fragments. No new fracture seen involving the left femur or the visualized left hemipelvis . A left knee arthroplasty is in place. Skin clips and soft tissue edema are noted in the thigh. IMPRESSION: Unchanged alignment of a subacute left proximal femoral fracture status post intertrochan teric and intramedullary nail fixation. Electronically signed by: Alessio Ahmadi M.D. 12/13/2022 2:45 PM
--- NOTE | 2022-12-13 14:53 | Hospitalist Progress Note ---
Date of Service December 13, 2022 Assessment & Plan (1) Atrial fibrillation: Plan: Acute moderate risk now resolved and returned to NSR Metoprolol tartrate 25 mg bid continue eliquis. (2) Intertrochanteric fracture of left hip: Plan: acute significant risk now resolved -The patient sustained a mechanical fall from standing day of admission, with a Comminuted, angulated, and displaced intertrochanteric/subtrochanteric fracture of the proximal left femur. - -Dr. Manuel performed surgery on 11/30/2022 Left Trochanteric Femoral Nail holding her Aspirin in face of eliquis for afib, if remains in nsr can consider stopping eilquis after one month Good results after we did increase Ultram dosing to 100 as needed Eliquis a day for DVT prevention as recommended by surgeon Did have post operative acute blood loss anemia and acute kidney injury ->acute kidney injury has resolved (3) Diabetes: Plan: chronic and stable , will need acute management in perioperative period -Holding metformin and semaglutide -Will monitor BSG ACHS, goal is 110-140 - 5 units lantus BID, correction factor of 40 and carb ratio of 15 jpgxl-sb-wwnn glucoses are acceptable (4) Hypothyroidism: Plan: acute hyperthyroidism, due to over replacement her Synthroid was held for one week resumed at 150 mcg going forward. (5) Asthma: Plan: chronic and -Stable on RA - prn albuterol (6) GERD (gastroesophageal reflux disease): Plan: Chronic stable asymptomatic continue famotidine (7) Hypertension: Plan: -Chronic stable adjusted medications, resume lisinopril as BP has been slightly elevated on 12/08, but will likely hold HCTZ moving forward. (8) Hyperlipidemia: Plan: -Chronic and stable continue atorvastatin (9) Rheumatoid arthritis: Plan: -Chronic and stable, Patient currently on Hydroxychloroquine, will continue her 400 mg PO Qpm Admission and Anticipated Discharge Date Admission Date: November 29, 2022 Subjective Patient was seen and evaluated. There are actually no new changes. Were completely waiting on placement for rehabilitation subsequent to hip fracture that occurred at her place of work while on lunch break Physical Exam Physical Exam: Awake alert appropriate cardiac exam is regular although she had history of A- fib early to stay converted to sinus rhythm Lungs are clear. Left distal extremities with good pulses capillary refill and sensation Results & Data Results & Data ([facility]) Vital Signs (Past 12 Hours) Vital Signs Temp Pulse Resp BP Pulse Ox O2 Del Method 12/13/22 08:12 97.9 F 62 18 130/82 97 Room Air PG Care Time/CCT Total # of Minutes Spent Total Time Spent with Patient: Total time spent is greater than 50% in coordination of care (as documented) at patient's floor/unit and/or counseling patient: Coding Level of Care Code 58358 SUB INP/OBS CARE 11/03MIN Diagnoses Atrial fibrillation I48.91 Intertrochanteric fracture of left hip S72.142A Diabetes E11.9 Diabetes mellitus type: type 2 Diabetes mellitus complication status: with hyperglycemia Hypothyroidism E03.9 Asthma J45.909 GERD (gastroesophageal reflux disease) K21.9 Hypertension I10 Hyperlipidemia E78.5 Rheumatoid arthritis M06.9 (3) Diabetes Diabetes mellitus type: type 2 Diabetes mellitus complication status: with hyperglycemia
--- NOTE | 2022-12-13 15:39 | Discharge Summary ---
Date of Service December 13, 2022 Admission HPI Per Admitting Provider Lucy is a 62 year old female with a PMH significant for DM II, hypothyroidism, GERD, HTN, hyperlipidemia, asthma, and obesity who presented to the [facility] ED due to a fall and hip pain. In the ED the patient was found to be afebrile hemodynamically stable, and stable on RA. Labs were remarkable for a CBC with WBC WNL, stable Hgb and platelets, CMP WNL. Chest xray was read as "No significant change compared to the prior study. No acute process.". Xrays of the left hip/pelvis was read as "1. Comminuted, angulated, and displaced intertrochanteric/subtrochanteric fracture of the proximal femur. 2. No additional acute fracture is seen involving the right hip or the bony pelvis". Prior to admission the patient was given 125 total mcg of fentanyl and 4 mg IV zofran. At the time of the exam the patient was lying in bed in no acute distress with her significant other sitting bedside. She states that she was in her normal state of health this am and was walking around 11:30 am when she tripped and fell to the ground. She denies any lightheadedness, dizziness, chest pain, SOB, palpitation, or seizure-like activity before or after her fall. She fell on her left side and denies hitting her head or losing consciousness. Her left hip pain is currently a 5/10 after receiving the fentanyl by the ED but she describes her pain currently as muscle spasms in the left hip. She denies current fever, chills, changes in vision, hearing, taste, and smell, chest pain, SOB, cough, abdominal pain, nausea, vomiting, diarrhea, dysuria, hematuria, lower extremity swelling, head, neck, and back pain. Please refer to Dr. Maher's attestation for any changes to the treatment plan Principal Diagnosis Mechanical fall with left hip fracture Discharge Exam Patient medically stable for discharge pain is in good control Discharge Data Allergies Allergy/AdvReac Type Severity Reaction Status Date / Time tocilizumab [From Actemra] Allergy Intermediate Hives Verified 11/29/22 16:29 levofloxacin Allergy Mild RASH Verified 11/29/22 16:29 codeine AdvReac Intermediate N & V Verified 11/29/22 16:29 sulfamethoxazole AdvReac Intermediate mental Verified 11/29/22 16:29 [From Bactrim] changes trimethoprim [From Bactrim] AdvReac Intermediate mental Verified 11/29/22 16:29 changes Consultations 11/29/22 15:30 ED Decision to Admit Stat Procedures Performed Operation Date: 11/30/22 07:00 Actual Procedures p Left Trochanteric Femoral Nail(Left) - Mickey Manuel MD Ordered Studies 11/30/22 11:49 FL hip LT 2-3V Routine Hospital Course (1) Atrial fibrillation: Acute moderate risk now resolved and returned to NSR Metoprolol tartrate 25 mg bid continue eliquis. 30-day duration may stop at that point time but encourage cardiology consultation to see if outpatient event monitor be warranted ever. This seems to be situational related to postoperative stressors that occurred she has been in sinus rhythm and has not had recurrence. (2) Intertrochanteric fracture of left hip: acute significant risk now resolved -The patient sustained a mechanical fall from standing day of admission, with a Comminuted, angulated, and displaced intertrochanteric/subtrochanteric fracture of the proximal left femur. - -Dr. Manuel performed surgery on 11/30/2022 Left Trochanteric Femoral Nail holding her Aspirin in face of eliquis for afib, if remains in nsr can consider stopping eilquis after one month Good results after we did increase Ultram dosing to 100 as needed Eliquis a day for DVT prevention as recommended by surgeon Did have post operative acute blood loss anemia and acute kidney injury ->acute kidney injury has resolved (3) Diabetes: chronic and stable , will need acute management in perioperative period -Holding metformin and semaglutide -Will monitor BSG ACHS, goal is 110-140 - 5 units lantus BID, correction factor of 40 and carb ratio of 15 hihus-mf-olfd glucoses are acceptablepatient may consider returning to metformin and semaglutide on discharge from rehab facility or transitioning prior to discharge (4) Hypothyroidism: acute hyperthyroidism, due to over replacement her Synthroid was held for one week resumed at 150 mcg going forward. (5) Asthma: chronic and -Stable on RA - prn albuterol (6) GERD (gastroesophageal reflux disease): Chronic stable asymptomatic continue famotidine (7) Hypertension: -Chronic stable adjusted medications, resume lisinopril as BP has been slightly elevated on 12/08, but will likely hold HCTZ moving forward. (8) Hyperlipidemia: -Chronic and stable continue atorvastatin (9) Rheumatoid arthritis: -Chronic and stable, Patient currently on Hydroxychloroquine, will continue her 400 mg PO Qpm Total Time Total Time Spent Total Time Spent (In Minutes): It required greater than 30 minutes to prepare this patient for discharge Discharge Plan Discharge Items Patient Disposition: Transfer Assisted Fac Reason For Visit: FALL, LEFT HIP PAIN Discharge Diagnosis: mechanical fall hip fracture with unipolar repair new onset self limited Afib Activity: Per Instructions section Activity Comment: per PT/OT Non-emergency contact: Primary Care Provider Call non-emergency contact if: your symptoms worsen Follow-up/Referrals: Lubna Barker MD [Primary Care Provider] - Diet: Regular Addtl Attending Provider Instructions: please rehab and follow up with Dr Manuel 6 weeks post op approximately the first week of january 2023 Pt has short course of Atrial fibrillation and converted to nsr, the pt will be on eliquis for both afib and her hip for 30 days, then this can stop, would recommend follow up with Cardiology to discuss if a event monitor would be warranted Pending Studies at Discharge: No Stand-Alone Forms: My [facility] Skilled Items Patient informed of condition?: Yes DNR: No Discharge Level of Care: Acute rehab Communicable Disease: No Discharge Prognosis: Stable Lines: None Urinary Catheter: No Medications and DC Order Prescriptions: New lidocaine 5 % Adhesive Patch,Medicated 1 patch transdermal QAM Qty: 30 0RF metoprolol tartrate 25 mg Tablet 25 mg PO BID Qty: 60 0RF insulin glargine [Lantus U-100 Insulin] 100 unit/mL Solution 5 unit subcut BID Qty: 20 0RF levothyroxine [Synthroid] 150 mcg Tablet 150 mcg PO DAILYBB Qty: 30 0RF insulin aspart U-100 [Novolog FlexPen U-100 Insulin] 100 unit/mL (3 mL) insulin pen 1 sliding scale dose subcut USEASDIRECTD Qty: 15 0RF Rx Instructions: goal 110-140 CF 40 carb ratio 15 Eliquis 5 mg Tablet 5 mg PO BID Qty: 30 0RF Continued atorvastatin 10 mg tablet 10 mg PO QPM Qty: 90 3RF metformin 1,000 mg tablet 1,000 mg PO BID 90 Days Qty: 180 1RF omeprazole 40 mg capsule,delayed release(DR/EC) 40 mg PO QAM Qty: 90 1RF hydrochlorothiazide 25 mg tablet 25 mg PO QAM Qty: 90 1RF lisinopril 10 mg tablet 10 mg PO QAM Qty: 90 3RF Rx Instructions: TAKE 1 TABLET DAILY famotidine 40 mg tablet 40 mg PO PM Qty: 90 1RF celecoxib [Celebrex] 200 mg capsule 200 mg PO Q12H 90 Days Qty: 180 3RF levothyroxine 175 mcg tablet 175 mcg PO QAM Qty: 90 3RF Ozempic 0.25 mg or 0.5 mg(2 mg/1.5 mL) pen injector 0.5 mg subcut WK Qty: 1.5 3RF Rx Instructions: TAKES ON WEDNESDAYS Simponi 50 mg/0.5 mL pen injector 50 mg subcut MONTHLY Rx Instructions: TAKES ON THE OF THE MONTH prednisone 20 mg tablet 20 mg PO DAILY PRN (Reason: for flare up ) Rx Instructions: patient take 20mg x1 week then 10mg x1 calcium carb and citrate-vitD3 600 mg calcium- 500 unit Tablet Extended Release 1 tab PO BID magnesium 250 mg Tablet 250 mg PO QAM cholecalciferol (vitamin D3) [Vitamin D3] 2,000 unit Tablet 2,000 unit PO QAM omega 1-bxp-gaa-fish oil [Fish Oil] 1,000 mg (120 mg-180 mg) Capsule 1,000 mg PO BID iron 159 mg (45 mg iron) Tablet Extended Release 159 mg PO QAM hydroxychloroquine [Plaquenil] 200 mg Tablet 400 mg PO QPM potassium chloride 20 mEq tablet extended release 20 meq PO QAM aspirin 81 mg tablet,delayed release (DR/EC) 81 mg PO QAM triamcinolone acetonide 0.1 % cream 1 applic topical BID PRN (Reason: Skin Irritation) Rx Instructions: Use for no longer than 2 wks. amoxicillin 500 mg tablet 2,000 mg PO DIRECTED PRN (Reason: prophylaxis) Rx Instructions: ONE HOUR PRIOR TO DENTAL PROCEDURE Discharge Orders: Discharge Order (Routine); Ordered 12/13/22 Ordered By: Frankie Ramos Admission Data Admit Date/Time: 11/29/22 16:47 Attending Provider: Frankie Ramos Admit Provider: Denise Maher Primary Care Provider: Lubna Barker Other Providers: [facility] ; [facility] ; Denise Maher Coding Level of Care Code 19940 INP/OBS DISCH >30 MIN Diagnoses Atrial fibrillation I48.91 Intertrochanteric fracture of left hip S72.142A Diabetes E11.9 Diabetes mellitus type: type 2 Diabetes mellitus complication status: with hyperglycemia Hypothyroidism E03.9 Asthma J45.909 GERD (gastroesophageal reflux disease) K21.9 Hypertension I10 Hyperlipidemia E78.5 Rheumatoid arthritis M06.9
--- NOTE | 2022-12-13 16:06 | Orthopedic Progress Note ---
Date of Service December 13, 2022 Assessment & Plan (1) Intertrochanteric fracture of left hip: (2) Status post-operative repair of closed fracture of left hip: Plan POD13 s/p Left Trochanteric Femoral Nail (DOS 12/01/2022; Dr. Manuel). Making expected progress. No changes to plan of care. 2-week postop checkup done today while inpatient Continue PT/OT. She is weightbearing as tolerated. Can forego the 2-week clinic visit. She should be evaluated at 6 weeks postoperatively. I reviewed this with the patient and her partner. Dispo: Orthopedic clinic follow-up at 6 weeks postop for x-rays. Contact me via [employer] w any questions. Subjective Reports pain, particularly when she was being moved for x-rays. Overall making progress. Excited to move onto next level of care. Review of Systems All systems reviewed & are unremarkable except as noted in HPI & below. Physical Exam LLE: Wounds are well approximated, without erythema or drainage. [place] were removed. Dressings applied. Constitutional WD/WN, vitals as above no acute distress and not intoxicated appearing Respiratory normal respiratory effort; no labored breathing Cardiovascular Extremities: normal capillary refill Results & Data Results & Data Laboratory Results . Diagnostic Findings Repeat radiographs of the femur were taken today include AP and lateral views. I agree with radiology that there is no evidence of interval displacement. No obvious consolidation or callus formation, yet, as expected. PG Care Time/CCT Total # of Minutes Spent Total Time Spent with Patient: Total time spent is greater than 50% in coordination of care (as documented) at patient's floor/unit and/or counseling patient: Coding Level of Care Code 94519 Post Operative Follow-Up Diagnoses Intertrochanteric fracture of left hip S72.142A Status post-operative repair of closed fracture of left hip Z98.890; Z87.81
--- NOTE | 2022-12-15 08:22 | Anesthesiology Progress Note ---
Date of Service November 30, 2022 Anesthesia Post Procedure Pain Intensity Left Hip: Pain Intensity: 3 Transfer of Care Handoff Completed per policy Notes Mental Status: alert / awake / arousable and participated in evaluation Patient Amnestic to Procedure: Yes Nausea / Vomiting: adequately controlled Pain: adequately controlled Airway Patency, RR, SpO2: stable & adequate BP & HR: stable & adequate Hydration State: stable & adequate Anesthetic Complications: no major complications apparent and Pt Satisfied with anesthetic care
== END 2022-12-13 18:01 | DRG 481 ==
LOC: ED 12:32 → 3W 16:47 → SUATTDRO 16:47 → 3W 19:54 → 2S 12-01 13:36 → 3E 12-06 19:22